=== PATIENT | female | born 1965 | race Caucasian/White ===

== ENCOUNTER 2022-12-31 10:38 | Outpatient (OUT) | payer OTHER, SELFPAY ==
--- NOTE | 2022-12-31 | XR_ITS ---
The [address] [address] Patient Name: ELIAS HELLER MRN: [id number] date: 1965 Sex: F Assigned Patient Location: [facility] Current Patient Location: [facility] Accession/Order Number: [id number] Exam Date: 12/31/2022 11:00 Report Date: 12/31/2022 12:31 At the request of: SHELDON SPICER Procedure: XR knee RT 4V PROCEDURE: XR knee RT 4V HISTORY: Right Knee Pain M25.561 , hyperextension injury COMPARISON: None. FINDINGS: BONES:No fracture, acute abnormality, or significant arthropathy. SOFT TISSUES:No visible soft tissue swelling. EFFUSION:None visible. OTHER: Negative. XR/XR knee RT 4V IMPRESSION: 1. No acute bone abnormality or visible soft tissue injury. Electronically authenticated by: CAMILLE ANGELES Date: 12/31/2022 12:31
--- NOTE | 2022-12-31 10:46 | US_ITS ---
The [address] [address] Patient Name: ELIAS HELLER MRN: [id number] date: 1965 Sex: F Assigned Patient Location: RAD Current Patient Location: [facility] Accession/Order Number: [id number] Exam Date: 12/31/2022 11:30 Report Date: 12/31/2022 13:49 At the request of: SHELDON SPICER Procedure: US venous doppler LE RT EXAMINATION: US venous doppler LE RT HISTORY: Right leg Pain M79.604 COMPARISON: No relevant comparison available. FINDINGS: REGION: Right lower extremity THROMBI: None. COMPRESSIBILITY: Normal compressibility. FLOW: Normal waveform and antegrade flow between 5 and 20 cm/s. OTHER: Fluid collection within medial aspect of popliteal fossa 4.8 x 4.6 x 1.6 cm. US/US venous doppler LE RT IMPRESSION: 1. No deep vein thrombus within the right lower extremity. 2. 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 Electronically authenticated by: CAMILLE ANGELES Date: 12/31/2022 13:49
== END 2022-12-31 10:39 | disposition home or self-care (01) ==
LOC: RAD 10:41
PROVIDERS: PCP Family Medicine; Visit Provider Family Medicine
DX: M25.561 Pain in right knee (principal); M79.604 Pain in right leg
CPT/HCPCS: 73564; 93971

== ENCOUNTER 2023-09-09 19:41 | Emergency (ER) | payer MEDICAID, SELFPAY ==
[2023-09-09 19:52] VITALS: BP 127/91; PULSE 118; TEMP 37; O2SAT 96; BMI 32.5
[2023-09-09 20:22] LABS: Bilirubin Urine NEGATIVE (NEGATIVE); Blood Urine MODERATE (NEGATIVE); Clarity Urine CLEAR (CLEAR); Color Urine YELLOW (YELLOW); Glucose Urine UA NEGATIVE (NEGATIVE); Ketones Urine NEGATIVE (NEGATIVE); Leukocyte Esterase Urine NEGATIVE (NEGATIVE); Nitrite Urine NEGATIVE (NEGATIVE); Protein Urine NEGATIVE (NEG/TRACE); Urine Microscopic Indicated YES; Urobilinogen Urine 0.2 EU/dL (0.2-1.0)
[2023-09-09 20:29] LABS: Bacteria Urine TRACE #/HPF (NONE SEEN); Cast Seen? NONE SEEN #/LPF (NONE SEEN); Crystals Seen? None Seen #/HPF (None Seen); Mucus Urine NONE SEEN (NONE SEEN); Squamous Epithelial Cell Urine FEW #/LPF (NONE/RARE); Urine Culture Indicated NO; WBC Urine 0-2 #/HPF (NONE SEEN)
--- NOTE | 2023-09-09 21:10 | ECG_ITS ---
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
--- NOTE | 2023-09-09 21:11 | CT_ITS ---
[address] [address] Patient Name: ELIAS HELLER MRN: [id number] date: 1965 Sex: F Assigned Patient Location: ER Current Patient Location: Accession/Order Number: [id number] Exam Date: 09/09/2023 21:46 Report Date: 09/09/2023 22:17 At the request of: PAO COHEN Procedure: CT abdomen pelvis w con EXAM: CT abdomen pelvis w con HISTORY: Abdominal pain, vomiting and diarrhea COMPARISON: None. TECHNIQUE: Dose reduction techniques were achieved by using automated exposure control and/or adjustment of mA and/or kV according to patient size and/or use of iterative reconstruction technique.CT of the abdomen and pelvis with contrast. FINDINGS: Mild left basilar platelike atelectasis. Mild patchy atelectasis of the right middle lobe. Liver, gallbladder, spleen, pancreas, kidneys, distal esophagus, stomach, duodenum and adrenal glands are normal. No colonic wall thickening or dilation. No small bowel dilation. No mesenteric edema. Appendix is normal. No bladder wall thickening. No acute osseous abnormality. CT/CT abdomen pelvis w con IMPRESSION: 1. No acute abnormality of the abdomen or pelvis. 2. No hydronephrosis. No hydroureter. No nephroureterolithiasis. No bladder stones. No focal bladder wall thickening. 3. No radiopaque gallstones. The pancreas is normal. Appendix is normal. Electronically authenticated by: PHIL KNIGHT Date: 09/09/2023 22:17
--- NOTE | 2023-09-09 21:12 | ED.ABDPAIN1 ---
Documented by User: MACEY Eid 09/09/23 21:21 HPI - Abdominal Pain General Chief Complaint: Abdominal Pain Stated Complaint: ABDOMINAL PAIN, HEAD PAIN, NAUSEA Time Seen by Provider: 09/09/23 21:07 Source: patient Mode of arrival: walk-in Limitations: no limitations History of Present Illness HPI narrative: Patient is a 57-year-old female who presents to the emergency department for a 1 day history of pain across the abdomen. She reports pain in the bilateral flanks, epigastrium and bilateral upper quadrants of the abdomen. She states she feels very full, she has been belching. She has had no fevers or upper respiratory symptoms. No medications taken prior to arrival. She states that she has had vomiting and diarrhea, although she has had more vomiting than diarrhea and has not had any blood in her stool. No recent antibiotics or travel. No sick contacts in the home. She denies urinary symptoms. She has had a previous tubal ligation with no other abdominal surgeries. Related Data Allergies Allergy/AdvReac Type Severity Reaction Status Date / Time meperidine [From Demerol] Allergy Mild Verified 09/09/23 19:55 Review of Systems ROS Constitutional Denies: fever or chills Ears, nose, mouth, and throat Denies: throat pain or nasal congestion Cardiovascular Denies: chest pain Respiratory Denies: shortness of breath or cough Gastrointestinal Reports: abdominal pain, nausea and diarrhea Integumentary/Breast Denies: rash Neurological Reports: headache Hematologic/Lymphatic Denies: easy bruising or easy bleeding Exam Narrative Exam Narrative: Gen.: Awake, alert, in no distress Head: Normocephalic, atraumatic ENT: Moist mucous membranes Respiratory: No respiratory distress, lungs clear bilaterally Cardio: Regular rate and rhythm Gastrointestinal: Abdomen is soft, nondistended and Tender to palpation in the epigastrium and bilateral upper quadrants of the abdomen, no guarding or rebound Extremities: Moves extremities equally Psych: Normal mood and affect Neuro: No focal neuro deficit Skin: Warm, dry, intact Constitutional Vital Signs, click to edit/add: Last Vital Signs Temp 98.6 F 09/09/23 19:52 Pulse 118 H 09/09/23 19:52 Resp 18 09/09/23 19:52 BP 127/91 09/09/23 19:52 Pulse Ox 96 09/09/23 19:52 O2 Del Method Room Air 09/09/23 19:52 Course Vital Signs Vital signs: Vital Signs Temperature 98.6 F 09/09/23 19:52 Pulse Rate 118 H 09/09/23 19:52 Respiratory Rate 18 09/09/23 19:52 Blood Pressure 127/91 09/09/23 19:52 Pulse Oximetry 96 09/09/23 19:52 Oxygen Delivery Method Room Air 09/09/23 19:52 Temperature 98.6 F 09/09/23 19:52 Pulse Rate 118 H 09/09/23 19:52 Respiratory Rate 18 09/09/23 19:52 Blood Pressure 127/91 09/09/23 19:52 Pulse Oximetry 96 09/09/23 19:52 Oxygen Delivery Method Room Air 09/09/23 19:52 MDM - Abdominal Pain MDM Narrative Medical decision making narrative: 2119: On my evaluation, the patient is uncomfortable with pain diffusely across the upper abdomen and bilateral flanks. She has no focal tenderness or pain out of proportion on exam, vitals are stable. IV was established, labs and urine obtained. Fluids, medication for pain and nausea were ordered as well as a CT scan of the abdomen and pelvis. Case is turned over to attending physician at this time for disposition. Medical Records Attestation: I reviewed the patient's medical records. Lab Data Attestation: I reviewed the patient's lab results. Labs: Lab Results 09/09/23 09/09/23 Range/Units 20:15 21:22 WBC 10.9 (4.0-11.0) 10^3/uL RBC 5.42 H (4.20-5.40) 10^6/uL Hgb 14.1 (12.0-16.0) g/dL Hct 43.5 (36.0-48.0) % MCV 80.3 L (81.0-99.0) fL MCH 26.0 L (26.7-34.0) pg MCHC 32.4 (29.9-35.2) g/dL RDW 15.7 H (11.0-15.0) % Plt Count 358 (150-450) 10^3/uL MPV 9.8 (9.5-13.5) fL Neut % (Auto) 86.1 H (43.0-75.0) % Lymph % (Auto) 8.2 L (20.5-60.0) % [place] % (Auto) 4.6 (1.7-12.0) % Eos % (Auto) 0.5 L (0.9-7.0) % Baso % (Auto) 0.2 (0.2-2.0) % Neut # (Auto) 9.4 H (1.4-6.5) 10^3/uL Lymph # (Auto) 0.9 L (1.2-3.8) 10^3/uL [place] # (Auto) 0.5 (0.3-0.8) 10^3/uL Eos # (Auto) 0.1 (0.0-0.7) 10^3/uL Baso # (Auto) 0.0 (0.0-0.1) 10^3/uL Abs Immat Gran (auto) 0.04 H (0.00-0.03) 10^3/uL Imm/Tot Granulo (auto) 0.4 (0.0-0.5) % Sodium 140 (136-145) mmol/L Potassium 3.8 (3.5-5.1) mmol/L Chloride 104 (98-107) mmol/L Carbon Dioxide 25.0 (21.0-32.0) mmol/L Anion Gap 14.8 BUN 19.0 H (7.0-18.0) mg/dL Creatinine 0.92 (0.55-1.02) mg/dL Est GFR ( Amer) >60 (>=60) Est GFR (Non-Af Amer) >60 (>=60) BUN/Creatinine Ratio 20.7 Glucose 89 (74-106) mg/dL Lactate 1.2 (0.4-2.0) mmol/L Calcium 8.9 (8.5-10.1) mg/dL Total Bilirubin 0.3 (0.2-1.0) mg/dL AST 20 (15-37) U/L ALT 34 (14-59) U/L Alkaline Phosphatase 94 (46-116) U/L Troponin I High Sens 7.6 (4.0-51.3) pg/mL Total Protein 7.0 (6.4-8.2) g/dL Albumin 3.2 L (3.4-5.0) g/dL Globulin 3.8 g/dL Albumin/Globulin Ratio 0.8 Lipase 38.0 (16.0-77.0) U/L Urine Color Yellow (YELLOW) Urine Clarity Clear (CLEAR) Urine pH 6.0 (5.0-9.0) Ur Specific [place] 1.020 (1.005-1.025) Urine Protein Negative (NEG/TRACE) mg/dL Urine Glucose (UA) Negative (NEGATIVE) mg/dL Urine Ketones Negative (NEGATIVE) mg/dL Urine Occult Blood Moderate A (NEGATIVE) Urine Nitrite Negative (NEGATIVE) Urine Bilirubin Negative (NEGATIVE) Urine Urobilinogen 0.2 (0.2-1.0) EU/dL Ur Leukocyte Esterase Negative (NEGATIVE) Urine RBC 5-10 A (0-2) #/HPF Urine WBC 0-2 A (NONE SEEN) #/HPF Ur Squamous Epith Cells Few A (NONE/RARE) #/LPF Urine Crystals None seen (None Seen) #/HPF Urine Bacteria Trace A (NONE SEEN) #/HPF Urine Casts None seen (NONE SEEN) #/LPF Urine Mucus None seen (NONE SEEN) Ur Culture Indicated? No ECG Data Attestation: I personally reviewed and interpreted this ECG as follows: (Sinus tachycardia at a rate of 100, no acute ST elevation or ectopy. EKG reviewed by attending physician) Discharge Plan Discharge Stand Alone Forms: Portal Instructions Chief Complaint: Abdominal Pain Clinical Impression: Abdominal pain, Gastroenteritis Patient Disposition: Home, Self-Care Print Language: Bruneian Instructions: Gastroenteritis (ED), Hematuria (ED) Additional Instructions: follow up with your doctor next week for recheck including recheck urine Referrals: Laurie Franks MD [Primary Care Provider] - 1 week Documented by User: Jason Smith MD 09/09/23 22:55 HPI - Abdominal Pain General Chief Complaint: Abdominal Pain Stated Complaint: ABDOMINAL PAIN, HEAD PAIN, NAUSEA Time Seen by Provider: 09/09/23 21:07 Related Data Allergies Allergy/AdvReac Type Severity Reaction Status Date / Time meperidine [From Demerol] Allergy Mild Verified 09/09/23 19:55 Exam Constitutional Vital Signs, click to edit/add: Last Vital Signs Temp 98.6 F 09/09/23 19:52 Pulse 118 H 09/09/23 19:52 Resp 18 09/09/23 19:52 BP 127/91 09/09/23 19:52 Pulse Ox 96 09/09/23 19:52 O2 Del Method Room Air 09/09/23 19:52 Course Vital Signs Vital signs: Vital Signs Temperature 98.6 F 09/09/23 19:52 Pulse Rate 118 H 09/09/23 19:52 Respiratory Rate 18 09/09/23 19:52 Blood Pressure 127/91 09/09/23 19:52 Pulse Oximetry 96 09/09/23 19:52 Oxygen Delivery Method Room Air 09/09/23 19:52 Temperature 98.6 F 09/09/23 19:52 Pulse Rate 118 H 09/09/23 19:52 Respiratory Rate 18 09/09/23 19:52 Blood Pressure 127/91 09/09/23 19:52 Pulse Oximetry 96 09/09/23 19:52 Oxygen Delivery Method Room Air 09/09/23 19:52 MDM - Abdominal Pain MDM Narrative Medical decision making narrative: 2119: On my evaluation, the patient is uncomfortable with pain diffusely across the upper abdomen and bilateral flanks. She has no focal tenderness or pain out of proportion on exam, vitals are stable. IV was established, labs and urine obtained. Fluids, medication for pain and nausea were ordered as well as a CT scan of the abdomen and pelvis. Case is turned over to attending physician at this time for disposition. care transferred at end of PA shift. Patient is feeling better after treatment by PA. CT abdomen without acute findings. labs acceptable except for mild hematuria. Patient advised of the working diagnosis and the need to followup regarding her urine Lab Data Labs: Lab Results 09/09/23 09/09/23 Range/Units 20:15 21:22 WBC 10.9 (4.0-11.0) 10^3/uL RBC 5.42 H (4.20-5.40) 10^6/uL Hgb 14.1 (12.0-16.0) g/dL Hct 43.5 (36.0-48.0) % MCV 80.3 L (81.0-99.0) fL MCH 26.0 L (26.7-34.0) pg MCHC 32.4 (29.9-35.2) g/dL RDW 15.7 H (11.0-15.0) % Plt Count 358 (150-450) 10^3/uL MPV 9.8 (9.5-13.5) fL Neut % (Auto) 86.1 H (43.0-75.0) % Lymph % (Auto) 8.2 L (20.5-60.0) % [place] % (Auto) 4.6 (1.7-12.0) % Eos % (Auto) 0.5 L (0.9-7.0) % Baso % (Auto) 0.2 (0.2-2.0) % Neut # (Auto) 9.4 H (1.4-6.5) 10^3/uL Lymph # (Auto) 0.9 L (1.2-3.8) 10^3/uL [place] # (Auto) 0.5 (0.3-0.8) 10^3/uL Eos # (Auto) 0.1 (0.0-0.7) 10^3/uL Baso # (Auto) 0.0 (0.0-0.1) 10^3/uL Abs Immat Gran (auto) 0.04 H (0.00-0.03) 10^3/uL Imm/Tot Granulo (auto) 0.4 (0.0-0.5) % Sodium 140 (136-145) mmol/L Potassium 3.8 (3.5-5.1) mmol/L Chloride 104 (98-107) mmol/L Carbon Dioxide 25.0 (21.0-32.0) mmol/L Anion Gap 14.8 BUN 19.0 H (7.0-18.0) mg/dL Creatinine 0.92 (0.55-1.02) mg/dL Est GFR ( Amer) >60 (>=60) Est GFR (Non-Af Amer) >60 (>=60) BUN/Creatinine Ratio 20.7 Glucose 89 (74-106) mg/dL Lactate 1.2 (0.4-2.0) mmol/L Calcium 8.9 (8.5-10.1) mg/dL Total Bilirubin 0.3 (0.2-1.0) mg/dL AST 20 (15-37) U/L ALT 34 (14-59) U/L Alkaline Phosphatase 94 (46-116) U/L Troponin I High Sens 7.6 (4.0-51.3) pg/mL Total Protein 7.0 (6.4-8.2) g/dL Albumin 3.2 L (3.4-5.0) g/dL Globulin 3.8 g/dL Albumin/Globulin Ratio 0.8 Lipase 38.0 (16.0-77.0) U/L Urine Color Yellow (YELLOW) Urine Clarity Clear (CLEAR) Urine pH 6.0 (5.0-9.0) Ur Specific [place] 1.020 (1.005-1.025) Urine Protein Negative (NEG/TRACE) mg/dL Urine Glucose (UA) Negative (NEGATIVE) mg/dL Urine Ketones Negative (NEGATIVE) mg/dL Urine Occult Blood Moderate A (NEGATIVE) Urine Nitrite Negative (NEGATIVE) Urine Bilirubin Negative (NEGATIVE) Urine Urobilinogen 0.2 (0.2-1.0) EU/dL Ur Leukocyte Esterase Negative (NEGATIVE) Urine RBC 5-10 A (0-2) #/HPF Urine WBC 0-2 A (NONE SEEN) #/HPF Ur Squamous Epith Cells Few A (NONE/RARE) #/LPF Urine Crystals None seen (None Seen) #/HPF Urine Bacteria Trace A (NONE SEEN) #/HPF Urine Casts None seen (NONE SEEN) #/LPF Urine Mucus None seen (NONE SEEN) Ur Culture Indicated? No Discharge Plan Discharge Stand Alone Forms: Portal Instructions Chief Complaint: Abdominal Pain Clinical Impression: Abdominal pain, Gastroenteritis Patient Disposition: Home, Self-Care Print Language: [place]ian Instructions: Gastroenteritis (ED), Hematuria (ED) Additional Instructions: follow up with your doctor next week for recheck including recheck urine Referrals: Laurie Franks MD [Primary Care Provider] - 1 week
[2023-09-09 21:30] LABS: Basophils Percent Auto 0.2 % (0.2-2.0); Eosinophils Absolute Auto 0.1 10^3/uL (0.0-0.7); Eosinophils Percent Auto 0.5 % (0.9-7.0); Hematocrit 43.5 % (36.0-48.0); Hemoglobin 14.1 g/dL (12.0-16.0); Immature Granulocytes Abs Auto 0.04 10^3/uL (0.00-0.03); Immature Granulocytes Pct Auto 0.4 % (0.0-0.5); Lymphocytes Absolute Auto 0.9 10^3/uL (1.2-3.8); Lymphocytes Percent Auto 8.2 % (20.5-60.0); Mean Corpuscular HGB Conc 32.4 g/dL (29.9-35.2); Mean Corpuscular Volume 80.3 fL (81.0-99.0); Mean Platelet Volume 9.8 fL (9.5-13.5); Monocytes Absolute Auto 0.5 10^3/uL (0.3-0.8); Monocytes Percent Auto 4.6 % (1.7-12.0); Neutrophils Absolute Auto 9.4 10^3/uL (1.4-6.5); Neutrophils Percent Auto 86.1 % (43.0-75.0); Platelet Count 358 10^3/uL (150-450); Red Blood Count 5.42 10^6/uL (4.20-5.40); Red Cell Distribution Width 15.7 % (11.0-15.0); White Blood Count 10.9 10^3/uL (4.0-11.0)
[2023-09-09] MEDS: ONDANSETRON PF 4 MG/2 ML VIAL IV (21:32)
[2023-09-09] MEDS: 0.9 % SODIUM CHLORIDE 1,000 ML 999 ML IV (21:32)
[2023-09-09] MEDS: HYOSCYAMINE SULFATE 0.125 MG TAB.SUBL SL (21:33)
[2023-09-09] MEDS: FAMOTIDINE/PF 20 MG/2 ML VIAL IV (21:33)
[2023-09-09] MEDS: HYDROMORPHONE HCL 1 MG/ML CARTRIDGE 0.5 MG IVP (21:33)
[2023-09-09 21:46] LABS: Alanine Aminotransferase 34 U/L (14-59); Albumin Globulin Ratio 0.8; Albumin Level 3.2 g/dL (3.4-5.0); Alkaline Phosphatase 94 U/L (46-116); Anion Gap 14.8; Aspartate Amino Transferase 20 U/L (15-37); BUN Creatinine Ratio 20.7; Bilirubin Total 0.3 mg/dL (0.2-1.0); Calcium 8.9 mg/dL (8.5-10.1); Chloride 104 mmol/L (98-107); Estimated GFR (African America >60 (>=60); Estimated GFR (Non-African Ame >60 (>=60); Globulin 3.8 g/dL; Glucose 89 mg/dL (74-106); Potassium 3.8 mmol/L (3.5-5.1); Sodium 140 mmol/L (136-145)
[2023-09-09 21:49] LABS: Lactate/Lactic Acid 1.2 mmol/L (0.4-2.0)
[2023-09-09 21:51] LABS: Troponin I High Sensitivity 7.6 pg/mL (4.0-51.3)
[2023-09-09] MEDS: ONDANSETRON 4 MG RAPDIS TABLET SL (23:05)
== END 2023-09-09 23:14 | disposition home or self-care (01) ==
PROVIDERS: Physician Assistant; Emergency Provider Internal Medicine; PCP Family Medicine
DX: K52.9 Noninfective gastroenteritis and colitis, unspecified (principal); R10.11 Right upper quadrant pain; Z98.51 Tubal ligation status; R51.9 Headache, unspecified; R10.12 Left upper quadrant pain; R11.0 Nausea; R31.9 Hematuria, unspecified
CPT/HCPCS: 36415; 74177; 80053; 81001; 83605; 83690; 84484; 85025; 93005; 96361; 96374; 96375; 99285; J1170; Q9967

== ENCOUNTER 2023-11-29 13:11 | Emergency (ER) | payer OTHER, SELFPAY ==
[2023-11-29 13:14] VITALS: BP 122/97; PULSE 88; TEMP 36.8; O2SAT 98; BMI 34.4
--- NOTE | 2023-11-29 13:29 | CT_ITS ---
[address] [address] Patient Name: ELIAS HELLER MRN: [id number] date: 1965 Sex: F Assigned Patient Location: ER Current Patient Location: ER Accession/Order Number: [id number] Exam Date: 11/29/2023 13:53 Report Date: 11/29/2023 14:35 At the request of: PAO COHEN Procedure: CT abdomen pelvis wo con EXAM: CT abdomen pelvis wo con HISTORY: Left flank pain COMPARISON: 09/09/2023, 01/05/2021 TECHNIQUE: CT abdomen pelvis without contrast. Axial scans with reformatted coronal and sagittal images. Individualized dose reduction used for this exam. FINDINGS: Lower chest: Stable, no acute process. ABDOMEN: Normal kidneys without renal or ureteral calculus or hydronephrosis. Unremarkable liver, adrenal glands, pancreas spleen. Normal-appearing fluid-filled gallbladder. No ascites or abdominal fluid. No adenopathy. Normal size aorta. No bowel dilatation wall thickening or edema. Normal appendix. No acute abnormality left flank. Pelvis: No mass or adenopathy or free fluid. No uterine or adnexal pathology. Small amount of fluid in the bladder. MUSCULOSKELETAL: No suspicious bone lesion. CT/CT abdomen pelvis wo con IMPRESSION: No acute abnormality lower chest, abdomen or pelvis. No acute left flank abnormality. Electronically authenticated by: CARMEN REEDER Date: 11/29/2023 14:35
--- OUTSIDE RECORDS SUMMARY | 2023-11-29 13:38 | XMS_ITS | CCD ---
Author Organization [facility] Care Team Providers Care Singing Telegram Performer Name Role Phone Laurie Spicer MD Primary Care Provider KYLE WATSON Attending Unavailable LAURIE SPICER Referring Unavailable LAURIE SPICER Primary Care Unavailable Laurie Spicer Unavailable Unavailable Unavailable MD Marissa Iglesias Attending Provider [phone] MD Jaquelin Christie Referring Provider MD Laurie Spicer Primary Care Provider Laurie Spicer Primary Care Unavailable Marissa Iglesias Attending Unavailable Marissa Iglesias Admitting Unavailable Jaquelin Christie Referring Unavailable Laurie Spicer Unavailable Marissa Iglesias Attending Unavailable Marissa Iglesias Referring Unavailable Dr. Luarie Spicer Primary Care Dr. Laurie Moe Primary Care Unav ailMarissa Harding Attending Unavailable Marissa Iglesias Referring Unavailable Jaquelin Christie Attending Unavailable Dr. Laurie Spicer Primary Care Unav ailMarissa Harding Attending Unavailable Marissa Iglesias Referring Unavailable Dr. Laurie Spicer Primary Care Unav yared Fu, DR MORTON Attending Unavailable JAMES ., DR MORTON Consulting Unavailable JAMES ., DR MORTON Admitting Unavailable LAURIE SPICER Primary Care Unavailable MARJAN CHAPA Consulting Unavailab le MISC, DR CODY Admitting Unavailable LAURIE SPICER Primary Care Unavailable MISC, DR CODY Attending Unavailable MISC, DR CODY Consulting Unavailable Roderick THOMPSON Attending Unavailable Laurie Spicer MD Primary Care Provider Karlene Wang Unavailable ALEXEI GALVAN Attending LAURIE Nicole Referring Unavailable LAURIE SPICER Primary Care Unavailable ALEXEI GALVAN Attending LAURIE Nicole Referring Unavailable LAURIE SPICER Primary Care Unavailable MARISSA IGLESIAS Attending Unavailable LAURIE SPICER Primary Care Unavailable JAJA HARDING Attending Unavailable MARISSA IGLESIAS Referring Unavailable LAURIE SPICER Primary Care Unavailable Allergies Allergy Classification Reported Allergen(s) Allergy Type Date of Onset Reaction(s) Facility (6 sources) Meperidine; Translations: [MEPERIDINE (PF)] Drug Allergy 6 GI Upset, Itching [facility] Work Phone: (20 sources) Meperidine; Translations: [Demerol TABS] Drug Allergy 2 [facility] (4 sources) Meperidine; Translations: [meperidine] Drug Allergy 2 [facility] (2 sources) Meperidine; Translations: [Demerol] Drug Allergy 5 [facility] Repository Medications Current Medications Medication Drug Class(es) Dates Sig (Normalized) Sig (Original) Aspir-81 (16 sources) Aspir-81 Active aspirin 81 mg delayed release oral tablet (12 sources) Platelet Aggregation Inhibitor, Nonsteroidal Anti-inflammatory Drug take 1 tablet by mouth in the morning aspirin 81 mg Take 1 tablet (81 mg total) by mouth in the morning. 0 Active Comment on above: Take 81 mg by mouth once daily. atorvastatin 40 mg oral tablet (17 sources) HMG-CoA Reductase Inhibitor Start: 11-05-2022 take 1 tablet by mouth once daily atorvastatin (LIPITOR) 40 mg tablet Take 1 tablet (40 mg total) by mouth nightly. 0 11/05/2022 Active Start: 06-01-2022 take 1 tablet by margoth th at bedtime Atorvastatin Calcium 40 MG Oral Tablet TAKE 1 TABLET AT BEDTIME. Quantity: 90 Refills: 1 Ordered: 31-Aug-2022 Marissa Iglesias MD Start : 01-Jun-2022 Active New start take 1 tablet by margoth th every twenty-four hours Atorvastatin Calcium 10 MG 1 tablet Orally Once a day Active busPIRone hydrochloride 10 mg oral tablet (20 sources) take 1 tablet by mouth twice daily busPIRone HCl 10 MG TAKE 1 TABLET BY MOUTH TWICE A DAY for 90 Active Calcium (19 sources) Phosphate Binder, Calcium Calcium Active Calcium + D TABS TAKE 1 TABLET DAILY. Quantity: 0 Refills: 0 Ordered: 01-Jun-2022 DO Active Calcium Carbonate / vitamin D3 (3 sources) calcium carbonat e/vitamin D3 (CALCIUM WITH VITAMIN D ORAL) Take by mouth. 0 Active Cetirizine (16 sources) Histamine-1 Receptor Antagonist Cetirizine HCl Activ e clobetasol propionate 0.5 mg/ml topical cream (7 sources) Corticosteroid Clobetasol Propi britt 0.05 % 1 application Externally Twice a day for 10 days Active Clobetasol Propi britt 0.05 % 1 application Externally Twice a day for 10 days Active cyclobenzaprine hydrochloride 10 mg oral tablet (20 sources) Muscle Relaxant Start: 06-08-2022 take 1 tablet by mouth at bedtime Cyclobenzaprine HCl 10 MG 1 tablet Orally at bedtime for 30 day(s) Jun, Active docusate sodium 100 mg oral capsule (14 sources) take 1 capsule by mouth every twenty-four hours Stool Softener 100 MG 1 capsule as needed Orally Once a day Active docusate sodium (STOOL SOFTENER ORAL) Take by mouth 2 (two) times a day. 0 Active 1 ml erenumab-aooe 70 mg/ml auto-injector (4 sources) Start: 01-18-2023 End: 05-31-2023 erenumab-aooe (AIMOVIG AUTOINJECTOR) 70 mg/mL auto-injector Indications: Chronic migraine without aura, intractable, with status migrainosus INJECT 70MG SUBCUTANEOUSLY EVERY 28 DAYS 1 mL 3 05/31/2023 Active hydroCHLOROthiazide 25 mg / triamterene 37.5 mg oral tablet (19 sources) Potassium-spar ing Diuretic, Thiazide Diuretic take 1 tablet by mouth once in the morning triamterene-hydroCH LOROthiazid (MAXZIDE-25) 37.5-25 mg per tablet Take 1 tablet by mouth in the morning. 0 Active take 1 tablet by margoth th every twenty-four hours Triamterene-HCTZ 37.5-25 MG 1 tablet in the morning Orally Once a day Active Triamterene-HCTZ 25-37.5 MG CAPS TAKE 1 CAPSULE Daily Quantity: 0 Refills: 0 Ordered: 20-Apr-2022 DO Active ibuprofen 800 mg oral tablet (20 sources) Nonsteroidal Anti-inflammatory Drug Start: 08-13-2020 ibuprofen (MOTRIN ) 800 mg tablet Take 1 tablet (800 mg total) by mouth as needed. 0 11/10/2022 Active take 1 tablet by margoth th every six hours as needed ibuprofen (MOTRIN) 200 mg tablet Take 20 0 mg by mouth every 6 hours as needed. 0 Active Comment on above: Take 200 mg by mouth every 6 hours as needed. loratadine 10 mg oral tablet (18 sources) take 1 tablet by mouth in the morning loratadine (CLARITIN) 10 mg tablet Take 1 tablet (10 mg total) by mouth in the morning. 0 Active Comment on above: Take 10 mg by mouth once daily. magnesium aspartate 250 mg / potassium aspartate 250 mg oral capsule (3 sources) take 1 capsule by mouth every twenty-four hours Potassium & Magnesium Aspartat 250-250 MG 1 capsule with a meal Orally Once a day Active magnesium oxide 400 mg oral tablet (3 sources) take 1 tablet by mouth in the morning, then take 1 tablet by mouth at bedtime magnesium oxide (MAGOX) 400 mg tablet Take 1 tablet (400 mg total) by mouth in the morning and 1 tablet (400 mg total) before bedtime. t. 0 Active meclizine hydrochloride 25 mg oral tablet (3 sources) Antiemetic take 1 tablet by mouth three times daily as needed for dizziness meclizine (ANTIVERT) 25 mg tablet Take 1 tablet (25 mg total) by mouth 3 (three) times a day as needed for dizziness. 0 Active midodrine hydrochloride 5 mg oral tablet (20 sources) alpha-Adrenergic Agonist Start: take 1 tablet by mouth every eight hours Midodrine HCl 5 MG 1 tablet Orally tid for 90 day(s) Jun, Active take 2 tablets by mo [facility] three times daily in the evening midodrine (PROAMATINE) 5 mg tablet Take 2 tablets (10 mg total) by mouth 3 (three) times a day. Takes 10MG in am and 10 mg at noon and 5mg in the PM 0 Active multivitamin capsule (3 sources) take 1 capsule by mouth in the morning multivitamin capsule Take 1 capsule by mouth in the morning. 0 Active Multivitamin preparation (16 sources) Multivitamin Act larry pantoprazole 40 mg delayed release oral tablet (20 sources) Proton Pump Inhibitor Start: 3 take 1 tablet by mouth every twenty-four hours Pantoprazole Sodium 40 MG 1 tablet Orally Once a day for 90 days Aug, Active take 1 tablet by mouth once ping y Pantoprazole Sodium 20 MG Oral Tablet Delayed Release TAKE 1 TABLET DAILY. Quantity: 0 Refills: 0 Ordered: 20-Apr-2022 DO Active Potassium (3 sources) take 40 mEq by mouth once daily POTASSIUM ORAL Take 40 mEq by mouth. daily 0 Active Potassium & Magnesium Aspartat 250-250 MG (8 sources) take 1 capsule by mouth once daily Potassium & Magnesium Aspartat 250-250 MG 1 capsule with a meal Orally Once a day Active predniSONE 20 mg oral tablet (2 sources) Start: 3 take 2 tablets by mouth every twenty-four hours predniSONE 20 MG 2 tablets Orally Once a day for 5 days Dec, Active valACYclovir 1000 mg oral tablet (2 sources) Herpesvirus Nucleoside Analog DNA Polymerase Inhibitor, Herpes Simplex Virus Nucleoside Analog DNA Polymerase Inhibitor, Herpes Zoster Virus Nucleoside Analog DNA Polymerase Inhibitor Start: 4 take 1 tablet by mouth every twelve hours valACYclovir HCl 1 GM 1 tablet Orally Twice a day for 7 days Jun, Active varenicline 0.5 mg oral tablet (20 sources) Partial Cholinergic Nicotinic Agonist Start: 3 take 1 tablet by mouth once daily APO-Varenicline 0.5 MG 1 tablet after eating with a full glass of water Orally Once a day for 30 days Aug, Active take 1 tablet by mouth once ping y Varenicline Tartrate 1 MG TAKE 1 TABLET BY MOUTH ONCE A DAY WITH A FULL GLASS OF WATER AFTER EATING for 30 Active take 5 mg by mouth once daily va renicline tartrate (VARENICLINE ORAL) Take 5 mg by mouth once daily. Take with full glass of water. 0 Active Chantix 1 MG TAB S TAKE 1 TABLET TWICE DAILY. Quantity: 0 Refills: 0 Ordered: 20-Apr-2022 DO Active 24 hr venlafaxine 150 mg extended release oral capsule (20 sources) Serotonin and Norepinephrine Reuptake Inhibitor Venlafaxine HCl ER 1 50 MG TAKE 1 CAPSULE BY MOUTH EVERY DAY WITH FOOD FOR 90 DAYS for 90 Active take 1 capsule by [facility] every twenty-four hours in the morning venlafaxine XR (EFFEXOR-XR) 75 mg 24 hr capsule Take 1 capsule (75 mg total) by mouth in the morning. 0 Active take 1 tablet by mouth once ping y Venlafaxine HCl - 75 MG Oral Tablet TAKE 1 TABLET DAILY. Quantity: 0 Refills: 0 Ordered: 20-Apr-2022 DO Active Vitamin B6 (7 sources) Vitamin B6 Activ e Completed/Discontinued Medications Medication Drug Class(es) Dates Sig (Normalized) Sig (Original) 30 ml bupivacaine hydrochloride 5 mg/ml injection (2 sources) Amide Local Anesthetic Start: 06-10-2023 End: 06-10-2023 bupivacaine PF (MARCAINE) 0.5 % (5 mg/mL) injection 20 mg Start: 06-10-2023 End: 06-10-2023 bupivacaine PF (MARCAINE) 0. 5 % (5 mg/mL) injection 20 mg fexofenadine (3 sources) Histamine-1 Receptor Antagonist Viola CAPS TAKE 1 CAPSULE Daily Quantity: 0 Refills: 0 Ordered: 01-Jun-2022 DO Active Magnesium (8 sources) Start: 04-20-2022 take 1 tablet by mouth twice daily Magnesium 400 MG Oral Tablet Take 1 tablet twice daily Quantity: 180 Refills: 1 Ordered: 31-Aug-2022 Marissa Iglesias MD Start : 20-Apr-2022 Active new start Start: 04-20-2022 take 1 tablet by [facility] twice daily Magnesium 400 MG Oral Tablet Take 1 tablet twice daily Quantity: 180 Refills: 3 Ordered: 20-Apr-2022 Marissa Iglesias MD Start : 20-Apr-2022 Active new start methylPREDNISolone 4 mg oral tablet (14 sources) Corticosteroid Start: 08-13-2020 Medrol 4 MG as directed Orally for 6 days Aug, Not-Taking/PRN Multi Vitamin Oral Tablet (3 sources) take 1 tablet by mouth once daily Multi Vitamin Oral Tablet TAKE 1 TABLET DAILY. Quantity: 0 Refills: 0 Ordered: 01-Jun-2022 DO Active potassium chloride 20 meq extended release oral tablet (8 sources) Start: 04-20-2022 take 2 tablets by mouth once daily Potassium Chloride ER 20 MEQ Oral Tablet Extended Release TAKE 2 TABLET Daily Quantity: 180 Refills: 1 Ordered: 31-Aug-2022 Marissa Iglesias MD Start : 20-Apr-2022 Active new start primidone 50 mg oral tablet (14 sources) Anti-epileptic Agent take 1 tablet by mouth every twenty-four hours Primidone 50 MG 1 tablet Orally Once a day Not-Taking/PRN pseudoephedrine hydrochloride 30 mg oral tablet (14 sources) alpha-Adrenergic Agonist take 2 tablets by mouth every six hours Sudafed 30 MG 2 tablets as needed Orally every 6 hrs Not-Taking/PRN raNITIdine 150 mg oral capsule (1 source) Histamine-2 Receptor Antagonist Ranitidine HCl 150 mg capsule Take 150 mg by mouth as needed. 0 Active Comment on above: Take 150 mg by mouth as needed. Stool Softener TABS (3 sources) Stool Softener TABS TAKE 2 TABLET Daily Quantity: 0 Refills: 0 Ordered: 01-Jun-2022 DO Active 1 ml triamcinolone acetonide 40 mg/ml injection (2 sources) Corticosteroid Start: 06-10-2023 End: 06-10-2023 triamcinolone acetonide (KENALOG-40) injection 20 mg Start: 06-10-2023 End: 06-10-2023 triamcinolone acetonide (JAIRON ALOG-40) injection 20 mg Problems Active Problems Problem Classification Problem Date Documented Da te Episodic/Chronic Abdominal pain (7 sources) Epigastric pain; Translations: [Epigastric pain] Episodic Administrative/social admission (3 sources) Follow-up status; Translations: [Other specified counseling] Episodic Anxiety disorders (18 sources) Anxiety; Translations: [Anxiety disorder, unspecified] Chronic Asthma (17 sources) Asthma; Translations: [Unspecified asthma, uncomplicated] 01-09-2016 Chronic Cardiac dysrhythmias (8 sources) Palpitations; Translations: [Palpitations] Episodic Chronic kidney disease (8 sources) Chronic kidney disease stage 3A ; Translations: [Chronic kidney disease, Stage III (moderate)] Chronic Chronic kidney disease (1 source) Chronic kidney disease; Translations: [CHRONIC KIDNEY DISEASE STAGE 3A] Onset: 3 Conditions associated with dizziness or vertigo (16 sources) Meniere's disease, unspecified ear; Translations: [Meniere's disease] Onset: 2 Chronic Conditions associated with dizziness or vertigo (6 sources) Dizziness; Translations: [Dizziness and giddiness] Onset: 2 01-09-2016 Episodic Disorders of lipid metabolism (5 sources) Hyperlipidemia; Translations: [Other and unspecified hyperlipidemia] Onset: 3 Chronic Diverticulosis and diverticulitis (1 source) Diverticular disease; Translations: [Diverticulosis of intestine, part unspecified, without perforation or abscess without bleeding] 01-09-2016 Chronic Esophageal disorders (7 sources) Gastroesophageal reflux disease; Translations: [GERD [Gastroesophageal reflux disease]] Chronic Fluid and electrolyte disorders (10 sources) Hypokalemia; Translations: [Hypopotassemia] Onset: 3 Episodic Gastritis and duodenitis (7 sources) Helicobacter-associate d gastritis; Translations: [Gastritis, Helicobacter pylori] Episodic Gastrointestinal hemorrhage (7 sources) Hematochezia; Translations: [Blood in stool] Episodic Headache; including migraine (13 sources) Migraine; Translations: [Migraine, unspecified, not intractable, without status migrainosus] Onset: 6 01-09-2016 Chronic Nausea and vomiting (7 sources) Nausea; Translations: [Nausea] Episodic Other aftercare (1 source) longterm (current) use of aspirin; Translations: [PRISON CURRENT USE OF ASPIRIN] Onset: 3 Episodic Other circulatory disease (1 source) Orthostatic hypotension; Translations: [Orthostatic hypotension] 01-09-2016 Episodic Other circulatory disease (8 sources) Low blood pressure; Translations: [Hypotension, unspecified] Episodic Other connective tissue disease (1 source) Pain in right leg Episodic Other connective tissue disease (1 source) Neuropathy; Translations: [Neuralgia and neuritis, unspecified] 06-10-2023 Episodic Other connective tissue disease (1 source) Neuralgia and neuritis, unspecified; Translations: [Neuralgia and neuritis, unspecified] Onset: 4 Episodic Other ear and sense organ disorders (1 source) Tinnitus, bilateral; Translations: [Tinnitus, bilateral] Onset: 2 Episodic Other hereditary and degenerative nervous system conditions (5 sources) Essential tremor; Translations: [ESSENTIAL TREMOR] Onset: 3 Chronic Other hereditary and degenerative nervous system conditions (11 sources) Essential tremor; Translations: [Essential tremor] Chronic Other injuries and conditions due to external causes (3 sources) Other injury of unspecified body region, initial encounter; Translations: [Blister] Episodic Other lower respiratory disease (8 sources) Dyspnea; Translations: [Shortness of breath] Episodic Other nervous system disorders (2 sources) 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; Translations: [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] Onset: 3 Chronic Other non-traumatic joint disorders (1 source) Pain in right knee Episodic Other nutritional; endocrine; and metabolic disorders (8 sources) Obesity; Translations: [Obesity, unspecified] Chronic Other nutritional; endocrine; and metabolic disorders (2 sources) Body mass index (BMI) 33.0-33.9, adult; Translations: [Body mass index (BMI) 33.0-33.9, adult] Onset: 4 Chronic Other screening for suspected conditions (not mental disorders or infectious disease) (14 sources) Patient encounter status; Translations: [Screening for lipoid disorders] Onset: 3 Episodic Other skin disorders (1 source) Dyshidrosis [pompholyx] Episodic Residual codes; unclassified (10 sources) Obstructive sleep apnea syndrome; Translations: [Obstructive sleep apnea (adult) (pediatric)] Chronic Spondylosis; intervertebral disc disorders; other back problems (1 source) Neck pain; Translations: [Cervicalgia] 01-09-2016 Episodic Substance-related disorders (20 sources) Smoker; Translations: [Nicotine dependence, unspecified, uncomplicated] Onset: 3 01-09-2016 Chronic Syncope (9 sources) Near syncope; Translations: [Syncope and collapse] Onset: 3 Episodic Unclassified (1 source) Procedure Onset: 4 Viral infection (1 source) Herpesviral vesicular dermatitis Episodic Past or Other Problems Problem Classification Problem Date Documented Da te Episodic/Chronic Mood disorders (3 sources) Mood disorders Onset: 03-04-2023 Resolved: 06-10-2023 03-04-2023 Other aftercare (3 sources) Other long term care administrator (current) drug therapy; Translations: [OTH DELIVERY OF [employer] CURRENT DRUG THERAPY] Onset: 09-09-2022 Episodic Other circulatory disease (2 sources) Hypotension, unspecified; Translations: [Hypotension, unspecified] Onset: 01-22-2023 Episodic Unclassified (8 sources) Patient status finding; Translations: [Patient new to provider] Resolved: 06-01-2022 Unclassified (3 sources) Onset: 07-01-2021 07-01-2021 Results Test Name Value Interpretation Reference Range Facility CBC AUTO DIFFon 09-07-2022 BASO # 0.1 103/ul Normal 0.0-0.1 [facility] Comment on above: Performed By: #### C BC #### [facility] [address] [address] [address] Ismael Kenney Basophils/100 WBC (Bld) 0.4 % Normal 0.2-2.0 [facility] Comment on above: Performed By: #### C BC #### [facility] [address] [address] [address] Ismael Kenney EO # 0.2 103/ul Normal 0.0-0.7 [facility] Comment on above: Performed By: #### C BC #### [facility] [address] [address] [address] Ismael Kenney Eosinophils/100 WBC (Bld) 1.5 % Normal 0.9-7.0 [facility] Comment on above: Performed By: #### C BC #### [facility] [address] [address] [address] Ismael Kenney Erythrocyte distribution width (RBC) [Ratio] 15.7 % Critically high 11.0-15.0 [facility] Comment on above: Performed By: #### C BC #### [facility] [address] [address] [address] Ismael Kenney Hematocrit (Bld) [Volume fraction] 43.7 % Normal 36.0-48.0 [facility] Comment on above: Performed By: #### C BC #### [facility] [address] [address] [address] Ismael Kenney Hemoglobin (Bld) [Mass/Vol] 13.9 g/dL Normal 12.0-16.0 [facility] Comment on above: Performed By: #### C BC #### [facility] [address] [address] [address] Ismael Kenney IG # 0.04 10e3/ul Critically high 0.00-0.03 [facility] Comment on above: Performed By: #### C BC #### [facility] [address] [place] [address] Dr. Ismael Kenney IG % 0.3 % Normal 0.0-0.5 [facility] Comment on above: Performed By: #### C BC #### [facility] [address] [place] [address] Dr. Ismael Kenney LYMPH # 3.4 103/ul Normal 1.2-3.8 [facility] Comment on above: Performed By: #### C BC #### [facility] [address] [place] [address] Dr. Ismael Kenney Lymphocytes/100 WBC (Bld) 27.6 % Normal 20.5-60.0 [facility] Comment on above: Performed By: #### C BC #### [facility] [address] [place] [address] Dr. Ismael Kenney MANUAL DIFF REQ NO Normal [facility] Comment on above: Performed By: #### C BC #### [facility] [address] [place] [address] Dr. Ismael Kenney MCH (RBC) [Entitic mass] 25.9 pg Critically low 26.7-34.0 [facility] Comment on above: Performed By: #### C BC #### [facility] [address] [place] [address] Dr. Ismael Kenney MCHC (RBC) [Mass/Vol] 31.8 g/dL Normal 29.9-35.2 [facility] Comment on above: Performed By: #### C BC #### [facility] [address] [place] [address] Dr. Ismael Kenney MCV (RBC) [Entitic vol] 81.4 fL Normal 81.0-99.0 [facility] Comment on above: Performed By: #### C BC #### [facility] [address] [place] [address] Dr. Ismael Kenney MONO # 0.8 103/ul Normal 0.3-0.8 [facility] Comment on above: Performed By: #### C BC #### [facility] [address] [address] [address] Ismael Kenney Monocytes/100 WBC (Bld) 6.4 % Normal 1.7-12.0 [facility] Comment on above: Performed By: #### C BC #### [facility] [address] [place] [address] Dr. Ismael Kenney NEUT # 7.9 103/ul Critically high 1.4-6.5 [facility] Comment on above: Performed By: #### C BC #### [facility] [address] [place] [address] Dr. Ismael Kenney Neutrophils/100 WBC (Bld) 63.8 % Normal 43.0-75.0 [facility] Comment on above: Performed By: #### C BC #### [facility] [address] [place] [address] Dr. Ismael Kenney Platelet mean volume (Bld) [Entitic vol] 10.0 fL Normal 9.5-13.5 [facility] Comment on above: Performed By: #### C BC #### [facility] [address] [place] [address] Dr. Ismael Kenney PLT 402 103/ul Normal 150-450 [facility] Comment on above: Performed By: #### C BC #### [facility] [address] [place] [address] Dr. Ismael Kenney RBC 5.37 106/ul Normal 4.20-5.40 [facility] Comment on above: Performed By: #### C BC #### [facility] [address] [place] [address] Dr. Ismael Kenney WBC 12.4 103/ul Critically high 4.0-11.0 [facility] Comment on above: Performed By: #### C BC #### [facility] [address] [place] [address] Dr. Ismael Kenney MAGNESIUMon 09-07-2022 Magnesium [Mass/Vol] 2.2 mg/dL Normal 1.8-2.4 [facility] Comment on above: Performed By: #### M G #### [facility] [address] [place] [address] Dr. Ismael Kenney POINT OF CARE GLUCOSEon Glucose [Mass/Vol] 85 mg/dL Normal 74-106 [facility] Comment on above: Performed By: #### P OCGLUC #### [facility] [address] [place] [address] Dr. Ismael Kenney PROF 14(COMP METB)on 023 Albumin [Mass/Vol] 3.6 g/dL Normal 3.4-5.0 [facility] [facility] Comment on above: Performed By: #### T SH, CMP, HSTROPN #### [facility] [address] [place] [address] Dr. Ismael Kenney Albumin/Globulin [Mass ratio] 0.9 {ratio} Normal [facility] Comment on above: Performed By: #### T SH, CMP, HSTROPN #### [facility] [address] [place] [address] Dr. Ismael Kenney ALP [Catalytic activity/Vol] 100 U/L Normal 46-116 [facility] Comment on above: Performed By: #### T SH, CMP, HSTROPN #### [facility] [address] [place] [address] Dr. Ismael Kenney ALT [Catalytic activity/Vol] 31 U/L Normal 14-59 [facility] Comment on above: Performed By: #### T SH, CMP, HSTROPN #### [facility] [address] [place] [address] Dr. Ismael Kenney Anion gap [Moles/Vol] 12.1 mmol/L Normal [facility] Comment on above: Performed By: #### T SH, CMP, HSTROPN #### [facility] [address] [place] [address] Dr. Ismael Kenney AST [Catalytic activity/Vol] 23 U/L Normal 15-37 [facility] Comment on above: Performed By: #### T SH, CMP, HSTROPN #### [facility] [address] [place] [address] Dr. Ismael Kenney Bilirubin [Mass/Vol] 0.2 mg/dL Normal 0.2-1.0 [facility] Comment on above: Performed By: #### T SH, CMP, HSTROPN #### [facility] [address] [address] [address] Ismael Kenney Calcium [Mass/Vol] 9.4 mg/dL Normal 8.5-10.1 [facility] Comment on above: Performed By: #### T SH, CMP, HSTROPN #### [facility] [address] [place] [address] Dr. Ismael Kenney Chloride [Moles/Vol] 104 mmol/L Normal 98-107 [facility] Comment on above: Performed By: #### T SH, CMP, HSTROPN #### [facility] [address] [place] [address] Dr. Ismael Kenney CO2 [Moles/Vol] 28.4 mmol/L Normal 21.0-32.0 [facility] Comment on above: Performed By: #### T SH, CMP, HSTROPN #### [facility] [address] [place] [address] Dr. Ismael Kenney Creatinine [Mass/Vol] 1.03 mg/dL Critically high 0.55-1.02 [facility] Comment on above: Performed By: #### T SH, CMP, HSTROPN #### [facility] [address] [place] [address] Dr. Ismael Kenney EGFR-AF ALBANIAN >60 Normal >=60 [facility] Comment on above: Performed By: #### T SH, CMP, HSTROPN #### [facility] [address] [place] [address] Dr. Ismael Kenney EGFR-NON AF ALBANIAN 56 mL/min/1.73m2 Critically low >=60 [facility] Comment on above: Performed By: #### T SH, CMP, HSTROPN #### [facility] [address] [address] [address] Ismael Kenney Globulin (S) [Mass/Vol] 4.2 g/dL Normal [facility] Comment on above: Performed By: #### T SH, CMP, HSTROPN #### [facility] [address] [address] [address] Ismael Kenney Glucose [Mass/Vol] 76 mg/dL Normal 74-106 [facility] Comment on above: Performed By: #### T SH, CMP, HSTROPN #### [facility] [address] [address] [address] Ismael Kenney Potassium [Moles/Vol] 4.5 mmol/L Normal 3.5-5.1 [facility] Comment on above: Performed By: #### T SH, CMP, HSTROPN #### [facility] [address] [place] [address] Dr. Ismael Kenney Protein [Mass/Vol] 7.8 g/dL Normal 6.4-8.2 [facility] Comment on above: Performed By: #### T SH, CMP, HSTROPN #### [facility] [address] [place] [address] Dr. Ismael Kenney Sodium [Moles/Vol] 140 mmol/L Normal 136-145 [facility] Comment on above: Performed By: #### T SH, CMP, HSTROPN #### [facility] [address] [address] [address] Ismael Kenney Urea nitrogen [Mass/Vol] 21.0 mg/dL Critically high 7.0-18.0 [facility] Comment on above: Performed By: #### T SH, CMP, HSTROPN #### [facility] [address] [place] [address] Dr. Ismael Kenney Urea nitrogen/Creatinin e [Mass ratio] 20.4 mg/mg Normal [facility] Comment on above: Performed By: #### T SH, CMP, HSTROPN #### [facility] [address] [place] [address] Dr. Ismael Kenney PROTIMEon 09-07-2022 INR Coag (PPP) [Relative time] {INR} Normal [facility] Comment on above: Performed By: #### P TT, PT #### [facility] [address] [place] [address] Dr. Ismael Kenney INR GUIDELINES SEE BELOW Normal [facility] Comment on above: Result Comment: BEVERLEY RED INR: 2.0 - 3.0 CONDITIONS NOT LISTED BELOW 2.5 - 3.5 FOR PROSTHETIC HEART VALVE REPLACEMENT 2.5 - 3.5 RECURRENT THROMBOSIS Performed By: #### P TT, PT #### [facility] [address] [place] [address] Dr. Ismael Kenney PT Coag (PPP) [Time] 9.6 s Normal 9.0-11.6 [facility] Comment on above: Performed By: #### P TT, PT #### [facility] [address] [place] [address] Dr. Ismael Kenney PTTon 09-07-2022 aPTT Coag (Bld) [Time] 29.5 s Normal 22.3-36.2 [facility] Comment on above: Performed By: #### P TT, PT #### [facility] [address] [place] [address] Dr. Ismael Kenney TROPONIN, HIGH SENSITIVITYon 09-07-2022 HSTROP 5.6 pg/mL Normal 4.0-51.3 [facility] Comment on above: Result Comment: CUT- OFF POINTS HAVE BEEN ESTABLISHED BASED ON THE FOURTH UNIVERSAL DEFINITIONS OF MYOCARDIAL INFARCTION. THE UPPER REFERENCE LIMIT (URL) OF TROPONIN, DEFINED THE 99TH PERCENTILE OF cTnI DISTRIBUTION IN A REFERENCE POPULATION, HAS BEEN CONFIRMED THE DECISION THRESHOLD FOR PA DIAGNOSIS. Performed By: #### T SH, CMP, HSTROPN #### [facility] [address] [place] [address] Dr. Ismael Kenney TSHon 09-07-2022 TSH 1.639 uIU/mL Normal 0.358-3.740 [facility] Comment on above: Performed By: #### T SH, CMP, HSTROPN #### [facility] [address] [address] [address] Ismael Kenney Office Visit (Cardiology)on 08-31-2022 Follow-up visit Diagnoses/Problems Assessed Orthostatic dizziness (780.4) (R42) Migraine headache (346.90) (G43.909) Hypotension arterial (458.9) (I95.9) Hyperlipidemia (272.4) (E78.5) Stage 3a chronic kidney disease (585.3) (N18.31) Pre-syncope (780.2) (R55) Current smoker (305.1) (F17.200) Class 1 obesity with body mass index (BMI) of 34.0 to 34.9 in adult (278.00,V85.34) (E66.9,Z68.34) Abnormal tilt table test (794.09) (R94.09) Orders Hyperlipidemia Renew: Atorvastatin Calcium 40 MG Oral Tablet; TAKE 1 TABLET AT BEDTIME Hyperlipidemia, Hypotension arterial, Orthostatic dizziness ALT - Alanine Aminotransferase, Serum; Status:Active - Retrospective Authorization; Requested for:31Aug2022; AST; Status:Active - Retrospective Authorization; Requested for:31Aug2022; Basic Metabolic Panel; Status:Active - Retrospective Authorization; Requested for:31Aug2022; Lipid Panel; Status:Active - Retrospective Authorization; Requested for:31Aug2022; Hypokalemia Renew: Potassium Chloride ER 20 MEQ Oral Tablet Extended Release; TAKE 2 TABLET Daily Hypotension arterial, Orthostatic dizziness Renew: Midodrine HCl - 5 MG Oral Tablet; TAKE 1 TABLET 3 TIMES DAILY. TAKE FIRST DOSE WHEN GETTING OUT OF BED, 2ND DOSE AT 11 am AND 3RD DOSE AT 4 PM ALT - Alanine Aminotransferase, Serum; Status:Active - Retrospective Authorization; Requested for:31Jan2023; AST; Status:Active - Retrospective Authorization; Requested for:31Jan2023; Basic Metabolic Panel; Status:Active - Retrospective Authorization; Requested for:31Jan2023; Lipid Panel; Status:Active - Retrospective Authorization; Requested for:31Jan2023; Palpitations Renew: Magnesium 400 MG Oral Tablet; Take 1 tablet twice daily SocHx: Current smoker Tobacco Use Screening; Status:Complete; Done: 31Aug2022 You need to quit smoking.; Status:Complete - Retrospective Authorization; Done: 31Aug2022 You need to stop smoking. Though it is not easy, more than half of all adult smokers have quit. We encourage you to write down all the reasons you should quit smoking and set a quit date for yourself. Ask us how we can help. You may also call 1-313-TQKO-NOW for free resources and assistance.; Status:Complete - Retrospective Authorization; Done: 31Aug2022 Patient Instructions Please bring all medicines, vitamins, and herbal supplements with you when you come to the office. Prescriptions will not be filled unless you are compliant with your follow up appointments or have a follow up appointment scheduled as per instruction of your physician. Refills should be requested at the time of your visit. patient may adjust her Midodrine as needed and also may take up to 4 daily labs now and in 5 months Follow up in 5 months Chief Complaint ELIAS HELELR is being seen for a 3 month follow-up of. History of Present Illness Elias presents for follow-up as suggested. She got a new puppy, the puppy wakes up at 5:30 in the morning, and for days earlier. She has had to rearrange the timing of her ProAmatine because of bouts of dizziness that happens when the effects of ProAmatine are over. Tolerating current dose without difficulty Tolerating current dose of atorvastatin. The Maxide was prescribed for Mnire's disease, and she ran out of it, and is currently not on it at the same time she is taking potassium supplementation which was prescribed by me. I told her that when she is not taking her diuretic, if she continues with potassium there is a possibility that the potassium levels may rise too much. On physical examination she does have evidence of xanthelasma, and says that multiple family members have similar findings, and there is family history of premature coronary artery disease. 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 Orthostatics were checked and she is not orthostatic and her blood pressure is at target. Briefly discussed the rationale for the ProAmatine, the dosing of ProAmatine, the fact that the frequency can be increased to 4 times a day, that the reason we avoid ProAmatine close to bedtime is to avoid supine hypertension. History so far : 1. Nicotine addiction and COPD 2. Arcus senilis 3. Family history of premature coronary artery disease 4. Mnire's disease for which she is on triamterene hydrochlorothiazide 5. Postural dizziness and presyncope 6. Palpitations 7. GERD on prophylaxis 8. Perfusion imaging study August 2021 without reversible ischemia, preserved LV ejection fraction 9. Iatrogenic hypokalemia 10. Normal NT proBNP level 49 11. Kidney disease stage III 8 12. Poor R wave progression on EKG significance unclear, most likely body habitus 13. Tilt table test 05/20/2022-patient received 250 cc of fluid prior to the test, after sublingual nitroglycerin, within 6 minutes patient developed symptoms of feeling hot diaphoretic, associated with significant (more content not included)... Normal [employer] Tobacco Screening.on 023 Tobacco use status [facility]PH[facility] a) Yes [facility] [address] [address] DO Work Phone: Tobacco Screening. Yes [facility] [facility] DO Work Phone: Office Visit (Cardiology)on 06-01-2022 Follow-up visit Diagnoses/Problems Assessed Orthostatic dizziness (780.4) (R42) Pre-syncope (780.2) (R55) Palpitations (785.1) (R00.2) Hyperlipidemia (272.4) (E78.5) Abnormal tilt table test (794.09) (R94.09) Encounter to discuss test results (V65.49) (Z71.2) Hypotension arterial (458.9) (I95.9) Class 1 obesity with body mass index (BMI) of 33.0 to 33.9 in adult (278.00,V85.33) (E66.9,Z68.33) Current smoker (305.1) (F17.200) Orders Class 1 obesity with body mass index (BMI) of 33.0 to 33.9 in adult Healthy Weight Tips; Status:Complete - Retrospective Authorization; Done: 01Jun2022 Some eating tips that can help you lose weight.; Status:Complete - Retrospective Authorization; Done: 01Jun2022 Hyperlipidemia Start: Atorvastatin Calcium 40 MG Oral Tablet; TAKE 1 TABLET AT BEDTIME ALT - Alanine Aminotransferase, Serum; Status:Active - Retrospective Authorization; Requested for:30Jul2022; AST; Status:Active - Retrospective Authorization; Requested for:30Jul2022; Lipid Panel; Status:Active - Retrospective Authorization; Requested for:30Jul2022; Hypotension arterial, Orthostatic dizziness Start: Midodrine HCl - 5 MG Oral Tablet; TAKE 1 TABLET 3 TIMES DAILY. TAKE FIRST DOSE WHEN GETTING OUT OF BED, 2ND DOSE AT 11 am AND 3RD DOSE AT 4 PM SocHx: Current smoker You need to quit smoking.; Status:Complete - Retrospective Authorization; Done: 01Jun2022 Tobacco Use Screening; Status:Complete; Done: 01Jun2022 You need to stop smoking. Though it is not easy, more than half of all adult smokers have quit. We encourage you to write down all the reasons you should quit smoking and set a quit date for yourself. Ask us how we can help. You may also call 6-969-KAAQMerkleNOW for free resources and assistance.; Status:Complete - Retrospective Authorization; Done: 01Jun2022 Patient Instructions Please bring all medicines, vitamins, and herbal supplements with you when you come to the office. Prescriptions will not be filled unless you are compliant with your follow up appointments or have a follow up appointment scheduled as per instruction of your physician. Refills should be requested at the time of your visit. Follow up in 3 months Chief Complaint ELIAS HELLER is being seen for tilt resutls. History of Present Illness Patient was most recently seen 04/20/2022, and reports for follow-up after tilt table test. She continues to have bouts of lightheadedness with sudden changes in posture. She has not passed out or fallen. She denies palpitations. Laboratory data particularly the lipid profile that we ordered was reviewed. She has hyperlipidemia, and it is prudent to initiate therapy. History so far : 1. Nicotine addiction and COPD 2. Arcus senilis 3. Family history of premature coronary artery disease 4. Mnire's disease for which she is on triamterene hydrochlorothiazide 5. Postural dizziness and presyncope 6. Palpitations 7. GERD on prophylaxis 8. Perfusion imaging study August 2021 without reversible ischemia, preserved LV ejection fraction 9. Iatrogenic hypokalemia 10. Normal NT proBNP level 49 11. Kidney disease stage III 8 12. Poor R wave progression on EKG significance unclear, most likely body habitus 13. Tilt table test 05/20/2022-patient received 250 cc of fluid prior to the test, after sublingual nitroglycerin, within 6 minutes patient developed symptoms of feeling hot diaphoretic, associated with significant drop in blood pressure and heart rate consistent with classic neurocardiogenic syncope. She was placed in the supine position with improvement of symptoms. 14. Hyperlipidemia based on recent blood work which is as detailed below Laboratory data from 05/05/2022 on current medical therapy shows normal potassium level of 4.3, she was previously hypokalemic. GFR is greater than 60 sodium 143 total cholesterol 226 HDL 62 triglycerides 103 and LDL 143. Recommendations: Tilt table results were reviewed, recent laboratory data was also reviewed. Her potassium has normalized. Unable to take her off the Maxide because of Mnire's disease which gets exacerbated when she is not on this medication. Continues to have minor flares of Mnire's. This patient has multiple cardiac risk factors and family history of premature coronary artery disease. Ongoing risk factor modification is always encouraged, we will initiate atorvastatin 40 mg daily and check fasting liver and lipid profile in 3 to 4 months. We are also recommending ProAmatine, 5 mg prior to rising up, 5 mg around 11 AM to 12 noon, and 5 mg around 3 or 4 in the afternoon. Potential side effects of ProAmatine was reviewed, I did not elicit any contraindications for ProAmatine. Patient should continue to exercise caution with sudden changes in posture. Follow-up as scheduled. Adequate hydration and focus on regular aerobic activity as tolerated was also talked about Surgical History Problems History of Knee surgery History of Tonsillectomy History of Tubal liga (more content not included)... Normal [employer] Tobacco Screening.on 023 Adult depression screening assessment No [facility] DO Work Phone: Fall risk assessment a) No falls within the last year [facility] DO Work Phone: Tobacco use status CP a) Yes [facility] [address] DO Work Phone: Tobacco Screening. Yes [facility] [address] DO Work Phone: CA tilt table teston 023 CA tilt table test [place] [address] Cardiology Report Signed Patient: Elias Heller MR#: [id number] 72 : 1965 Acct:[id number] Age/Sex: 56 / F ADM Date: 05/20/22 Loc: Room: Type: [facility] Attending Dr: Marissa Iglesias MD Copies to: MD Jaquelin Leblanc MD Ordering Provider: Marissa Iglesias MD Date of Service: 05/20/22 CA/CA tilt table test: syncope REFERRING PHYSICIAN: Marissa Iglesias MD REASON FOR THE PROCEDURE: Recurrent episode of lightheadedness, dizziness and presyncope. PROCEDURE: The patient underwent standard head-up tilt table test. She did receive a total of 250 mL of normal saline prior to the procedure. The patient was tilted to the upright position for 25 minutes. Blood pressure, heart rate, and O2 saturation were monitored throughout the procedure. Initially, the patient demonstrated physiologic hemodynamic response to tilt maneuver. Then, the patient was given sublingual nitroglycerin and within 6 minutes, the patient developed prodromal symptoms of feeling hot, diaphoretic associated with significant drop in the blood pressure and heart rate consistent with a classic neurocardiogenic syncope or vasodepressor syncope. The patient was placed in the supine position with improvement of her symptoms. CONCLUSION: Positive tilt table test for hemodynamic parameter, consistent with neurocardiogenic syncope/vasodepressor syncope. RECOMMENDATION: The patient was educated about neurocardiogenic syncope. She was advised to increase her fluid and salt intake. She was advised to discuss her primary physician treatment for her Meniere disease and consideration to discontinue her long-term diuretic therapy. The patient was advised to avoid hot and humid environment and standing in the upright position for a long period of time. 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 Iglesias. Transcribed By: TAISHA 05/20/22 1548 Dictated By: Jaquelin Christie MD 05/20/22 1139 Signed By: 05/21/22 0946 [facility] No Panel Informationon 05-20 [facility] E[facility] DO Work Phone: LIPID PROFILEon 05-05-2022 CHOL-HDL RATIO NORM SEE BELOW Normal [facility] Comment on above: Result Comment: 3.3 - 4.4 LOW RISK 4.4 - 7.1 AVERAGE RISK 7.1 - 11.0 MODERATE RISK >11.0 HIGH RISK Performed By: #### L IPID, BMP #### [facility] [address] [address] [address] Ismael Kenney Cholesterol [Mass/Vol] 226 mg/dL Critically high <=200 [facility] Comment on above: Performed By: #### L IPID, BMP #### [facility] [address] [address] [address] Ismael Kenney Cholesterol in HDL [Mass/Vol] 62 mg/dL Critically high 40-60 [facility] Comment on above: Performed By: #### L IPID, BMP #### [facility] [address] [address] [address] Ismael Kenney Cholesterol in LDL [Mass/Vol] 143.4 mg/dL Normal [facility] Comment on above: Performed By: #### L IPID, BMP #### [facility] [address] [address] [address] Ismael Kenney Cholesterol.total/ Cholesterol in HDL [Mass ratio] 3.6 {ratio} Normal [facility] Comment on above: Performed By: #### L IPID, BMP #### [facility] [address] [address] [address] Ismael Kenney HDL NORMAL > or = 60 mg/dl - LO W CARDIOVASCULAR RISK <40 mg/dl - HIGH CARDIOVASCULAR RISK Normal [facility] Comment on above: Performed By: #### L IPID, BMP #### [facility] [address] [address] [address] Ismael Kenney LDL CALC NORMAL SEE BELOW Normal [facility] Comment on above: Result Comment: <100 mg/dl OPTIMAL 100 - 129 mg/dl NEAR OR ABOVE OPTIMAL 130 - 159 mg/dl BORDERLINE HIGH 160 - 189 mg/dl HIGH >190 mg/dl VERY HIGH Performed By: #### L IPID, BMP #### [facility] [address] [address] [address] Ismael Kenney Triglyceride [Mass/Vol] 103 mg/dL Normal <=150 [facility] Comment on above: Performed By: #### L IPID, BMP #### [facility] [address] [address] [address] Ismael Kenney VLDL CALC 20.6 mg/dL Normal [facility] Comment on above: Performed By: #### L IPID, BMP #### [facility] [address] [address] [address] Ismael Kenney PROF CHEM 8 (BAS METB)on Anion gap [Moles/Vol] 11.2 mmol/L Normal [facility] Comment on above: Performed By: #### L IPID, BMP #### [facility] [address] [place] [address] Dr. Ismael Kenney Calcium [Mass/Vol] 9.0 mg/dL Normal 8.5-10.1 [facility] Comment on above: Performed By: #### L IPID, BMP #### [facility] [address] [address] [address] Ismael Kenney Chloride [Moles/Vol] 105 mmol/L Normal 98-107 [facility] Comment on above: Performed By: #### L IPID, BMP #### [facility] [address] [address] [address] Ismael Kenney CO2 [Moles/Vol] 31.1 mmol/L Normal 21.0-32.0 [facility] Comment on above: Performed By: #### L IPID, BMP #### [facility] [address] [address] [address] Ismael Kenney Creatinine [Mass/Vol] 0.92 mg/dL Normal 0.55-1.02 [facility] Comment on above: Performed By: #### L IPID, BMP #### [facility] [address] [address] [address] Ismael Kenney EGFR-AF ALBANIAN >60 Normal >=60 [facility] Comment on above: Performed By: #### L IPID, BMP #### [facility] [address] [address] [address] Ismael Kenney EGFR-NON AF ALBANIAN >60 Normal >=60 [facility] Comment on above: Performed By: #### L IPID, BMP #### [facility] [address] [address] [address] Ismael Kenney Glucose [Mass/Vol] 98 mg/dL Normal 74-106 [facility] Comment on above: Performed By: #### L IPID, BMP #### [facility] [address] [address] [address] Ismael Kenney Potassium [Moles/Vol] 4.3 mmol/L Normal 3.5-5.1 [facility] Comment on above: Performed By: #### L IPID, BMP #### [facility] Laboratory [address] [address] [address] Ismael Kenney Sodium [Moles/Vol] 143 mmol/L Normal 136-145 [facility] Comment on above: Performed By: #### L IPID, BMP #### [facility] Laboratory [address] [address] [address] Ismael Kenney Urea nitrogen [Mass/Vol] 19.0 mg/dL Critically high 7.0-18.0 [facility] Comment on above: Performed By: #### L IPID, BMP #### [facility] Laboratory [address] [address] [address] Ismael Kenney Urea nitrogen/Creatinin e [Mass ratio] 20.7 mg/mg Normal [facility] Comment on above: Performed By: #### L IPID, BMP #### [facility] Laboratory [address] [address] [address] Ismael Kenney Office Visit (Cardiology)on 04-20-2022 Follow-up visit Diagnoses/Problems Assessed Stage 3a chronic kidney disease (585.3) (N18.31) Hypokalemia (276.8) (E87.6) Migraine headache (346.90) (G43.909) Palpitations (785.1) (R00.2) Pre-syncope (780.2) (R55) Screening for hyperlipidemia (V77.91) (Z13.220) Shortness of breath (786.05) (R06.02) Patient new to provider Class 1 obesity with body mass index (BMI) of 33.0 to 33.9 in adult (278.00,V85.33) (E66.9,Z68.33) Current smoker (305.1) (F17.200) Hypotension arterial (458.9) (I95.9) Orders Class 1 obesity with body mass index (BMI) of 33.0 to 33.9 in adult Healthy Weight Tips; Status:Complete; Done: [id number] Some eating tips that can help you lose weight.; Status:Complete; Done: 80Ais9122 Hypokalemia Start: Potassium Chloride ER 20 MEQ Oral Tablet Extended Release; TAKE 2 TABLET Daily Hypokalemia, Stage 3a chronic kidney disease Basic Metabolic Panel; Status:Active; Requested for:[id number]; Palpitations Start: Magnesium 400 MG Oral Tablet; Take 1 tablet twice daily IO EKG Electrocardiogram- 12 Lead; Status:Complete; Done: [id number] Pre-syncope Tilt Table; Status:Hold For - Scheduling; Requested for:[id number]; Screening for hyperlipidemia Lipid Panel; Status:Active; Requested for:[id number]; SocHx: Current smoker Tobacco Use Screening; Status:Complete; Done: [address] You need to quit smoking.; Status:Complete; Done: 14Xsd0274 Tobacco Use Screening; Status:Complete; Done: 32Scv6784 You need to stop smoking. Though it is not easy, more than half of all adult smokers have quit. We encourage you to write down all the reasons you should quit smoking and set a quit date for yourself. Ask us how we can help. You may also call 4-947-JOWMNOW for free resources and assistance.; Status:Complete; Done: 19Ceh3518 Tobacco Use Screening; Status:Complete; Done: 88Ndn2641 Patient Instructions Please bring all medicines, vitamins, and herbal supplements with you when you come to the office. Prescriptions will not be filled unless you are compliant with your follow up appointments or have a follow up appointment scheduled as per instruction of your physician. Refills should be requested at the time of your visit. Follow-up after testing completed Chief Complaint ELIAS HELLER is being seen for a consultation for. History of Present Illness 56-year-old female is being referred by neurology to consider tilt table testing. Symptoms are postural dizziness and presyncope. Patient is a poor historian. She has tobacco dependence anxiety and depression migraine headaches she reports that she has been off work are not on medical leave since May 2021 because of migraine headaches asthma exacerbation and COPD, hiatal hernia with GERD, persistent heartburn, excessive ingestion of caffeine prediabetes intermittent palpitations, a Holter in May 2020 reportedly showed PVCs 0.29% 1 5 beat run of supraventricular tachycardia no bradycardia dysrhythmia palpitations are sporadic, 3-4 times a month, no associated chest discomfort does feel lightheaded. She takes triamterene hydrochlorothiazide to treat Mnire's disease according to her. She is also on antianxiety agents. Family history of heart disease in both parents History of 2 pack/day cigarettes, difficult for her to quit On physical examination, she has arcus centimeters. He has clear lung zaidi regular heart sounds without murmur rub or gallop she is not orthostatic and extremities show no edema Perfusion imaging study from August 2021 was reported to show LVEF of 74% no reversible ischemia or fixed defect described as small and of mild severity was reported in the basal anterior and mid anterior segments breast attenuation artifact was also noted. Laboratory data August 2021 sodium 139 potassium 3.7 GFR 48 liver enzymes normal NT proBNP level was normal at 49 CTA of chest August 2021-no evidence of aortic dissection or pulmonary embolism no mediastinal lymph nodes EKG today normal sinus rhythm at 85 NM interval 148 ms QRS duration 80 ms QTC 421 ms poor R wave progression Assessment: 1. Nicotine addiction and COPD 2. Arcus cellulitis 3. Family history of premature coronary artery disease 4. Mnire's disease for which she is on triamterene hydrochlorothiazide 5. Postural dizziness and presyncope 6. Palpitations 7. GERD on prophylaxis 8. Perfusion imaging study August 2021 without reversible ischemia, preserved LV ejection fraction 9. Iatrogenic hypokalemia 10. Normal NT proBNP level 49 11. Kidney disease stage III 8 12. Poor R wave progression on EKG significance unclear, most likely body habitus Patient is primarily here for consideration of tilt table test Recommendations: Marissa Iglesias MD FACC 1. Start potassium chloride 20 mEq p.o. daily 2. Magnesium oxide 400 mg p.o. twice daily 3. Lifestyle modification to include aggressive hydration, slow changes in posture, avoiding situations that may prompt presyncope or syncope, and methods to pelon (more content not included)... Normal [employer] Tobacco Screening.on 022 Adult depression screening assessment No -[facility] [address] DO Work Phone: Tobacco use status [facility] a) Yes [facility] 250 DO Work Phone: Tobacco Screening. Yes [facility] [address] DO Work Phone: ROSE MARIEOVjason 01-22-2022 CNOV Office Visit (NEADFV ) -------- IPNAELIAS THOMAS ([id number]) 1965 F Date Time Provider Department 01/22/22 1:00 PM KYLE WATSONFV During your visit today, we recorded the following information about you: Pulse Blood pressure Weight Height 67/minute 100/71 83.9 kg 1.6 m Kyle Watson MD 01/22/2022 1:50 PM Signed INITIAL CONSULT - [facility]AC[facility] MEDICINE SERVICE DATE: January 22, 2022 Location: [facility] Participants: patient, adult daughter and provider Requesting Provider: Recommendations of care will be communicated by shared medical record. Member Name Role and Specialty Contact Info Address Comments Laurie Spicer MD Referring [facility] [id number] - Subjective HPI: Elias M Pina is a 56 year old female with a chief complaint of migraines. She says that she she has a neurologist and she believes that her neurologist is doing a good job, she is here because her and her PCP do not think so. She also mentions she has Meniere's disease, her tinnitus is distracting. Meniere's diet is challenging. Also she mentions positional lightheadedness and near syncope. Chart review: Dr. Alexei Galvan MD, 01/19/2022. See note for description of her migraines and medications trials. Current Outpatient Medications Medication Sig topiramate (TOPAMAX) 50 mg tablet Take 1/2 tablet daily x 1 week then increase to 1 tablet daily busPIRone (BUSPAR) 10 mg tablet Take 10 mg by mouth twice daily. cyclobenzaprine (FLEXERIL) 10 mg tablet Take 10 mg by mouth daily at bedtime. AIMOVIG AUTOINJECTOR 70 mg/mL auto-injector meclizine (ANTIVERT) 25 mg tab Take 25 mg by mouth. Multivitamin capsule Take 1 capsule by mouth every morning. pantoprazole DR (PROTONIX) 40 mg tablet Take 40 mg by mouth once daily. triamterene-hydroCHLOROt hiazide (DYAZIDE) 37.5-25 mg per capsule TAKE 1 CAPSULE BY MOUTH EVERY DAY IN THE MORNING venlafaxine ER (EFFEXOR XR) 75 mg 24 hr capsule Take 75 mg by mouth once daily. aspirin, enteric coated (ASPIRIN, ENTERIC COATED) 81 mg EC tablet Take 81 mg by mouth once daily. loratadine (CLARITIN) 10 mg tablet Take 10 mg by mouth once daily. ibuprofen (MOTRIN) 200 mg tablet Take 200 mg by mouth every 6 hours as needed. No current facility-administered medications for this visit. PAST MEDICAL HISTORY Diagnosis Date Asthma Diverticular disease Dizziness Migraine Neck pain Postural hypotension Smoker PAST SURGICAL HISTORY Procedure Laterality Date KNEE ARTHROSCOP MENISCUS REPAIR MED/LAT TONSILLECTOMY HX TUBAL LIGATION HX Social History Tobacco Use Smoking status: Every Day Packs/day: 1.00 Years: 30.00 Pack years: 30.00 Types: Cigarettes Substance Use Topics Alcohol use: No Drug use: No FAMILY HISTORY Problem Relation Age of Onset Hypertension Father Stroke Paternal Grandfather Heart Failure Paternal Grandfather Heart Failure Father Arthritis Paternal Grandmother ALLERGIES Allergen Reactions Demerol [Meperidine* GI Upset dizzy Objective REVIEW OF SYSTEMS: GENERAL: no fevers or irritability. HEENT: no nose bleeds or other nasal problems. NECK: Negative for stiffness, lumps or significant neck swelling RESPIRATORY: Negative for cough, wheezing or respiratory distress. CARDIOVASCULAR: See HPI GI: Negative for abdominal discomfort, blood in stools or black stools or change in bowel habits : No history of dysuria, frequency or incontinence MUSCULOSKELETAL: Negative for joint pain or swelling, back pain or muscle pain. SKIN: Negative for lesions, rash, and itching. NEURO: See HPI PHYSICAL EXAM: BP 100/71 Pulse 67 Ht 160 cm (5' 3 ) Wt 83.9 kg (185 lb) LMP 01/02/2016 SpO2 100% BMI 32.77 kg/m? Mental Status: alert, oriented to person, place and time and follows commands. Funduscopic exam: no papilledema, flat disc Cranial Nerves: CNII: visual zaidi full to confrontation CNIII, IV, : Pupils equal, round and reactive to light, full extraocular movements without nystagmus CN V: Facial sensation intact bilaterally to fine touch CN VII: Facial muscles symmetric and strong CN VIII: Hears finger rub well bilaterally CN IX: Gag Reflex Intact CN X: Palate elevates symmetrically CN XI: Full strength shoulder shrug bilaterally CN XII: Tongue protrusion full and midline Motor Exam: Tone is normal throughout, normal bulk, no muscle atrophy. 5/5 strength throughout, no drift in upper and lower extremities. Reflexes: symmetric bilaterally Sensation: Intact to light touch in upper and lower extremities. Coordination: finger-to- nose intact bilaterally. Gait: Patient's gait is normal. Impression/Recommendatio ns -Positional symptoms. She carries a diagnosis of postural hypotension. Says her PCP has been giving h (more content not included)... Normal [facility] Vital Signs Date Time Vital Sign Value Performing Clinician Facility 06-11-2023 10:30-0500 Body height 160.02 cm Karlene Wang Other [employer] Other 06-11-2023 10:30-0500 Body mass index (BMI) [Ratio] 34.01 kg/m2 Karlene Wang Other [employer] Other 06-11-2023 10:30-0500 Body weight 87.09 kg Karlene Wang Other [employer] Other 06-11-2023 10:30-0500 Diastolic blood pressure 80 mm[Hg] Karlene Wang Other [employer] Other 06-11-2023 10:30-0500 SaO2% (BldA) [Mass fraction] 96 % Karlene Wang Other [employer] Other 06-11-2023 10:30-0500 Systolic blood pressure 116 mm[Hg] Karlene Wang Other [employer] Other 06-10-2023 12:00-0500 Body height 160 cm Alexei Galvan MD Work Phone: [employer] 06-10-2023 12:00-0500 Body mass index (BMI) [Ratio] 34.02 kg/m2 Alexei Galvan MD Work Phone: [employer] 06-10-2023 12:00-0500 Body weight 87.09 kg Alexei Galvan MD Work Phone: [employer] 06-10-2023 12:00-0500 Diastolic blood pressure 69 mm[Hg] lAexei Galvan MD Work Phone: [employer] 06-10-2023 12:00-0500 Heart rate 78 /min Alexei Galvan MD Work Phone: [employer] 06-10-2023 12:00-0500 Systolic blood pressure 120 mm[Hg] Alexei Galvan MD Work Phone: [employer] 02-15-2023 09:15-0400 Body height 160.02 cm Laurie Spicer Other [employer] Other 02-15-2023 09:15-0400 Body mass index (BMI) [Ratio] 34.72 kg/m2 Laurie Spicer Other [employer] Other 02-15-2023 09:15-0400 Body weight 88.91 kg Laurie Spicer Other [employer] Other 02-15-2023 09:15-0400 Diastolic blood pressure 78 mm[Hg] Laurie Spicer Other [employer] Other 02-15-2023 09:15-0400 Systolic blood pressure 116 mm[Hg] Laurie Spicer Other [employer] Other 12-31-2022 10:15-0400 Body height 160.02 cm Laurie Spicer Other [employer] Other 12-31-2022 10:15-0400 Body mass index (BMI) [Ratio] 34.65 kg/m2 Laurie Spicer Other [employer] Other 12-31-2022 10:15-0400 Body weight 88.72 kg Laurie Spicer Other [employer] Other 12-31-2022 10:15-0400 Diastolic blood pressure 75 mm[Hg] Laurie Spicer Other [employer] Other 12-31-2022 10:15-0400 Systolic blood pressure 111 mm[Hg] Laurie Spicer Other [employer] Other 09-10-2022 14:15-0400 Body height 160.02 cm Laurie Spicer Other [employer] Other 09-10-2022 14:15-0400 Body mass index (BMI) [Ratio] 34.18 kg/m2 Laurie Spicer Other [employer] Other 09-10-2022 14:15-0400 Body weight 87.54 kg Laurie Spicer Other [employer] Other 09-10-2022 14:15-0400 Diastolic blood pressure 72 mm[Hg] Laurie Spicer Other [employer] Other 09-10-2022 14:15-0400 SaO2% (BldA) [Mass fraction] 99 % Laurie Spicer Other [employer] Other 09-10-2022 14:15-0400 Systolic blood pressure 112 mm[Hg] Laurie Spicer Other [employer] Other 08-31-2022 08:55-0400 Diastolic blood pressure 80 mm[Hg] Laurie Spicer Work Phone: [employer] [address] DO Work Phone: 08-31-2022 08:55-0400 Systolic blood pressure 124 mm[Hg] Laurie Spicer Work Phone: [employer] 250 DO Work Phone: 08-31-2022 08:52-0400 Body height 160.02 cm Laurie Spicer Work Phone: [employer] 250 DO Work Phone: 08-31-2022 08:52-0400 Body mass index (BMI) [Ratio] 34.72 kg/m2 Laurie Spicer Work Phone: [employer] 250 DO Work Phone: 08-31-2022 08:52-0400 Body surface area Derived from formula 1.92 m2 Laurie Spicer Work Phone: [employer] 250 DO Work Phone: 08-31-2022 08:52-0400 Body weight 88.91 kg Laurie Spicer Work Phone: [facility] [employer] 250 DO Work Phone: 08-31-2022 08:52-0400 Diastolic blood pressure 84 mm[Hg] Laurie Spicer Work Phone: [facility] [employer] 250 DO Work Phone: 08-31-2022 08:52-0400 Heart rate 84 /min Laurie Spicer Work Phone: [facility] [employer] 250 DO Work Phone: 08-31-2022 08:52-0400 Systolic blood pressure 128 mm[Hg] Laurie Spicer Work Phone: [facility] [employer] 250 DO Work Phone: 06-09-2022 10:15-0500 Body height 160.02 cm Laurie Spicer Other [employer] Other 06-09-2022 10:15-0500 Body mass index (BMI) [Ratio] 34.01 kg/m2 Laurie Spicer Other [employer] Other 06-09-2022 10:15-0500 Body weight 87.09 kg Laurie Spicer Other [employer] Other 06-09-2022 10:15-0500 Diastolic blood pressure 80 mm[Hg] Laurie Spicer Other [employer] Other 06-09-2022 10:15-0500 SaO2% (BldA) [Mass fraction] 99 % Laurie Spicer Other [employer] Other 06-09-2022 10:15-0500 Systolic blood pressure 114 mm[Hg] Laurie Aguilera [facility] [employer] Other 06-01-2022 11:01-0500 Diastolic blood pressure 60 mm[Hg] Laurie Spicer Work Phone: [facility] 250 DO Work Phone: 06-01-2022 11:01-0500 Systolic blood pressure 114 mm[Hg] Laurie Spicer Work Phone: [facility] 250 DO Work Phone: 06-01-2022 10:31-0500 Body height 160.02 cm Laurie Spicer Work Phone: [facility] 250 DO Work Phone: 06-01-2022 10:31-0500 Body mass index (BMI) [Ratio] 33.83 kg/m2 Laurie Spicer Work Phone: [facility] 250 DO Work Phone: 06-01-2022 10:31-0500 Body surface area Derived from formula 1.9 m2 Laurie Spicer Work Phone: [facility] 250 DO Work Phone: 06-01-2022 10:31-0500 Body weight 86.64 kg Laurie Spicer Work Phone: [facility] 250 DO Work Phone: 06-01-2022 10:31-0500 Diastolic blood pressure 80 mm[Hg] Laurie Spicer Work Phone: [facility] 250 DO Work Phone: 06-01-2022 10:31-0500 Heart rate 80 /min Laurie Spicer Work Phone: [facility] 250 DO Work Phone: 06-01-2022 10:31-0500 Systolic blood pressure 120 mm[Hg] Laurie Spicer Work Phone: [facility] DO Work Phone: 05-20-2022 11:15-0500 Diastolic blood pressure 74 mm[Hg] MD Jaquelin Christie Work Phone: [facility] 05-20-2022 11:15-0500 Heart rate 78 /min MD Jaquelin Christie Work Phone: [facility] 05-20-2022 11:15-0500 Systolic blood pressure 110 mm[Hg] MD Jaquelin Christie Work Phone: [facility] 05-20-2022 10:49-0500 SaO2% (BldA) [Mass fraction] 99 % MD Jaquelin Christie Work Phone: [facility] 05-05-2022 10:09-0500 143.4 1 Laurie Spicer Work Phone: [facility] 250 DO Work Phone: Comment on above: [facility] 05-05-2022 10:09-0500 67 1 Laurie Spicer Work Phone: [facility] 250 DO Work Phone: Comment on above: [id number] 04-20-2022 12:39-0500 Diastolic blood pressure 80 mm[Hg] Laurie Spicer Work Phone: [facility] 250 DO Work Phone: 04-20-2022 12:39-0500 Systolic blood pressure 114 mm[Hg] Laurie Spicer Work Phone: [facility] 250 DO Work Phone: 04-20-2022 12:38-0500 Body height 160.02 cm Laurie Spicer Work Phone: [facility] 250 DO Work Phone: 04-20-2022 12:38-0500 Body mass index (BMI) [Ratio] 33.19 kg/m2 Laurie Spicer Work Phone: [facility] 250 DO Work Phone: 04-20-2022 12:38-0500 Body surface area Derived from formula 1.88 m2 Laurie Spicer Work Phone: [facility] 250 DO Work Phone: 04-20-2022 12:38-0500 Body weight 85 kg Laurie Spicer Work Phone: [facility] 250 DO Work Phone: 04-20-2022 12:38-0500 Diastolic blood pressure 82 mm[Hg] Laurie Spicer Work Phone: [facility] 250 DO Work Phone: 04-20-2022 12:38-0500 Heart rate 85 /min Laurie Spicer Work Phone: [facility] 250 DO Work Phone: 04-20-2022 12:38-0500 Systolic blood pressure 118 mm[Hg] Laurie Spicer Work Phone: [facility] 250 DO Work Phone: Encounters Encounter Date Encounter Type Care Provider Facility Start: 10-04-2023 End: 10-04-2023 ambulatory [facility] Start: 09-15-2023 End: 09-15-2023 ambulatory Laurie Spicer Other [place] [employer] Other Start: 09-15-2023 Telephone encounter Laurie Spicer [facility] Start: 09-13-2023 End: 09-13-2023 ambulatory [facility] Start: 06-22-2023 Telephone encounter [facility] Start: 06-11-2023 End: 06-11-2023 ambulatory Karlene Felipe Other [employer] Other Start: 06-11-2023 Office outpatient vi sit 15 minutes Karlene Wang [facility] Start: 06-10-2023 End: 06-10-2023 ambulatory ALEXEI GALVAN [facility] Start: 06-10-2023 End: 06-10-2023 Patient encounter procedure Alexei Galvan MD Work Phone: [facility] Comment on above: Neuralgia and neurit is (Primary Dx); Chronic migraine without aura, intractable, with status migrainosus Start: 05-27-2023 Refill Alexei Galvan MD Work Phone: [facility] Comment on above: Chronic migraine wit hout aura, intractable, with status migrainosus Start: 05-24-2023 End: 05-24-2023 ambulatory Laurie Spicer Other [employer] Other Start: 05-24-2023 Telephone encounter Laurie Spicer [facility] Start: 04-06-2023 End: 04-06-2023 ambulatory Laurie Spicer Other [employer] Other Start: 04-06-2023 Telephone encounter Laurie Spicer [facility] Start: 03-02-2023 End: 03-02-2023 ambulatory Laurie Spicer Other [employer] Other Start: 03-02-2023 Telephone encounter Laurie Golden [facility] Start: 02-26-2023 End: 02-26-2023 ambulatory Laurie Spicer Other [employer] Other Start: 02-26-2023 Telephone encounter Laurie Spicer [facility] Start: 02-22-2023 End: 02-22-2023 ambulatory [facility] Start: 02-15-2023 End: 02-15-2023 ambulatory Laurie Spicer Other [employer] Other Start: 02-15-2023 Office outpatient vi sit 15 minutes Laurie Spicer [facility] Start: 01-01-2023 End: 01-01-2023 ambulatory Laurie Spicer Other [employer] Other Start: 01-01-2023 Telephone encounter Laurie Spicer [facility] Start: 12-31-2022 End: 12-31-2022 ambulatory Laurie Spicer Other [employer] Other Start: 12-31-2022 Office outpatient vi sit 15 minutes Laurie Spicer [facility] Start: 11-16-2022 End: 11-16-2022 ambulatory Laurie Spicer Other [employer] Other Start: 11-16-2022 Telephone encounter Laurie Spicer [facility] Start: 09-10-2022 End: 09-10-2022 ambulatory Laurie Spicer Other [employer] Other Start: 09-10-2022 Office outpatient vi sit 15 minutes Laurie Spicer [facility] Start: 09-07-2022 End: 09-07-[address] SELENE RAMIREZ . Facility: Start: 09-03-2022 End: 09-03-2022 ambulatory Laurie Spicer Other [employer] Other Start: 09-03-2022 Telephone encounter Laurie Spicer [facility] Start: 08-31-2022 Office outpatient vi sit 15 minutes Laurie Spicer Work Phone: [facility] 250 DO Work Phone: Start: 08-31-[address] [facility] Facility:1 9836 Start: 08-05-2022 End: 08-05-2022 ambulatory Laurie Spicer Other [employer] [facility] Other Start: 08-05-2022 Telephone encounter Laurie Golden [facility] Start: 06-25-2022 Chart Update Laurie Spicer Work Phone: [facility] 250 DO Work Phone: Start: 06-09-2022 End: 06-09-2022 ambulatory Laurie Golden Other [employer] Other Start: 06-09-2022 Office outpatient vi sit 15 minutes Laurie Spicer [facility] Start: 06-08-2022 End: 06-08-2022 ambulatory Laurie Golden Other [employer] [facility] Other Start: 06-08-2022 Telephone encounter Laurie Golden [facility] Start: 06-01-2022 Patient encounter procedure [facility] Work Phone: Start: 06-01-2022 ambulatory Marissa Iglesias Facility:1 [id number] Start: 05-21-2022 Chart Update [facility] Spicer [facility] Work Phone: Start: 05-20-2022 ambulatory Jaquelin Christie Faci lity:[id number] Start: 05-20-2022 End: 05-20-2022 ambulatory Laurie Spicer Facility:[facility] Start: 05-20-2022 End: 05-20-2022 ambulatory MD Jaquelin Christie Work Phone: [facility] Work Phone: Start: 05-20-2022 End: 05-20-2022 Patient encounter procedure MD Jaquelin Christie Work Phone: [facility] Work Phone: Start: 05-05-2022 End: 05-06-[address] DOCTOR WEBER Facility: Start: 04-20-2022 Office consultation new/estab patient 60 min Laurie Spicer Work Phone: [facility] 250 DO Work Phone: Start: 04-20-2022 Patient encounter [facility] Work Phone: Start: 04-20-[address] Laurie Spicer Facility: Start: 03-13-2022 ambulatory Marissa Iglesias Facility:[facility] Start: 01-22-2022 End: 01-22-2022 ambulatory KYLE WATSON Facility:[facility] Start: 11-06-2021 ambulatory Alyson Galaviz RN [facility] Start: 11-06-2021 Patient encounter procedure Alyson Galaviz RN NURSE HOTEL YARDPERSON Comment on above: Referral Request Start: 10-16-2020 End: 10-17-2020 ambulatory Roderick THOMPSON Facility:[facility] Procedures Date Procedure Procedure Detail Performing Clinician Start: 06-10-2023 Adult depression scr eening assessment Alexei Galvan MD Work Phone: Start: 03-04-2023 Adult depression scr eening assessment Alexei Galvan MD Work Phone: Ligation of fallopian tube M purvi Spicer Work Phone: Operative procedure on knee Laurie Spicer Work Phone: Tonsillectomy Laurie Spicer Work Phone: Plan of Treatment Date Care Activity Detail Author Start: 06-10-2024 Adult BMI Screening Adult BMI Screening [facility] Start: 06-10-2024 Depression Screening Depression Screening [facility] Start: 06-10-2024 Tobacco Screening Tobacco Screening [facility] Start: 03-04-2024 Adult BMI Screening Adult BMI Screening [facility] Start: 03-04-2024 Depression Screening Depression Screening [facility] Start: 03-04-2024 Tobacco Screening Tobacco Screening [facility] Start: 09-13-2023 End: 09-13-2023 Patient encounter procedure 09/13/2023 12:45 PM EDT Procedure visit [facility] [address] [place] [phone] Alexei Galvan MD [address] [place] [address], [address] [place] [address] [facility] Start: 06-10-2023 End: 06-10-2023 Patient encounter procedure 06/10/2023 12:00 PM EST Procedure visit [facility] [address] [place] [phone] Alexei Galvan MD [address] [place] [address], [address] [place] [address] [facility] Start: 04-14-2023 DTaP,Tdap and Td Vaccines (2 - Tdap) DTaP,Tdap and Td Vaccines (2 - Tdap) [facility] Start: 02-22-2023 FUV, Provider: Marissa Iglesias, Status: Pen, Time: 9:15 AM FUV, Provider: Marissa Iglesias, Status: Pen, Time: 9:15 AM [facility] 250 DO Work Phone: Start: 01-01-2023 COVID-19 Vaccine ( season) COVID-19 Vaccine ( season) [facility] Start: 01-01-2023 Influenza vaccination Influenza Vaccine [facility] Start: 08-31-2022 FUV, Provider: Marissa Iglesias, Status: Pen, Time: 9:15 AM FUV, Provider: Marissa Iglesias, Status: Pen, Time: 9:15 AM [facility] 250 DO Work Phone: Start: 06-30-2022 Adult BMI Follow Up Plan Adult BMI Follow Up Plan [facility] Start: 06-01-2022 FUV, Provider: Marissa Iglesias, Status: Pen, Time: 10:30 AM FUV, Provider: Marissa Iglesias, Status: Pen, Time: 10:30 AM [facility] 250 DO Work Phone: Start: 05-28-2022 SURGNONUH, Provider: Marissa Iglesias, Status: Pen, Time: 9:00 AM [facility], Provider: Marissa Iglesias, Status: Pen, Time: 9:00 AM [facility] 250 DO Work Phone: Start: 01-01-2022 Influenza vaccination INFLUENZA (#1) [facility] Start: 2016 Administration of varicella zoster vaccine Zoster (Shingles) Vaccine (1 of 2) [facility] Start: 2016 SHINGRIX VACCINE (1 of 2) SHINGRIX VACCINE (1 of 2) [facility] Start: 11-05-2011 COLOGUARD (FIT-DNA) COLOGUARD (FIT-DNA) [facility] Start: 11-05-2011 Colonoscopy COLONOSCOPY [facility] Start: 11-05-2011 COLORECTAL CANCER SCREENING COLORECTAL CANCER SCREENING [facility] Start: 11-05-[address] COLONOGRAPHY [facility] Start: 11-05-2011 DIABETES SCREEN DIABETES SCREEN [facility] Start: 11-05-2011 FECAL OCCULT BLOOD FECAL OCCULT BLOOD [facility] Start: 11-05-2011 LIPID SCREEN LIPID SCREEN [facility] Start: 11-05-2011 SIGMOIDOSCOPY SIGMOIDOSCOPY [facility] Start: 2006 Mammography MAMMOGRAM [facility] Start: 1996 HPV TESTING HPV TESTING [facility] Start: 11-05-1987 PAP TESTING PAP TESTING [facility] Start: 11-05-1987 Screening for malignant neoplasm of cervix Pap Smear [facility] Start: 1985 Urine microalbumin profile DTAP,TDAP,TD (1 - Tdap) [facility] Start: 1984 HEPATITIS C SCREENING HEPATITIS C SCREENING [facility] Start: 1984 HIV SCREENING HIV SCREENING [facility] Start: 1978 Adult depression screening assessment DEPRESSION SCREENING [facility] Start: 05-07-1967 COVID-19 VACCINE (#1) COVID-19 VACCINE (#1) [facility] Start: 1966 Tobacco Counseling [facility] Immunizations Immunization Date Immunization Notes Care Provider Deuce vee 02-28-2021 Pfizer-BioNTech COVI D-19 Vacc 30 MCG/0.3ML Intramuscular Suspension Laurie E Spicer Work Phone: [facility] 250 DO Work Phone: 08-05-2020 Pfizer-BioNTech COVI D-19 Vacc 30 MCG/0.3ML Intramuscular Suspension Laurie E Spicer Work Phone: [facility] 250 DO Work Phone: 07-14-2020 Pfizer-BioNTech COVI D-19 Vacc 30 MCG/0.3ML Intramuscular Suspension Laurie E Spicer Work Phone: [facility] 250 DO Work Phone: 04-14-2013 diphtheria, tetanus toxoids and acellular pertussis vaccine Laurie E Spicer Work Phone: [facility] 250 DO Work Phone: Payers Date Payer Category Payer Medicaid [employer] O [id number] 2022-Present [phone] [address] [place] [address] [id number] 2022 Unknown [id number] 2022 Self-pay 2015 Private Health Insurance [employer] A ETNA ASA GENERIC [id number] 2015-Present [phone] [place] [address] PPO [id number] 1966 Unknown [id number] [id number]. 356 1966 Unknown [id number] [id number]. 356 1966 Unknown [id number] [id number]. 356 1966 Unknown [id number] [id number]. 356 1966 Unknown [id number] [id number]. 593 1966 Unknown [id number] [id number]. 593 1966 Unknown [id number] [id number]. 727 1966 Unknown [id number] [id number]. 1286 1966 Unknown [id number] 2.16.840.1.583734.3.579.2. 1286 1966 Unknown [id number] [id number]. 1244 1966 Unknown [id number]. 1244 1959 Private Health Insurance [id number] 1959 Unknown [id number] Unknown [id number] Unknown Unknown [id number]. 531 Social History Date Type Detail Facility Start: 11-13-2015 End: 08-24-2022 Tobacco smoking status WAIS Smokes tobacco daily [facility] Work Phone: History of tobacco use Cigarette Smoker C [facility] Work Phone: Start: 11-13-2015 End: 06-10-2023 Cigarettes smoked current (pack per day) - Reported 1 [facility] Start: 01-09-2016 Alcohol intake Current non-dr metal cut off saw tender of alcohol (finding) [facility] Start: 1965 Sex Assigned At Not on file [facility] Start: 1965 Sex Assigned At Female F [facility] Start: 03-04-2023 End: 06-10-2023 Sex Assigned At [facility] Other Start: 08-24-2022 Tobacco use and exposure Smokeless tobacco non-user [facility] Start: 03-04-2023 End: 06-10-2023 Alcohol intake Ex-drinker (finding) [employer] stem Adolescent depressio n screening assessment 0 [facility] Procedure Code Equipment Code Equipment Origin al Text Equipment Identifier Dates [id number], [id number] Star t: 12-14-2022 Clinical Notes 11-06-2021 to 06-22-2023 Telephone Encounter - Diane Webb CNA - 06/22/2023 4:06 PM ESTTelephone Encounter - Diane Webb CNA - 06/22/2023 4:06 PM EST Note Date & Type Note Facility 06-22-2023 Miscellaneous Notes Formattin g of this note might be different from the original. 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 Place ice or a cool, wet towel on the sores 3 times a day for 20 minute incriments. It may help to reduce redness and swelling. If you are just getting a cold sore, try [id number] Abreva cream to reduce symptoms. Do not kiss or engage in sexual activity with another person during a current outbreak. Do not share silverware, towels or toothbrushs. Discussed we may need to prescribe a suppressive treatment that she would take daily she these continue to occur despite treamtment. Pt verbalizes understanding and agrees to plan of care. Jun, Blister (ICD-10 - T14.8XXA) see above. [employer] Other 02-08-2024 History of Present illness Narrative* Alexei Galvan MD - 06/10/2023 12:00 PM EST Chief Complaint Patient presents with Procedure Current Outpatient Medications on File Prior to Visit Medication Sig Dispense Refill aspirin 81 mg Take 1 tablet (81 mg total) by mouth in the morning. atorvastatin (LIPITOR) 40 mg tablet Take 1 tablet (40 mg total) by mouth nightly. busPIRone (BUSPAR) 10 mg tablet Take 1 tablet (10 mg total) by mouth in the morning and 1 tablet (10 mg total) before bedtime. calcium carbonate/vitamin D3 (CALCIUM WITH VITAMIN D ORAL) Take by mouth. cyclobenzaprine (FLEXERIL) 10 mg tablet Take 1 tablet (10 mg total) by mouth nightly. docusate sodium (STOOL SOFTENER ORAL) Take by mouth 2 (two) times a day. erenumab-aooe (AIMOVIG AUTOINJECTOR) 70 mg/mL auto-injector INJECT 70MG SUBCUTANEOUSLY EVERY 28 DAYS 1 mL 3 ibuprofen (MOTRIN) 800 mg tablet Take 1 tablet (800 mg total) by mouth as needed. lancets 33 gauge [facility] USE TO TEST BLOOD SUGAR DAILY loratadine (CLARITIN) 10 mg tablet Take 1 tablet (10 mg total) by mouth in the morning. magnesium oxide (MAGOX) 400 mg tablet Take 1 tablet (400 mg total) by mouth in the morning and 1 tablet (400 mg total) before bedtime. t. meclizine (ANTIVERT) 25 mg tablet Take 1 tablet (25 mg total) by mouth 3 (three) times a day as needed for dizziness. midodrine (PROAMATINE) 5 mg tablet Take 2 tablets (10 mg total) by mouth 3 (three) times a day. Takes 10MG in am and 10 mg at noon and 5mg in the PM multivitamin capsule Take 1 capsule by mouth in the morning. pantoprazole (PROTONIX) 40 mg EC tablet Take 1 tablet (40 mg total) by mouth in the morning. POTASSIUM ORAL Take 40 mEq by mouth. daily TRUE METRIX GLUCOSE TEST STRIP strip USE 1 DAILY TO TEST BLOOD SUGAR varenicline tartrate (VARENICLINE ORAL) Take 5 mg by mouth once daily. Take with full glass of water. venlafaxine XR (EFFEXOR-XR) 75 mg 24 hr capsule Take 1 capsule (75 mg total) by mouth in the morning. triamterene-hydroCHLOROthiazid (MAXZIDE-25) 37.5-25 mg per tablet Take 1 tablet by mouth in the morning. (Patient not taking: Reported on 11/30/2022) No current facility-administered medications on file prior to visit. Allergies Allergen Reactions Demerol [Meperidine] Meperidine (Pf) Itching dizzy Vitals: 06/10/23 1200 BP: 120/69 Pulse: 78 PROCEDURE: Elias Heller is a 57 y.o. female presenting for nerve blocks in the bilateral greater occipital and bilateral auriculotemporal regions. All risks and benefits of the procedure were discussed with the patient and all questions were answered. A time-out was performed and the patient identifies werechecked. Consent was obtained. The patient was initially injected with 0.5% bupivacaine using a 27 gauge needle into the sites above. This was followed with a mixed solution of kenalog and bupivacaine with approximately 5mg of kenalog being used in each site. A 27 gauge needle was used. The patienttolerated the procedure well and may return in 3 months for further injections. Kenalog [facility] [id number] Lot [id number] Exp 12/2023 Bupivacaine [facility] [id number] Lot [id number] Exp 09/01/2023 1. Neuralgia and neuritis - bupivacaine PF (MARCAINE) 0.5 % (5 mg/mL) injection 20 mg - triamcinolone acetonide (KENALOG-40) injection 20 mg 2. Chronic migraine without aura, intractable, with status migrainosus - bupivacaine PF (MARCAINE) 0.5 % (5 mg/mL) injection 20 mg - triamcinolone acetonide (KENALOG-40) injection 20 mg PLAN: [facility]* Encounter Date Diagnosis Assessment Notes Treatment Notes Treatment Clinical Notes Jan, Eczema, dyshidrotic (ICD-10 - L30.1) Discussed diagnosis with pt. Rx cream as directed for spot treatment and flare ups. Discussed need for chronic treatment with moisturizer. Recommended aquaphor, vasaline, or cerave lotion. F/u with derm for any persistent, changing, or worsening sx. Pt understood and agreed to tx plan. [employer] Other 08-31-2023 Evaluation note* Encounter Date Diagnosis Assessment Notes Treatment Notes Treatment Clinical Notes Dec, Acute pain of right knee (ICD-10 - M25.561) Will use prednisone for acute anti-inflammatory results. Advised to elevate leg and check xray today to r/o fracture. Dec, Right leg pain (ICD-10 - M79.604) Will check US to r/o DVT. Pt expresses understanding. [employer] Other 05-11-2023 Evaluation note* Encounter Date Diagnosis Assessment Notes Treatment Notes Treatment Clinical Notes August, Essential tremor (ICD-10 - G25.0) Resolved - will review symptoms w her Neurologist next week. August, Anxiety (ICD-10 - F41.9) chronic and controlled on present meds August, Meniere's disease, unspecified laterality (ICD-10 - H81.09) chronic and unchanged. [employer] Other 05-01-2023 History of Present illness Narrative* Elias presents for follow-up as suggested. * She got a new puppy, the puppy wakes up at 5:30 in the morning, and for days earlier. She has had to rearrange the timing of her ProAmatine because of bouts of dizziness that happens when the effectsof ProAmatine are over. * Tolerating current dose without difficulty * Tolerating current dose of atorvastatin. The Maxide was prescribed for M ni re's disease, and she ran out of it, and is currently not on it at the same time she is taking potassium supplementation which was prescribed by me. I told her that when she is not taking her diuretic, if she continues with potassium there is a possibility that the potassium levels may rise too much. * On physical examination she does have evidence of xanthelasma, and says that multiple family members have similar findings, and there is family history of premature coronary artery disease. 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 * Orthostatics were checked and she is not orthostatic and her blood pressure is at target. * Briefly discussed the rationale for the ProAmatine, the dosing of ProAmatine, the fact that the frequency can be increased to 4 times a day, that the reason we avoid ProAmatine close to bedtime is toavoid supine hypertension. * History so far : * 1. Nicotine addiction and COPD * 2. Arcus senilis * 3. Family history of premature coronary artery disease * 4. M ni re's disease for which she is on triamterene hydrochlorothiazide * 5. Postural dizziness and presyncope * 6. Palpitations * 7. GERD on prophylaxis * 8. Perfusion imaging study August 2021 without reversible ischemia, preserved LV ejection fraction * 9. Iatrogenic hypokalemia * 10. Normal NT proBNP level 49 * 11. Kidney disease stage III 8 * 12. Poor R wave progression on EKG significance unclear, most likely body habitus * 13. Tilt table test 05/20/2022-patient received 250 cc of fluid prior to the test, after sublingual nitroglycerin, within 6 minutes patient developed symptoms of feeling hot diaphoretic, associated with significant drop in blood pressure and heart rate consistent with classic neurocardiogenic syncope. She was placed in the supine position with improvement of symptoms. * 14. Hyperlipidemia based on recent blood work which is as detailed below * Laboratory data from 05/05/2022 on current medical therapy shows normal potassium level of 4.3, she was previously hypokalemic. GFR is greater than 60 sodium 143 total cholesterol 226 HDL 62 triglycerides 103 and LDL 143. * Recommendations: * 1. Comprehensive profile and lipid profile in the near future, may discontinue potassium based on levels in the absence of Maxide. * 2. Follow-up in January 2023, repeat comprehensive profile and lipid profile prior to the next visit as well. LDL goal is 70 or below. -[facility] [employer] 250 DO Work Phone: [phone] 324-442702-07-2023 Evaluation note* Encounter Date Diagnosis Assessment Notes Treatment Notes Treatment Clinical Notes Jun, Orthostatic dizziness (ICD-10 - R42) Prescribed by her solar energy installation manager; needs it sent to a different pharmacy. Followup with Dr. Iglesias. She is instructed to increase hydration, salt, and exercise as able. Jun, Anxiety (ICD-10 - F41.9) Pt requests to increase her dose as her situational and medical problems have increased her anxiety Jun, Smoker (ICD-10 - F17.200) Discussed modalities to help quit smoking [employer] Other 12-19-2022 History of Present illness Narrative* Patient was most recently seen 04/20/2022, and reports for follow-up after tilt table test. * History so far : * 1. Nicotine addiction and COPD * 2. Arcus senilis * 3. Family history of premature coronary artery disease * 4. M ni re's disease for which she is on triamterene hydrochlorothiazide * 5. Postural dizziness and presyncope * 6. Palpitations * 7. GERD on prophylaxis * 8. Perfusion imaging study August 2021 without reversible ischemia, preserved LV ejection fraction * 9. Iatrogenic hypokalemia * 10. Normal NT proBNP level 49 * 11. Kidney disease stage III 8 * 12. Poor R wave progression on EKG significance unclear, most likely body habitus * 13. Tilt table test 05/20/2022-patient received 250 cc of fluid prior to the test, after sublingual nitroglycerin, within 6 minutes patient developed symptoms of feeling hot diaphoretic, associated with significant drop in blood pressure and heart rate consistent with classic neurocardiogenic syncope. She was placed in the supine position with improvement of symptoms. * Laboratory data from 05/05/2022 on current medical therapy shows normal potassium level of 4.3, she was previously hypokalemic. GFR is greater than 60 sodium 143 total cholesterol 226 HDL 62 triglycerides 103 and LDL 143. -[facility] [employer] 250 DO Work Phone: [phone] 629-261409-22-2022 NoteHNO ID: [id number] Author: Kyle Watson MD Service: ? Author Type: Physician Type: Progress Notes Filed: 01/22/2022 1:50 PM Note Text: INITIAL CONSULT - [facility]IC[facility] SERVICE DATE: January 22, 2022 Location: [facility] Participants: patient, adult daughter and provider Requesting Provider: Recommendations of care will be communicated by shared medical record. Member Name Role and Specialty Contact Info Address Comments Laurie Spicer MD Referring [address] [id number] - Subjective HPI: Elias Heller is a 56 year old female with a chief complaint of migraines. She says that she she has a neurologist and she believes that her neurologist is doing a good job, she is here because her and her PCP do not think so. She also mentions she has Meniere's disease, her tinnitus is distracting. Meniere's diet is challenging. Also she mentions positional lightheadedness and near syncope. Chart review: Dr. Alexei Galvan MD, 01/19/2022. See note for description of her migraines and medications trials. Current Outpatient Medications Medication Sig topiramate (TOPAMAX) 50 mg tablet Take 1/2 tablet daily x 1 week then increase to 1 tablet daily busPIRone (BUSPAR) 10 mg tablet Take 10 mg by mouth twice daily. cyclobenzaprine (FLEXERIL) 10 mg tablet Take 10 mg by mouth daily at bedtime. AIMOVIG AUTOINJECTOR 70 mg/mL auto-injector meclizine (ANTIVERT) 25 mg tab Take 25 mg by mouth. Multivitamin capsule Take 1 capsule by mouth every morning. pantoprazole DR (PROTONIX) 40 mg tablet Take 40 mg by mouth once daily. triamterene-hydroCHLOROthiazide (DYAZIDE) 37.5-25 mg per capsule TAKE 1 CAPSULE BY MOUTH EVERY DAY IN THE MORNING venlafaxine ER (EFFEXOR XR) 75 mg 24 hr capsule Take 75 mg by mouth once daily. aspirin, enteric coated (ASPIRIN, ENTERIC COATED) 81 mg EC tablet Take 81 mg by mouth once daily. loratadine (CLARITIN) 10 mg tablet Take 10 mg by mouth once daily. ibuprofen (MOTRIN) 200 mg tablet Take 200 mg by mouth every 6 hours as needed. No current facility-administered medications for this visit. PAST MEDICAL HISTORY Diagnosis Date Asthma Diverticular disease Dizziness Migraine Neck pain Postural hypotension Smoker PAST SURGICAL HISTORY Procedure Laterality Date KNEE ARTHROSCOP MENISCUS REPAIR MED/LAT TONSILLECTOMY HX TUBAL LIGATION HX Social History Tobacco Use Smoking status: Every Day Packs/day: 1.00 Years: 30.00 Pack years: 30.00 Types: Cigarettes Substance Use Topics Alcohol use: No Drug use: No FAMILY HISTORY Problem Relation Age of Onset Hypertension Father Stroke Paternal Grandfather Heart Failure Paternal Grandfather Heart Failure Father Arthritis Paternal Grandmother ALLERGIES Allergen Reactions Demerol [Meperidine* GI Upset dizzy Objective REVIEW OF SYSTEMS: GENERAL: no fevers or irritability. HEENT: no nose bleeds or other nasal problems. NECK: Negative for stiffness, lumps or significant neck swelling RESPIRATORY: Negative for cough, wheezing or respiratory distress. CARDIOVASCULAR: See HPI GI: Negative for abdominal discomfort, blood in stools or black stools or change in bowel habits : No history of dysuria, frequency or incontinence MUSCULOSKELETAL: Negative for joint pain or swelling, back pain or muscle pain. SKIN: Negative for lesions, rash, and itching. NEURO: See HPI PHYSICAL EXAM: BP 100/71 Pulse 67 Ht 160 cm (5' 3 ) Wt 83.9 kg (185 lb) LMP 01/02/2016 SpO2 100% BMI 32.77 kg/m? Mental Status: alert, oriented to person, place and time and follows commands. Funduscopic exam: no papilledema, flat disc Cranial Nerves: CNII: visual zaidi full to confrontation CNIII, IV, : Pupils equal, round and reactive to light, full extraocular movements without nystagmus CN V: Facial sensation intact bilaterally to fine touch CN VII: Facial muscles symmetric and strong CN VIII: Hears finger rub well bilaterally CN IX: Gag Reflex Intact CN X: Palate elevates symmetrically CN XI: Full strength shoulder shrug bilaterally CN XII: Tongue protrusion full and midline Motor Exam: Tone is normal throughout, normal bulk, no muscle atrophy. 5/5 strength throughout, no drift in upper and lower extremities. Reflexes: symmetric bilaterally Sensation: Intact to light touch in upper and lower extremities. Coordination: finger-to- nose intact bilaterally. Gait: Patient's gait is normal. Impression/Recommendations -Positional symptoms. She carries a diagnosis of postural hypotension. Says her PCP has been giving her a few treatments without much success. I suggested more aggressive management and if no response then a tilt table test with her local solar energy installation manager. -Episodic migraine without aura. Reviewing her neurologist notes, I believe her management is a (more content not included)...[facility] 11-06-2021 Miscellaneous Notes* Telephone Encounter - Alyson Galaviz RN - 11/06/2021 9:00 AM EDT Patient calling with request for physician referral: Patient referred to Neurological Department. .Patient denies any new or worsening symptoms of which a provider is not aware: Yes. Patient's PCP is referring her to [facility] for severe headaches. Conferenced to the Appointment Center for scheduling. GO TO THE EMERGENCY ROOM OR CALL 911 IF: * You develop any new symptoms * Your condition worsens * You are concerned or anxious about your condition for any other reason. If you have any questions, you can call Nurse instructional media services technician back. documented in this encounterUniversity [facility]als [facility] SystemEvaluation noteNo assessment information [facility] Work Phone: Evaluation noteNo InformationN[facility]ark[facility] Other Evaluation note* Diagnosis Chronic migraine without aura, intractable, with status migrainosus [facility] Diagnosis Neuralgia and neuritis- Primary Chronic migraine without aura, intractable, with status migrainosus documented in this encounter [facility] Narrative - Reported* Type Description Date Medical History menieres disease Medical History sinusitis Medical History chronic depression Medical History anxiety Medical History migraine headache Medical History Osteoarthritis-neck Medical History diverticulitis Medical History raynauds syndrome Medical History acid reflux Medical History hernia Medical History vertigo Medical History asthma Surgical History arthroscopic knee surgery- left knee Surgical History tubal ligation Surgical History tonsillectomy Hospitalization History No Hospitalization histo ry information [place] [facility] Other History general Narrative - Reported* Type Description Date Medical History menieres disease Medical History sinusitis Medical History chronic depression Medical History anxiety Medical History migraine headache Medical History Osteoarthritis-neck Medical History diverticulitis Medical History raynauds syndrome Medical History acid reflux Medical History hernia Medical History vertigo Medical History asthma Surgical History arthroscopic knee surgery- left knee Surgical History tubal ligation Surgical History tonsillectomy Hospitalization History SEE SURGICAL HX [place] [facility] Other InstructionsNot on filedocumented in this encounter [facility] [employer] SystemInstructions* Attachments The following attachments cannot be sent through Care Everywhere. * Migraines in adults (Amharic) [facility] [employer] SystemInstructionsNot on file documented in [facility] Summary Purpose Family History No Family History Records FoundUnknown Family Member Name Dates Details Family history of myocardial infarction: Father, Brother(V17.3, Z82.49) Status:Active Unknown Family Member Name Dates Details Family history of myocardial infarction: Father, Brother(V17.3, Z82.49) Status:Active Unknown Family Member Name Dates Details Family history of myocardial infarction: Father, Brother(V17.3, Z82.49) Status:Active Unknown Family Member Name Dates Details Family history of myocardial infarction: Father, Brother(V17.3, Z82.49) Status:Active Unknown Family Member Name Dates Details Family history of myocardial infarction: Father, Brother(V17.3, Z82.49) Status:Active Unknown Family Member Name Dates Details Family history of myocardial infarction: Father, Brother(V17.3, Z82.49) Status:Active Unknown Family Member Name Dates Details Family history of myocardial infarction: Father, Brother(V17.3, Z82.49) Status:Active Advance Directives No Advanced Directives Records Found Advance Directive Response Recorded Date/ Time Advance Directives No May 20, 2022 10:03am Chief Complaint and Reason for Visit Chief Complaint Syncope Chief Complaint ELIAS HELLER is being seen for tilt resutls.ELIAS HELLER is being seen for a 3 month follow-up of. Additional Source Comments Source Comments (unrecognize d section and content) In the event this informatio n is protected by the Federal Confidentiality of Alcohol and Drug Abuse Patient Records regulations: The Federal rules restrict any use of the information to criminally investigate or prosecute any alcohol or drug abuse patient.[facility] Reason for Visit (unrecogniz ed section and content) Reason Comments Referral Request Reason Comments Med Refill Reason Comments Procedure Care Teams (unrecognized sec tion and content) Singing Telegram Performer Relationship Specialty Start Date End Date Laurie Spicer MD [address] [place] [phone] PCP - General Family Practice 10/17/15 Team Status: Inactive Member Role Status Dates Marissa Iglesias MD Attending Provider Active Jaquelin Christie MD Referring Provider Active Laurie Spicer MD Primary Care Provider Active Team Status: Active Member Role Status Dates Laurie Spicer MD Primary Care Provider Active Singing Telegram Performer Relationship Specialty Start Date End Date Laurie Spicer MD [address] [place] [phone] PCP - General Family Medicine 06/30/21 Singing Telegram Performer Relationship Specialty Start Date End Date Laurie Spicer MD [address] [place] [phone] PCP - General Family Medicine 06/30/21 Singing Telegram Performer Relationship Specialty Start Date End Date Laurie Spicer MD [address] [place] [phone] PCP - General Family Medicine 06/30/21 INFORMATION SOURCE (unrecogn ized section and content) DATE CREATED AUTHOR 02/01/2022 [facility] DATE CREATED AUTHOR AUTHOR'S ORGANIZ ATION 06/06/2022 [facility] DATE CREATED AUTHOR AUTHOR'S ORGANIZ ATION 08/31/2022 [facility] DATE CREATED AUTHOR AUTHOR'S ORGANIZ ATION 08/31/2022 [facility] DATE CREATED AUTHOR AUTHOR'S ORGANIZ ATION 09/10/2022 [facility] DATE CREATED AUTHOR AUTHOR'S ORGANIZ ATION 10/09/2022 [facility] DATE CREATED AUTHOR AUTHOR'S ORGANIZ ATION 09/14/2023 [facility] DATE CREATED AUTHOR AUTHOR'S ORGANIZ ATION 10/22/2023 [facility] Goals (unrecognized section and content) Goals may be documented in a n alternate sectionNo InformationNo InformationNo InformationNo InformationNo InformationNo InformationNo InformationNo InformationNo InformationNo InformationNo InformationNo InformationNo InformationNo InformationNot on filedocumented as of this encounterNot on filedocumented as of this encounterNo InformationNot on filedocumented as of this encounterNo Information FOR RECORDS PERTAINING TO PATIENTS WHO ARE OR HAVE BEEN ENROLLED IN A CHEMICAL DEPENDENCY/SUBSTANCEABUSE PROGRAM, SOME INFORMATION MAY BE OMITTED. This clinical summary was aggregated from multiple sources. Caution should be exercised in using it in the provision of clinical care. This summary normalizes information from multiple sources, and as a consequence, information in this document may materially change the coding, format and clinical context of patient data. In addition, data may be omitted in some cases. CLINICAL DECISIONS SHOULD BE BASED ON THE PRIMARY CLINICAL RECORDS. [employer] [facility]. provides no warranty or guarantee of the accuracy or completeness of information in this document.
[2023-11-29] MEDS: 0.9 % SODIUM CHLORIDE 1,000 ML 999 ML IV (13:39)
[2023-11-29] MEDS: KETOROLAC TROMETHAMINE 30 MG/ML VIAL IVP (13:43)
--- NOTE | 2023-11-29 13:44 | ED.GENADUL1 ---
HPI HPI - General Adult General Chief complaint: Abdominal Pain Stated complaint: LEFT SIDE PAIN Time Seen by Provider: 11/29/23 13:19 Source: patient Mode of arrival: walk-in History of Present Illness HPI narrative: Patient is a 58-year-old female who presents to the emergency department for the evaluation of left flank pain. She states she has had intermittent left flank pain for several months. She states she saw her primary care provider in the office several weeks ago for this, no testing was ordered but the patient was told that she would be contacted to set up an ultrasound. She states she never got that phone call and came to the emergency department today when the pain returned 2 days ago. She has had no fevers, vomiting. No abdominal pain or urinary symptoms. She denies any history of kidney issues, kidney stones or infections. No medications taken prior to arrival. Related Data Previous Rx's ?Medication ?Instructions ?Recorded ketorolac 10 mg tablet 10 mg PO TID PRN pain #10 tabs 11/29/23 Allergies Allergy/AdvReac Type Severity Reaction Status Date / Time meperidine [From Demerol] Allergy Mild Verified 09/09/23 19:55 Opioid HPI Opioid Management Most Recent Opioid Data: Last Pain Scale 9 11/29/23 13:43 Last MAR Pain Assessment 11/29/23 13:43 Review of Systems ROS Constitutional Denies: fever or chills Ears, nose, mouth, and throat Denies: throat pain or nasal congestion Cardiovascular Denies: chest pain Respiratory Denies: shortness of breath Gastrointestinal Denies: abdominal pain, nausea or vomiting Genitourinary Denies: painful urination Musculoskeletal Reports: back pain; Denies: neck pain Integumentary/Breast Denies: rash Neurological Denies: headache Hematologic/Lymphatic Denies: easy bruising or easy bleeding Exam Narrative Exam Narrative: Gen.: Awake, alert, in no distress Head: Normocephalic, atraumatic ENT: Moist mucous membranes Respiratory: No respiratory distress Gastrointestinal: Abdomen is soft, nondistended and nontender to palpation Back: Mild tenderness of the left flank with no CVA tenderness Extremities: Moves extremities equally Psych: Normal mood and affect Neuro: No focal neuro deficit Skin: Warm, dry, intact Constitutional Vital Signs, click to edit/add: Last Vital Signs Temp 98.2 F 11/29/23 13:14 Pulse 71 11/29/23 14:15 Resp 16 11/29/23 14:15 BP 135/81 11/29/23 14:15 Pulse Ox 99 11/29/23 14:15 O2 Del Method Room Air 11/29/23 14:15 Course Vital Signs Vital signs: Vital Signs Temperature 98.2 F 11/29/23 13:14 Pulse Rate 88 11/29/23 13:14 Respiratory Rate 16 11/29/23 13:14 Blood Pressure 122/97 H 11/29/23 13:14 Pulse Oximetry 98 11/29/23 13:14 Oxygen Delivery Method Room Air 11/29/23 13:14 Temperature 98.2 F 11/29/23 13:14 Pulse Rate 71 11/29/23 14:15 Respiratory Rate 16 11/29/23 14:15 Blood Pressure 135/81 11/29/23 14:15 Pulse Oximetry 99 11/29/23 14:15 Oxygen Delivery Method Room Air 11/29/23 14:15 Medical Decision Making MDM Narrative Medical decision making narrative: Patient treated with IV Toradol with improvement. Laboratory studies reviewed and noted within normal limits. Kidney function is normal. CT of the abdomen and pelvis with no evidence of acute process. Patient discharged home with symptomatic treatment to follow-up with her PCP. Return to the ER if symptoms change or worsen. SUPERVISED APC VISIT, PHYSICIAN ATTESTATION: Based on the medical record the care appears appropriate. ? Medical Records Medical records reviewed: Yes I reviewed the patient's medical records Lab Data Lab results reviewed: Yes I reviewed the patient's lab results Labs: Lab Results 11/29/23 11/29/23 Range/Units 13:21 13:38 WBC 9.3 (4.0-11.0) 10^3/uL RBC 4.98 (4.20-5.40) 10^6/uL Hgb 12.9 (12.0-16.0) g/dL Hct 39.7 (36.0-48.0) % MCV 79.7 L (81.0-99.0) fL MCH 25.9 L (26.7-34.0) pg MCHC 32.5 (29.9-35.2) g/dL RDW 15.8 H (11.0-15.0) % Plt Count 417 (150-450) 10^3/uL MPV 9.8 (9.5-13.5) fL Neut % (Auto) 59.5 (43.0-75.0) % Lymph % (Auto) 29.8 (20.5-60.0) % [place] % (Auto) 7.6 (1.7-12.0) % Eos % (Auto) 2.5 (0.9-7.0) % Baso % (Auto) 0.3 (0.2-2.0) % Neut # (Auto) 5.5 (1.4-6.5) 10^3/uL Lymph # (Auto) 2.8 (1.2-3.8) 10^3/uL [place]ne # (Auto) 0.7 (0.3-0.8) 10^3/uL Eos # (Auto) 0.2 (0.0-0.7) 10^3/uL Baso # (Auto) 0.0 (0.0-0.1) 10^3/uL Abs Immat Gran (auto) 0.03 (0.00-0.03) 10^3/uL Imm/Tot Granulo (auto) 0.3 (0.0-0.5) % Sodium 138 (136-145) mmol/L Potassium 4.5 (3.5-5.1) mmol/L Chloride 102 (98-107) mmol/L Carbon Dioxide 28.3 (21.0-32.0) mmol/L Anion Gap 12.2 BUN 16.0 (7.0-18.0) mg/dL Creatinine 0.84 (0.55-1.02) mg/dL Est GFR ( Amer) >60 (>=60) Est GFR (Non-Af Amer) >60 (>=60) BUN/Creatinine Ratio 19.0 Glucose 91 (74-106) mg/dL Lactate 0.9 (0.4-2.0) mmol/L Calcium 9.1 (8.5-10.1) mg/dL Total Bilirubin 0.4 (0.2-1.0) mg/dL AST 17 (15-37) U/L ALT 34 (14-59) U/L Alkaline Phosphatase 100 (46-116) U/L Total Protein 7.2 (6.4-8.2) g/dL Albumin 3.3 L (3.4-5.0) g/dL Globulin 3.9 g/dL Albumin/Globulin Ratio 0.8 Lipase 17.0 (16.0-77.0) U/L Urine Color Lt. yellow (YELLOW) Urine Clarity Clear (CLEAR) Urine pH 7.5 (5.0-9.0) Ur Specific [place] 1.015 (1.005-1.025) Urine Protein Negative (NEG/TRACE) mg/dL Urine Glucose (UA) Negative (NEGATIVE) mg/dL Urine Ketones Negative (NEGATIVE) mg/dL Urine Occult Blood Negative (NEGATIVE) Urine Nitrite Negative (NEGATIVE) Urine Bilirubin Negative (NEGATIVE) Urine Urobilinogen 0.2 (0.2-1.0) EU/dL Ur Leukocyte Esterase Negative (NEGATIVE) Imaging Data CT scan - abdomen: Attestation: I have reviewed the pertinent imaging results. Radiologist's impression: ITS Impressions Abdomen/Pelvis CT 11/29/23 13:29 IMPRESSION: No acute abnormality lower chest, abdomen or pelvis. No acute left flank abnormality. Electronically authenticated by: CARMEN REEDER Date: 11/29/2023 14:35 Discharge Plan Discharge Stand Alone Forms: Portal Instructions Chief Complaint: Abdominal Pain Clinical Impression: Acute left flank pain Patient Disposition: Home, Self-Care Time of Disposition Decision: 14:39 Condition: Good Prescriptions / Home Meds: New ketorolac 10 mg tablet 10 mg PO TID PRN (Reason: pain) Qty: 10 0RF Print Language: Tristanian Instructions: Flank Pain (ED) Referrals: Laurie Franks MD [Primary Care Provider] - 1 week
[2023-11-29 13:49] LABS: Bilirubin Urine NEGATIVE (NEGATIVE); Blood Urine NEGATIVE (NEGATIVE); Clarity Urine CLEAR (CLEAR); Color Urine LT. YELLOW (YELLOW); Glucose Urine UA NEGATIVE (NEGATIVE); Ketones Urine NEGATIVE (NEGATIVE); Leukocyte Esterase Urine NEGATIVE (NEGATIVE); Nitrite Urine NEGATIVE (NEGATIVE); Protein Urine NEGATIVE (NEG/TRACE); Specific Gravity Urine 1.015 (1.005-1.025); Urobilinogen Urine 0.2 EU/dL (0.2-1.0); pH Urine 7.5 (5.0-9.0)
[2023-11-29 13:51] LABS: Basophils Percent Auto 0.3 % (0.2-2.0); Eosinophils Absolute Auto 0.2 10^3/uL (0.0-0.7); Eosinophils Percent Auto 2.5 % (0.9-7.0); Hematocrit 39.7 % (36.0-48.0); Hemoglobin 12.9 g/dL (12.0-16.0); Immature Granulocytes Abs Auto 0.03 10^3/uL (0.00-0.03); Immature Granulocytes Pct Auto 0.3 % (0.0-0.5); Lymphocytes Absolute Auto 2.8 10^3/uL (1.2-3.8); Lymphocytes Percent Auto 29.8 % (20.5-60.0); Mean Corpuscular HGB Conc 32.5 g/dL (29.9-35.2); Mean Corpuscular Hemoglobin 25.9 pg (26.7-34.0); Mean Corpuscular Volume 79.7 fL (81.0-99.0); Mean Platelet Volume 9.8 fL (9.5-13.5); Monocytes Absolute Auto 0.7 10^3/uL (0.3-0.8); Monocytes Percent Auto 7.6 % (1.7-12.0); Neutrophils Absolute Auto 5.5 10^3/uL (1.4-6.5); Neutrophils Percent Auto 59.5 % (43.0-75.0); Platelet Count 417 10^3/uL (150-450); Red Blood Count 4.98 10^6/uL (4.20-5.40); Red Cell Distribution Width 15.8 % (11.0-15.0); White Blood Count 9.3 10^3/uL (4.0-11.0)
[2023-11-29 13:54] LABS: Urine Microscopic Indicated NO
[2023-11-29 14:13] LABS: Lactate/Lactic Acid 0.9 mmol/L (0.4-2.0)
[2023-11-29 14:15] VITALS: BP 135/81; PULSE 71; O2SAT 99
[2023-11-29 14:19] LABS: Alanine Aminotransferase 34 U/L (14-59); Albumin Globulin Ratio 0.8; Albumin Level 3.3 g/dL (3.4-5.0); Alkaline Phosphatase 100 U/L (46-116); Anion Gap 12.2; Aspartate Amino Transferase 17 U/L (15-37); Bilirubin Total 0.4 mg/dL (0.2-1.0); Calcium 9.1 mg/dL (8.5-10.1); Carbon Dioxide 28.3 mmol/L (21.0-32.0); Chloride 102 mmol/L (98-107); Estimated GFR (African America >60 (>=60); Estimated GFR (Non-African Ame >60 (>=60); Globulin 3.9 g/dL; Glucose 91 mg/dL (74-106); Potassium 4.5 mmol/L (3.5-5.1); Sodium 138 mmol/L (136-145); Total Protein 7.2 g/dL (6.4-8.2)
[2023-11-29 14:54] VITALS: BP 132/79; PULSE 76; O2SAT 97
== END 2023-11-29 14:56 | disposition home or self-care (01) ==
PROVIDERS: Physician Assistant; Emergency Provider Emergency Medicine Emergency Medical Services; PCP Family Medicine
DX: R10.9 Unspecified abdominal pain (principal)
CPT/HCPCS: 36415; 74176; 80053; 81003; 83605; 83690; 85025; 96374; 99285; J1885

== ENCOUNTER 2023-12-02 15:40 | Outpatient (OUT) | payer OTHER, SELFPAY ==
--- NOTE | 2023-12-02 15:44 | XR_ITS ---
The [address] [address] Patient Name: ELIAS HELLER MRN: [id number] date: 1965 Sex: F Assigned Patient Location: [facility] Current Patient Location: Accession/Order Number: [id number] Exam Date: 12/02/2023 15:48 Report Date: 12/03/2023 06:23 At the request of: SHELDON SPICER Procedure: XR lumbar spine 2-3V EXAMINATION: XR lumbar spine 2-3V HISTORY: Chronic Lumbar Radiculopathy M54.16 ; left flank pain which has progressed to left hip numbness COMPARISON: No relevant comparison available. FINDINGS: BONES: No significant spondylosis, scoliosis, fracture, or visible bony lesion. DISC SPACES: No significant disc height narrowing, subluxation, or endplate abnormality. PARASPINOUS: Negative. No paraspinous abnormality is seen. OTHER: Negative. XR/XR lumbar spine 2-3V IMPRESSION: 1. No acute bone abnormality or significant degenerative changes. Electronically authenticated by: CAMILLE ANGELES Date: 12/03/2023 06:23
--- OUTSIDE RECORDS SUMMARY | 2023-12-02 15:55 | XMS_ITS | CCD ---
Author Organization [facility] Care Team Providers Care Steam Power[employer] Supervisor Name Role Phone Laurie Spicer MD Primary Care Provider KYLE WATSON Attending Unavailable LAURIE SPICER Referring Unavailable LAURIE SPICER Primary Care Unavailable Laurie Spicer Unavailable Unavailable Unavailable MD Marissa Iglesias Attending Provider MD Jaquelin Christie Referring Provider MD Laurie Spicer Primary Care Provider Laurie Spicer Primary Care Unavailable Marissa Iglesias Attending Unavailable Marissa Iglesias Admitting Unavailable Jaquelin Christie Referring Unavailable Laurie Spicer Unavailable Marissa Iglesias Attending Unavailable Marissa Iglesias Referring Unavailable Dr. Laurie Spicer Primary Care Dr. Laurie Moe Primary Care Unav ailMarissa Harding Attending Unavailable Marissa Iglesias Referring Unavailable Jaquelin Christie Attending Unavailable Dr. Laurie Spicer Primary Care Unav ailMarissa Harding Attending Unavailable Marissa Iglesias Referring Unavailable Dr. Laurie Spicer Primary Care Unav ayred Fu, DR MORTON Attending Unavailable JAMES ., DR MORTON Consulting Unavailable JAMES ., DR MORTON Admitting Unavailable LAURIE SPICER Primary Care Unavailable MARJAN CHAPA Consulting Unavailab le MISC, DR OCDY Admitting Unavailable LAURIE SPICER Primary Care Unavailable MISC, DR CODY Attending Unavailable MISC, DR CODY Consulting Unavailable Roderick THOMPSON Attending Unavailable Laurie Spicer MD Primary Care Provider [phone] Karlene Wang Unavailable [phone] ALEXEI GALVAN Attending LAURIE Nicole Referring Unavailable [...] (PF)] Drug Allergy 6 GI Upset, Itching [facility] Work Phone: (20 sources) Meperidine; Translations: [Demerol TABS] Drug Allergy 2 [facility] [employer] [facility] (4 sources) Meperidine; Translations: [meperidine] Drug Allergy [address] [facility] (2 sources) Meperidine; Translations: [Demerol] Drug Allergy 5 [facility] Repository Medications Current Medications Medication Drug Class(es) [...] Jun, Active take 2 tablets by mo [facility] three times daily in the evening midodrine [...] for 90 Active take 1 capsule by [facility] every twenty-four hours in the morning [...] start Start: 04-20-2022 take 1 tablet by [facility] twice daily Magnesium 400 MG Oral [...] Translations: [Nausea] Episodic Other aftercare (1 source) half-way (current) use of aspirin; Translations: [HALFWAY CURRENT USE OF ASPIRIN] Onset: 3 Episodic [...] 06-10-2023 03-04-2023 Other aftercare (3 sources) Other care home (current) drug therapy; Translations: [OTH CHECKERER HAND CURRENT DRUG THERAPY] Onset: 09-09-2022 Episodic Other circulatory disease (2 sources) Hypotension, unspecified; Translations: [Hypotension, unspecified] Onset: 01-22-2023 Episodic Unclassified (8 sources) Patient status finding; Translations: [Patient new to provider] Resolved: 06-01-2022 Unclassified (3 sources) Onset: 07-01-2021 07-01-2021 Results Test Name Value Interpretation Reference Range Facility CBC AUTO DIFFon 09-07-2022 BASO # 0.1 103/ul Normal 0.0-0.1 [facility] Comment on above: Performed By: #### C BC #### [facility] [address] [address] [address] Ismael Kenney Basophils/100 WBC (Bld) 0.4 % Normal 0.2-2.0 [facility] Comment on above: Performed By: #### C BC #### [facility] [address] [address] [address] Ismael Kenney EO # 0.2 103/ul Normal 0.0-0.7 [facility] Comment on above: Performed By: #### C BC #### [facility] [address] [address] [address] Ismael Kenney Eosinophils/100 WBC (Bld) 1.5 % Normal 0.9-7.0 [facility] Comment on above: Performed By: #### C BC #### [facility] [address] [address] [address] Ismael Kenney Erythrocyte distribution width (RBC) [Ratio] 15.7 % Critically high 11.0-15.0 [facility] Comment on above: Performed By: #### C BC #### [facility] [address] [address] [address] Ismael Kenney Hematocrit (Bld) [Volume fraction] 43.7 % Normal 36.0-48.0 [facility] Comment on above: Performed By: #### C BC #### [facility] [address] [address] [address] Ismael Kenney Hemoglobin (Bld) [Mass/Vol] 13.9 g/dL Normal 12.0-16.0 [facility] Comment on above: Performed By: #### C BC #### [facility] [address] [address] [address] Ismael Kenney IG # 0.04 10e3/ul Critically high 0.00-0.03 [facility] Comment on above: Performed By: #### C BC #### [facility] [address] [place] [address] Dr. Ismael Kenney IG % 0.3 % Normal 0.0-0.5 [facility] Comment on above: Performed By: #### C BC #### [facility] [address] [place] [address] Dr. Ismael Kenney LYMPH # 3.4 103/ul Normal 1.2-3.8 [facility] Comment on above: Performed By: #### C BC #### [facility] [address] [place] [address] Dr. Ismael Kenney Lymphocytes/100 WBC (Bld) 27.6 % Normal 20.5-60.0 [facility] Comment on above: Performed By: #### C BC #### [facility] [address] [place] [address] Dr. Ismael Kenney MANUAL DIFF REQ NO Normal [facility] Comment on above: Performed By: #### C BC #### [facility] [address] [place] [address] Dr. Ismael Kenney MCH (RBC) [Entitic mass] 25.9 pg Critically low 26.7-34.0 [facility] Comment on above: Performed By: #### C BC #### [facility] [address] [place] [address] Dr. Ismael Kenney MCHC (RBC) [Mass/Vol] 31.8 g/dL Normal 29.9-35.2 [facility] Comment on above: Performed By: #### C BC #### [facility] [address] [place] [address] Dr. Ismael Kenney MCV (RBC) [Entitic vol] 81.4 fL Normal 81.0-99.0 [facility] Comment on above: Performed By: #### C BC #### [facility] [address] [place] [address] Dr. Ismael Kenney MONO # 0.8 103/ul Normal 0.3-0.8 [facility] Comment on above: Performed By: #### C BC #### [facility] [address] [address] [address] Ismael Kenney Monocytes/100 WBC (Bld) 6.4 % Normal 1.7-12.0 [facility] Comment on above: Performed By: #### C BC #### [facility] [address] [place] [address] Dr. Ismael Kenney NEUT # 7.9 103/ul Critically high 1.4-6.5 [facility] Comment on above: Performed By: #### C BC #### [facility] [address] [place] [address] Dr. Ismael Kenney Neutrophils/100 WBC (Bld) 63.8 % Normal 43.0-75.0 [facility] Comment on above: Performed By: #### C BC #### [facility] [address] [place] [address] Dr. Ismael Kenney Platelet mean volume (Bld) [Entitic vol] 10.0 fL Normal 9.5-13.5 [facility] Comment on above: Performed By: #### C BC #### [facility] [address] [place] [address] Dr. Ismael Kenney PLT 402 103/ul Normal 150-450 [facility] Comment on above: Performed By: #### C BC #### [facility] [address] [place] [address] Dr. Ismael Kenney RBC 5.37 106/ul Normal 4.20-5.40 [facility] Comment on above: Performed By: #### C BC #### [facility] [address] [place] [address] Dr. Ismael Kenney WBC 12.4 103/ul Critically high 4.0-11.0 [facility] Comment on above: Performed By: #### C BC #### [facility] [address] [place] [address] Dr. Ismael Kenney MAGNESIUMon 09-07-2022 Magnesium [Mass/Vol] 2.2 mg/dL Normal 1.8-2.4 [facility] Comment on above: Performed By: #### M G #### [facility] [address] [place] [address] Dr. Ismael Kenney POINT OF CARE GLUCOSEon Glucose [Mass/Vol] 85 mg/dL Normal 74-[address] [facility] Comment on above: Performed By: #### P OCGLUC #### [facility] [address] [place] [address] Dr. Ismael Kenney PROF 14(COMP METB)on 023 Albumin [Mass/Vol] 3.6 g/dL Normal 3.4-5.0 [facility] Comment on above: Performed By: #### T SH, CMP, HSTROPN #### [facility] [address] [place] [address] Dr. Ismael Kenney Albumin/Globulin [Mass ratio] 0.9 {ratio} Normal [facility] Comment on above: Performed By: #### T SH, CMP, HSTROPN #### [facility] [address] [place] [address] Dr. Ismael Kenney ALP [Catalytic activity/Vol] 100 U/L Normal 46-116 [facility] Comment on above: Performed By: #### T SH, CMP, HSTROPN #### [facility] [address] [place] [address] Dr. Ismael Kenney ALT [Catalytic activity/Vol] 31 U/L Normal 14-59 [facility] Comment on above: Performed By: #### T SH, CMP, HSTROPN #### [facility] [address] [place] [address] Dr. Ismael Kenney Anion gap [Moles/Vol] 12.1 mmol/L Normal [facility] Comment on above: Performed By: #### T SH, CMP, HSTROPN #### [facility] [address] [place] [address] Dr. Ismael Kenney AST [Catalytic activity/Vol] 23 U/L Normal 15-37 [facility] Comment on above: Performed By: #### T SH, CMP, HSTROPN #### [facility] [address] [place] [address] Dr. Ismael Kenney Bilirubin [Mass/Vol] 0.2 mg/dL Normal 0.2-1.0 [facility] Comment on above: Performed By: #### T SH, CMP, HSTROPN #### [facility] [address] [address] [address] Ismael Kenney Calcium [Mass/Vol] 9.4 mg/dL Normal 8.5-10.1 [facility] Comment on above: Performed By: #### T SH, CMP, HSTROPN #### [facility] [address] [place] [address] Dr. Ismael Kenney Chloride [Moles/Vol] 104 mmol/L Normal 98-107 [facility] Comment on above: Performed By: #### T SH, CMP, HSTROPN #### [facility] [address] [place] [address] Dr. Ismael Kenney CO2 [Moles/Vol] 28.4 mmol/L Normal 21.0-32.0 [facility] Comment on above: Performed By: #### T SH, CMP, HSTROPN #### [facility] [address] [place] [address] Dr. Ismael Kenney Creatinine [Mass/Vol] 1.03 mg/dL Critically high 0.55-1.02 [facility] Comment on above: Performed By: #### T SH, CMP, HSTROPN #### [facility] [address] [place] [address] Dr. Ismael Kenney EGFR-AF ETHIOPIAN >60 Normal >=60 [facility] Comment on above: Performed By: #### T SH, CMP, HSTROPN #### [facility] [address] [place] [address] Dr. Ismael Kenney EGFR-NON AF ETHIOPIAN 56 mL/min/1.73m2 Critically low >=60 [facility] Comment on above: Performed By: #### T SH, CMP, HSTROPN #### [facility] [address] [address] [address] Ismael Kenney Globulin (S) [Mass/Vol] 4.2 g/dL Normal [facility] Comment on above: Performed By: #### T SH, CMP, HSTROPN #### [facility] [address] [address] [address] Ismael Kenney Glucose [Mass/Vol] 76 mg/dL Normal 74-[address] [facility] Comment on above: Performed By: #### T SH, CMP, HSTROPN #### [facility] [address] [address] [address] Ismael Kenney Potassium [Moles/Vol] 4.5 mmol/L Normal 3.5-5.1 [facility] Comment on above: Performed By: #### T SH, CMP, HSTROPN #### [facility] [address] [place] [address] Dr. Ismael Kenney Protein [Mass/Vol] 7.8 g/dL Normal 6.4-8.[address] [facility] Comment on above: Performed By: #### T SH, CMP, HSTROPN #### [facility] [address] [place] [address] Dr. Ismael Kenney Sodium [Moles/Vol] 140 mmol/L Normal 136-[address] [facility] Comment on above: Performed By: #### T SH, CMP, HSTROPN #### [facility] [address] [address] [address] Ismael Kenney Urea nitrogen [Mass/Vol] 21.0 mg/dL Critically high 7.0-18.0 [facility] Comment on above: Performed By: #### T SH, CMP, HSTROPN #### [facility] [address] [place] [address] Dr. Ismael Kenney Urea nitrogen/Creatinin e [Mass ratio] 20.4 mg/mg Normal [facility] Comment on above: Performed By: #### T SH, CMP, HSTROPN #### [facility] [address] [place] [address] Dr. Ismael Kenney PROTIMEon 09-07-2022 INR Coag (PPP) [Relative time] {INR} Normal [facility] Comment on above: Performed By: #### P TT, PT #### [facility] [address] [place] [address] Dr. Ismael Kenney INR GUIDELINES SEE BELOW Normal [facility] Comment on above: Result Comment: BEVERLEY RED INR: 2.0 - 3.0 CONDITIONS NOT LISTED BELOW 2.5 - 3.5 FOR PROSTHETIC HEART VALVE REPLACEMENT 2.5 - 3.5 RECURRENT THROMBOSIS Performed By: #### P TT, PT #### [facility] [address] [place] [address] Dr. Ismael Kenney PT Coag (PPP) [Time] 9.6 s Normal 9.0-11.6 [facility] Comment on above: Performed By: #### P TT, PT #### [facility] [address] [place] [address] Dr. Ismael Kenney PTTon 09-07-2022 aPTT Coag (Bld) [Time] 29.5 s Normal 22.3-36.2 [facility] Comment on above: Performed By: #### P TT, PT #### [facility] [address] [place] [address] Dr. Ismael Kenney TROPONIN, HIGH SENSITIVITYon 09-07-2022 HSTROP 5.6 pg/mL Normal 4.0-51.3 [facility] Comment on above: Result Comment: CUT- OFF POINTS HAVE BEEN ESTABLISHED BASED ON THE FOURTH UNIVERSAL DEFINITIONS OF MYOCARDIAL INFARCTION. THE UPPER REFERENCE LIMIT (URL) OF TROPONIN, DEFINED THE 99TH PERCENTILE OF cTnI DISTRIBUTION IN A REFERENCE POPULATION, HAS BEEN CONFIRMED THE DECISION THRESHOLD FOR [place] DIAGNOSIS. Performed By: #### T SH, CMP, HSTROPN #### [facility] [address] [place] [address] Dr. Ismael Kenney TSHon 09-07-2022 TSH 1.639 uIU/mL Normal 0.358-3.740 [facility] Comment on above: Performed By: #### T SH, CMP, HSTROPN #### [facility] [address] [address] [address] Ismael Kenney Office Visit (Cardiology)on 08-31-2022 [...] we can help. You may also call 7-422-UYCV-NOW for free resources and assistance.; Status:Complete - [...] up in 5 months Chief Complaint ELIAS HELLER is being seen for a 3 [...] with significant (more content not included)... Normal [facility] Tobacco Screening.on 023 Tobacco use status CPHS a) Yes [facility] [employer] 250 DO Work Phone: Tobacco Screening. Yes [facility] 250 DO Work Phone: Office Visit (Cardiology)on [...] we can help. You may also call 3-523-VGVMTheoremNOW for free resources and assistance.; Status:Complete - [...] Tubal liga (more content not included)... Normal [facility] Tobacco Screening.on 023 Adult depression screening assessment No [facility] 250 DO Work Phone: Fall risk assessment a) No falls within the last year [facility] 250 DO Work Phone: Tobacco use status CP a) Yes [facility] 250 DO Work Phone: Tobacco Screening. 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 Iglesias. Transcribed By: TAISHA 05/20/22 1548 Dictated By: Jaquelin Christie MD 05/20/22 1139 Signed By: 05/21/22 0946 [facility] No Panel Informationon 05-20 [facility] Espinosa DO Work Phone: LIPID PROFILEon 05-05-2022 CHOL-HDL RATIO NORM SEE BELOW Normal [facility] Comment on above: Result Comment: 3.3 - 4.4 LOW RISK 4.4 - 7.1 AVERAGE RISK 7.1 - 11.0 MODERATE RISK >11.0 HIGH RISK Performed By: #### L IPID, BMP #### [facility] [address] [address] [address] Ismael Kenney Cholesterol [Mass/Vol] 226 mg/dL Critically high <=200 [facility] Comment on above: Performed By: #### L IPID, BMP #### [facility] [address] [address] [address] Ismael Kenney Cholesterol in HDL [Mass/Vol] 62 mg/dL Critically high 40-60 [facility] Comment on above: Performed By: #### L IPID, BMP #### [facility] [address] [address] [address] Ismael Kenney Cholesterol in LDL [Mass/Vol] 143.4 mg/dL Normal [facility] Comment on above: Performed By: #### L IPID, BMP #### [facility] [address] [address] [address] Ismael Kenney Cholesterol.total/ Cholesterol in HDL [Mass ratio] 3.6 {ratio} Normal [facility] Comment on above: Performed By: #### L IPID, BMP #### [facility] [address] [address] [address] Ismael Kenney HDL NORMAL > or = 60 mg/dl - LO W CARDIOVASCULAR RISK <40 mg/dl - HIGH CARDIOVASCULAR RISK Normal [facility] Comment on above: Performed By: #### L IPID, BMP #### [facility] [address] [address] [address] Ismael Kenney LDL CALC NORMAL SEE BELOW Normal [facility] Comment on above: Result Comment: <100 mg/dl OPTIMAL 100 - 129 mg/dl NEAR OR ABOVE OPTIMAL 130 - 159 mg/dl BORDERLINE HIGH 160 - 189 mg/dl HIGH >190 mg/dl VERY HIGH Performed By: #### L IPID, BMP #### [facility] [address] [address] [address] Ismael Kenney Triglyceride [Mass/Vol] 103 mg/dL Normal <=150 [facility] Comment on above: Performed By: #### L IPID, BMP #### [facility] [address] [address] [address] Ismael Kenney VLDL CALC 20.6 mg/dL Normal [facility] Comment on above: Performed By: #### L IPID, BMP #### [facility] [address] [address] [address] Ismael Kenney PROF CHEM 8 (BAS METB)on Anion gap [Moles/Vol] 11.2 mmol/L Normal [facility] Comment on above: Performed By: #### L IPID, BMP #### [facility] [address] [place] [address] Dr. Ismael Kenney Calcium [Mass/Vol] 9.0 mg/dL Normal 8.5-10.1 [facility] Comment on above: Performed By: #### L IPID, BMP #### [facility] [address] [address] [address] Ismael Kenney Chloride [Moles/Vol] 105 mmol/L Normal 98-107 [facility] Comment on above: Performed By: #### L IPID, BMP #### [facility] [address] [address] [address] Ismael Kenney CO2 [Moles/Vol] 31.1 mmol/L Normal 21.0-32.0 [facility] Comment on above: Performed By: #### L IPID, BMP #### [facility] [address] [address] [address] Ismael Kenney Creatinine [Mass/Vol] 0.92 mg/dL Normal 0.55-1.02 [facility] Comment on above: Performed By: #### L IPID, BMP #### [facility] [address] [address] [address] Ismael Kenney EGFR-AF ETHIOPIAN >60 Normal >=60 [facility] Comment on above: Performed By: #### L IPID, BMP #### [facility] [address] [address] [address] Ismael Kenney EGFR-NON AF ETHIOPIAN >60 Normal >=60 [facility] Comment on above: Performed By: #### L IPID, BMP #### [facility] [address] [address] [address] Ismael Kenney Glucose [Mass/Vol] 98 mg/dL Normal 74-106 [facility] Comment on above: Performed By: #### L IPID, BMP #### [facility] [address] [address] [address] Ismael Kenney Potassium [Moles/Vol] 4.3 mmol/L Normal 3.5-5.1 [facility] Comment on above: Performed By: #### L IPID, BMP #### [facility] [address] [address] [address] Ismael Kenney Sodium [Moles/Vol] 143 mmol/L Normal 136-145 [facility] Comment on above: Performed By: #### L IPID, BMP #### [facility] [address] [address] [address] Ismael Kenney Urea nitrogen [Mass/Vol] 19.0 mg/dL Critically high 7.0-18.0 [facility] Comment on above: Performed By: #### L IPID, BMP #### [facility] [address] [address] [address] Ismael Kenney Urea nitrogen/Creatinin e [Mass ratio] 20.7 mg/mg Normal [facility] Comment on above: Performed By: #### L IPID, BMP #### [facility] [address] [address] [address] Ismael Kenney Office Visit (Cardiology)on 04-20-2022 [...] in adult Healthy Weight Tips; Status:Complete; Done: [id number] Some eating tips that can help you lose weight.; Status:Complete; Done: [id number] Hypokalemia Start: Potassium Chloride ER 20 MEQ Oral Tablet Extended Release; TAKE 2 TABLET Daily Hypokalemia, Stage 3a chronic kidney disease Basic Metabolic Panel; Status:Active; Requested for:[id number]; Palpitations Start: Magnesium 400 MG Oral Tablet; Take 1 tablet twice daily IO EKG Electrocardiogram- 12 Lead; Status:Complete; Done: [id number] Pre-syncope Tilt Table; Status:Hold For - Scheduling; Requested for:[id number]; Screening for hyperlipidemia Lipid Panel; Status:Active; Requested for:[id number]; SocHx: Current smoker Tobacco Use Screening; Status:Complete; Done: [id number] You need to quit smoking.; Status:Complete; Done: [id number] Tobacco Use Screening; Status:Complete; Done: 65Ovl5081 You need to stop smoking. Though it is not easy, more than half of all adult smokers have quit. We encourage you to write down all the reasons you should quit smoking and set a quit date for yourself. Ask us how we can help. You may also call 3-239-QIPVNOW for free resources and assistance.; Status:Complete; Done: [id number] Tobacco Use Screening; Status:Complete; Done: 11Sse4902 Patient Instructions Please bring all medicines, vitamins, [...] EKG today normal sinus rhythm at 85 MN interval 148 ms QRS duration 80 ms [...] Screening.on 022 Adult depression screening assessment No -[facility] 250 DO Work Phone: Tobacco use status CPHS a) Yes [facility] 250 DO Work Phone: Tobacco Screening. Yes [facility] 250 DO Work Phone: ROSE MARIEOVjason 01-22-2022 CNOV Office Visit (NEADFV ) -------- PINAELIAS THOMAS ([id number]) 1965 F Date Time Provider Department 01/22/22 1:00 PM KYLE WATSONFV During your visit today, we recorded the following information about you: Pulse Blood pressure Weight Height 67/minute 100/71 83.9 kg 1.6 m Kyle Watson MD 01/22/2022 1:50 PM Signed INITIAL CONSULT - HEADACHE MEDICINE SERVICE DATE: January 22, 2022 Location: [facility] Participants: patient, adult daughter and provider Requesting Provider: Recommendations of care will be communicated by shared medical record. Member Name Role and Specialty Contact Info Address Comments Laurie Spicer MD Referring [facility] [phone] - Subjective HPI: Elias M Pina is [...] giving h (more content not included)... Normal [facility] Vital Signs Date Time Vital Sign Value Performing Clinician Facility 06-11-2023 10:30-0500 Body height 160.02 cm Karlene Wang Other [facility] Other 06-11-2023 10:30-0500 Body mass index (BMI) [Ratio] 34.01 kg/m2 Karlene Wang Other [facility] Other 06-11-2023 10:30-0500 Body weight 87.09 kg Karlene Wang Other [facility] Other 06-11-2023 10:30-0500 Diastolic blood pressure 80 mm[Hg] Karlene Wang Other [facility] Other 06-11-2023 10:30-0500 SaO2% (BldA) [Mass fraction] 96 % Karlene Wang Other [facility] Other 06-11-2023 10:30-0500 Systolic blood pressure 116 mm[Hg] Karlene Wang Other [facility] Other 06-10-2023 12:00-0500 Body height 160 cm Alexei Galvan MD Work Phone: [facility] 06-10-2023 12:00-0500 Body mass index (BMI) [Ratio] 34.02 kg/m2 Alexei Galvan MD Work Phone: [facility] 06-10-2023 12:00-0500 Body weight 87.09 kg Alexei Galvan MD Work Phone: [facility] 06-10-2023 12:00-0500 Diastolic blood pressure 69 mm[Hg] Alexei Galvan MD Work Phone: [facility] 06-10-2023 12:00-0500 Heart rate 78 /min Alexei Galvan MD Work Phone: [facility] 06-10-2023 12:00-0500 Systolic blood pressure 120 mm[Hg] Alexei Galvan MD Work Phone: [employer] 02-15-2023 09:15-0400 Body height 160.02 cm Laurie Spicer Other [employer] Other 02-15-2023 09:15-0400 Body mass index (BMI) [Ratio] 34.72 kg/m2 Laurie Spicer Other [employer] Other 02-15-2023 09:15-0400 Body weight 88.91 kg Laurie Spicer Other [employer] Other 02-15-2023 09:15-0400 Diastolic blood pressure 78 mm[Hg] Laurie Spicer Other [employer] Other 02-15-2023 09:15-0400 Systolic blood pressure 116 mm[Hg] Laurie Spicer Other [employer] Other 12-31-2022 10:15-0400 Body height 160.02 cm Laurie Spicer Other [employer] Other 12-31-2022 10:15-0400 Body mass index (BMI) [Ratio] 34.65 kg/m2 Laurie Spicer Other [employer] Other 12-31-2022 10:15-0400 Body weight 88.72 kg Laurie Spicer Other [employer] Other 12-31-2022 10:15-0400 Diastolic blood pressure 75 mm[Hg] Laurie Spicer Other [employer] Other 12-31-2022 10:15-0400 Systolic blood pressure 111 mm[Hg] Laurie Spicer Other [employer] Other 09-10-2022 14:15-0400 Body height 160.02 cm Laurie Spicer Other [employer] Other 09-10-2022 14:15-0400 Body mass index (BMI) [Ratio] 34.18 kg/m2 Laurie Spicer Other [employer] Other 09-10-2022 14:15-0400 Body weight 87.54 kg Laurie Spicer Other [employer] Other 09-10-2022 14:15-0400 Diastolic blood pressure 72 mm[Hg] Laurie Spicer Other [employer] Other 09-10-2022 14:15-0400 SaO2% (BldA) [Mass fraction] 99 % Laurie Spicer Other [employer] Other 09-10-2022 14:15-0400 Systolic blood pressure 112 mm[Hg] Laurie Spicer Other [employer] Other 08-31-2022 08:55-0400 Diastolic blood pressure 80 mm[Hg] Laurie Spicer Work Phone: [employer] 250 DO Work Phone: 08-31-2022 08:55-0400 Systolic blood pressure 124 mm[Hg] Laurie Spicer Work Phone: [employer] 250 DO Work Phone: 08-31-2022 08:52-0400 Body height 160.02 cm Laurie Spicer Work Phone: [employer] 250 DO Work Phone: 08-31-2022 08:52-0400 Body mass index (BMI) [Ratio] 34.72 kg/m2 Laurie Spicer Work Phone: [employer] 250 DO Work Phone: 08-31-2022 08:52-0400 Body surface area Derived from formula 1.92 m2 Laurie Spicer Work Phone: [employer] 250 DO Work Phone: 08-31-2022 08:52-0400 Body weight 88.91 kg Laurie Spicer Work Phone: [facility] [employer] 250 DO Work Phone: 08-31-2022 08:52-0400 Diastolic blood pressure 84 mm[Hg] Laurie Spicer Work Phone: [facility] [employer] 250 DO Work Phone: 08-31-2022 08:52-0400 Heart rate 84 /min Laurie Spicer Work Phone: [facility] [employer] 250 DO Work Phone: 08-31-2022 08:52-0400 Systolic blood pressure 128 mm[Hg] Laurie Spicer Work Phone: [facility] [employer] 250 DO Work Phone: 06-09-2022 10:15-0500 Body height 160.02 cm Laurie Spicer Other [employer] Other 06-09-2022 10:15-0500 Body mass index (BMI) [Ratio] 34.01 kg/m2 Laurie Spicer Other [employer] Other 06-09-2022 10:15-0500 Body weight 87.09 kg Laurie Spicer Other [employer] Other 06-09-2022 10:15-0500 Diastolic blood pressure 80 mm[Hg] Laurie Spicer Other [employer] Other 06-09-2022 10:15-0500 SaO2% (BldA) [Mass fraction] 99 % Laurie Spicer Other [employer] Other 06-09-2022 10:15-0500 Systolic blood pressure 114 mm[Hg] Laurie Aguilera [facility] [employer] Other 06-01-2022 11:01-0500 Diastolic blood pressure 60 mm[Hg] Laurie Spicer Work Phone: [facility] 250 DO Work Phone: 06-01-2022 11:01-0500 Systolic blood pressure 114 mm[Hg] Laurie Spicer Work Phone: [facility] 250 DO Work Phone: 06-01-2022 10:31-0500 Body height 160.02 cm Laurie Spicer Work Phone: [facility] 250 DO Work Phone: 06-01-2022 10:31-0500 Body mass index (BMI) [Ratio] 33.83 kg/m2 Laurie Spicer Work Phone: [facility] 250 DO Work Phone: 06-01-2022 10:31-0500 Body surface area Derived from formula 1.9 m2 Laurie Spicer Work Phone: [facility] 250 DO Work Phone: 06-01-2022 10:31-0500 Body weight 86.64 kg Laurie Spicer Work Phone: [facility] 250 DO Work Phone: 06-01-2022 10:31-0500 Diastolic blood pressure 80 mm[Hg] Laurie Spicer Work Phone: [facility] 250 DO Work Phone: 06-01-2022 10:31-0500 Heart rate 80 /min Laruie Spicer Work Phone: [facility] 250 DO Work Phone: 06-01-2022 10:31-0500 Systolic blood pressure 120 mm[Hg] Laurie Spicer Work Phone: [facility] 250 DO Work Phone: 05-20-2022 11:15-0500 Diastolic blood pressure 74 mm[Hg] MD Jaquelin Christie Work Phone: [facility] 05-20-2022 11:15-0500 Heart rate 78 /min MD Jaquelin Christie Work Phone: [facility] 05-20-2022 11:15-0500 Systolic blood pressure 110 mm[Hg] MD Jaquelin Christie Work Phone: [facility] 05-20-2022 10:49-0500 SaO2% (BldA) [Mass fraction] 99 % MD Jaquelin Christie Work Phone: [facility] 05-05-2022 10:09-0500 143.4 1 Laurie Spicer Work Phone: [facility] 250 DO Work Phone: Comment on above: FSL 05-05-2022 10:09-0500 67 1 Laurie Spicer Work Phone: [facility] 250 DO Work Phone: Comment on above: [id number] 04-20-2022 12:39-0500 Diastolic blood pressure 80 mm[Hg] Laurie Spicer Work Phone: [facility] 250 DO Work Phone: 04-20-2022 12:39-0500 Systolic blood pressure 114 mm[Hg] Laurie Spicer Work Phone: [facility] 250 DO Work Phone: 04-20-2022 12:38-0500 Body height 160.02 cm Laurie Spicer Work Phone: [facility] 250 DO Work Phone: 04-20-2022 12:38-0500 Body mass index (BMI) [Ratio] 33.19 kg/m2 Laurie Spicer Work Phone: [facility] 250 DO Work Phone: 04-20-2022 12:38-0500 Body surface area Derived from formula 1.88 m2 Laurie Spicer Work Phone: [facility] 250 DO Work Phone: 04-20-2022 12:38-0500 Body weight 85 kg Laurie Spicer Work Phone: [facility] 250 DO Work Phone: 04-20-2022 12:38-0500 Diastolic blood pressure 82 mm[Hg] Laurie Spicer Work Phone: [facility] 250 DO Work Phone: 04-20-2022 12:38-0500 Heart rate 85 /min Laurie Spicer Work Phone: [facility] 250 DO Work Phone: 04-20-2022 12:38-0500 Systolic blood pressure 118 mm[Hg] Laurie Spicer Work Phone: [facility] 250 DO Work Phone: Encounters Encounter Date Encounter Type Care Provider Facility Start: 10-04-2023 End: 10-04-2023 ambulatory [facility] Start: 09-15-2023 End: 09-15-2023 ambulatory Laurie Spicer Other [facility] [employer] Other Start: 09-15-2023 Telephone encounter Laurie Spicer [facility] Start: 09-13-2023 End: 09-13-2023 ambulatory [facility] Start: 06-22-2023 Telephone encounter [facility] Start: 06-11-2023 End: 06-11-2023 ambulatory Karlene Felipe Other [employer] Other Start: 06-11-2023 Office outpatient vi sit [address] [facility] Start: 06-10-2023 End: 06-10-2023 ambulatory ALEXEI GALVAN [facility] Start: 06-10-2023 End: 06-10-2023 Patient encounter procedure Alexei Galvan MD Work Phone: [facility] Comment on above: Neuralgia and neurit is (Primary Dx); Chronic migraine without aura, intractable, with status migrainosus Start: 05-27-2023 Refill Alexei Galvan MD Work Phone: [facility] Comment on above: Chronic migraine wit hout aura, intractable, with status migrainosus Start: 05-24-2023 End: 05-24-2023 ambulatory Laurie Spicer Other [employer] Other Start: 05-24-2023 Telephone [address] Laurie Spicer [facility] Start: 04-06-2023 End: 04-06-2023 ambulatory Laurie Spicer Other [employer] Other Start: 04-06-2023 Telephone [address] Laurie Spicer [facility] Start: 03-02-2023 End: 03-02-2023 ambulatory Laurie Spicer Other [employer] Other Start: 03-02-2023 Telephone encounter Laurie Golden [facility] Start: 02-26-2023 End: 02-26-2023 ambulatory Laurie Spicer Other [employer] Other Start: 02-26-2023 [address] Laurie Spicer [facility] Start: 02-22-2023 End: 02-22-2023 ambulatory [facility] Start: 02-15-2023 End: 02-15-2023 ambulatory Laurie Spicer Other [employer] Other Start: 02-15-2023 Office outpatient vi sit [address] [facility] Start: 01-01-2023 End: 01-01-2023 ambulatory Laurie Spicer Other [employer] Other Start: 01-01-2023 Telephone encounter Laurie Spicer [facility] Start: 12-31-2022 End: 12-31-2022 ambulatory Laurie Spicer Other [employer] Other Start: 12-31-2022 Office outpatient vi sit [address] [facility] Start: 11-16-2022 End: 11-16-2022 ambulatory Laurie Spicer Other [employer] Other Start: 11-16-2022 Telephone encounter Laurie Spicer [facility] Start: 09-10-2022 End: 09-10-2022 ambulatory Laurie Spicer Other [employer] Other Start: 09-10-2022 Office outpatient vi sit [address] [facility] Start: 09-07-2022 End: 09-07-[address] SELENE RAMIREZ . Facility: Start: 09-03-2022 End: 09-03-2022 ambulatory Laurie Spicer Other [employer] Other Start: 09-03-2022 Telephone [address] Laurie Spicer [facility] Start: 08-31-2022 Office outpatient vi sit 15 minutes Laurie Spicer Work Phone: [facility] 250 DO Work Phone: Start: 08-31-2022 ambulatory [facility] Facility:1 [id number] Start: 08-05-2022 End: 08-05-2022 ambulatory Laurie Spicer Other [facility] [employer] Other Start: 08-05-2022 Telephone encounter Laurie Golden [facility] Start: 06-25-2022 Chart Update Laurie Spicer Work Phone: [facility] 250 DO Work Phone: Start: 06-09-2022 End: 06-09-2022 ambulatory Laurie Golden Other [employer] Other Start: 06-09-2022 Office outpatient vi sit [address] [facility] Start: 06-08-2022 End: 06-08-2022 ambulatory Laurie Golden Other [facility] [employer] Other Start: 06-08-2022 Telephone [address] Laurie Golden [facility] Start: 06-01-2022 Patient encounter procedure Laurie Spicer Work Phone: [facility] Work Phone: Start: 06-01-2022 ambulatory Marissa Iglesias Facility:1 [id number] Start: 05-21-2022 Chart Update Laurie Spicer Work Phone: [facility] DO Work Phone: Start: 05-20-2022 ambulatory Jaquelin Christie Faci lity:[id number] Start: 05-20-2022 End: 05-20-2022 ambulatory Laurie Spicer Facility:[facility] Start: 05-20-2022 End: 05-20-2022 ambulatory MD Jaquelin Christie Work Phone: [facility] Work Phone: Start: 05-20-2022 End: 05-20-2022 Patient encounter procedure MD Jaquelin Christie Work Phone: [facility] Work Phone: Start: 05-05-2022 End: 05-06-[address] DOCTOR WEBER Facility: Start: 04-20-2022 Office consultation new/estab patient 60 min Laurie Spicer Work Phone: [facility] 250 DO Work Phone: Start: 04-20-2022 Patient encounter procedure [facility] Work Phone: Start: 04-20-[address] Laurie Spicer Facility: Start: 03-13-2022 ambulatory Marissa Iglesias Facility:[facility] Start: 01-22-2022 End: 01-22-2022 ambulatory KYLE WATSON Facility:[facility] Start: 11-06-2021 ambulatory Alyson Galaviz RN [facility] Start: 11-06-2021 Patient encounter procedure Alyson Galaviz RN NURSE JEWEL STAKER Comment on above: Referral Request Start: 10-16-2020 End: 10-17-2020 ambulatory Roderick THOMPSON Facility:[facility] Procedures Date Procedure Procedure Detail Performing Clinician [...] 06-10-2024 Adult BMI Screening Adult BMI Screening [facility] Start: 06-10-2024 Depression Screening Depression Screening [facility] Start: 06-10-2024 Tobacco Screening Tobacco Screening [facility] Start: 03-04-2024 Adult BMI Screening Adult BMI Screening [facility] Start: 03-04-2024 Depression Screening Depression Screening [facility] Start: 03-04-2024 Tobacco Screening Tobacco Screening [facility] Start: 09-13-2023 End: 09-13-2023 Patient encounter procedure 09/13/2023 12:45 PM EDT Procedure visit [facility] [address] [place] [phone] Alexei Galvan MD [address] [place] [address], [address] [place] [address] [facility] Start: 06-10-2023 End: 06-10-2023 Patient encounter procedure 06/10/2023 12:00 PM EST Procedure visit [facility] [address] [place] [phone] Alexei Galvan MD [address] [place] [address], [address] [place] [address] [facility] Start: 04-14-2023 DTaP,Tdap and Td Vaccines (2 - Tdap) DTaP,Tdap and Td Vaccines (2 - Tdap) [facility] Start: 02-22-2023 FUV, Provider: Marissa Iglesias, Status: Pen, Time: 9:15 AM FUV, Provider: Marissa Iglesias, Status: Pen, Time: 9:15 AM [facility] 250 DO Work Phone: Start: 01-01-2023 COVID-19 Vaccine ( season) COVID-19 Vaccine ( season) [facility] Start: 01-01-2023 Influenza vaccination Influenza Vaccine [facility] Start: 08-31-2022 FUV, Provider: Marissa Iglesias, Status: Pen, Time: 9:15 AM FUV, Provider: Marissa Iglesias, Status: Pen, Time: 9:15 AM [facility] 250 DO Work Phone: Start: 06-30-2022 Adult BMI Follow Up Plan Adult BMI Follow Up Plan [facility] Start: 06-01-2022 FUV, Provider: Marissa Iglesias, Status: Pen, Time: 10:30 AM FUV, Provider: Marissa Iglesias, Status: Pen, Time: 10:30 AM [facility] 250 DO Work Phone: Start: 05-28-2022 SURGNONUH, Provider: Marissa Iglesias, Status: Pen, Time: 9:00 AM SUR[facility], Provider: Marissa Iglesias, Status: Pen, Time: 9:00 AM [facility] 250 DO Work Phone: Start: 01-01-2022 Influenza vaccination INFLUENZA (#1) [facility] Start: 2016 Administration of varicella zoster vaccine Zoster (Shingles) Vaccine (1 of 2) [facility] Start: 2016 SHINGRIX VACCINE (1 of 2) SHINGRIX VACCINE (1 of 2) [facility] Start: 11-05-2011 COLOGUARD (FIT-DNA) COLOGUARD (FIT-DNA) [facility] Start: 11-05-2011 Colonoscopy COLONOSCOPY [facility] Start: 11-05-2011 COLORECTAL CANCER SCREENING COLORECTAL CANCER SCREENING [facility] Start: 11-05-[address] COLONOGRAPHY [facility] Start: 11-05-2011 DIABETES SCREEN DIABETES SCREEN [facility] Start: 11-05-2011 FECAL OCCULT BLOOD FECAL OCCULT BLOOD [facility] Start: 11-05-2011 LIPID SCREEN LIPID SCREEN [facility] Start: 11-05-2011 SIGMOIDOSCOPY SIGMOIDOSCOPY [facility] Start: 2006 Mammography MAMMOGRAM [facility] Start: 1996 HPV TESTING HPV TESTING [facility] Start: 11-05-1987 PAP TESTING PAP TESTING [facility] Start: 11-05-1987 Screening for malignant neoplasm of cervix Pap Smear [facility] Start: 1985 Urine microalbumin profile DTAP,TDAP,TD (1 - Tdap) [facility] Start: 1984 HEPATITIS C SCREENING HEPATITIS C SCREENING [facility] Start: 1984 HIV SCREENING HIV SCREENING [facility] Start: 1978 Adult depression screening assessment DEPRESSION SCREENING [facility] Start: 05-07-1967 COVID-19 VACCINE (#1) COVID-19 VACCINE (#1) [facility] Start: 1966 Tobacco Counseling Tobacco Counseling [facility] Immunizations Immunization Date Immunization Notes Care Provider Deuce vee 02-28-2021 Pfizer-BioNTech COVI D-19 Vacc 30 MCG/0.3ML Intramuscular Suspension Laurie E Spicer Work Phone: [facility] 250 DO Work Phone: 08-05-2020 Pfizer-BioNTech COVI D-19 Vacc 30 MCG/0.3ML Intramuscular Suspension Laurie E Spicer Work Phone: [facility] 250 DO Work Phone: 07-14-2020 Pfizer-BioNTech COVI D-19 Vacc 30 MCG/0.3ML Intramuscular Suspension Laurie E Spicer Work Phone: [facility] 250 DO Work Phone: 04-14-2013 diphtheria, tetanus toxoids and acellular pertussis vaccine Laurie E Spicer Work Phone: [facility] 250 DO Work Phone: Payers Date Payer Category Payer Medicaid [employer] O [id number] 2022-Present [phone] [address] [place] [address] [id number] 2022 Unknown [id number] 2022 Self-pay 2015 Private Health Insurance [employer] ASA GENERIC [id number] 2015-Present [phone] [place] [address] PPO [id number] 1966 Unknown [id number] [id number]. 356 1966 Unknown [id number] [id number]. 356 1966 Unknown [id number] [id number]. 356 1966 Unknown [id number] [id number]. 356 1966 Unknown [id number] [id number]. 593 1966 Unknown [id number] [id number]. 593 1966 Unknown [id number] [id number]. 727 1966 Unknown [id number] [id number]. 1286 1966 Unknown [id number] 2.16.840.1.853912.3.579.2. 1286 1966 Unknown [id number] [id number]. 1244 1966 Unknown [id number]. 1244 1959 Private Health Insurance [id number] 1959 Unknown [id number] Unknown [id number] Unknown Unknown [id number]. 531 Social History Date Type Detail Facility Start: 11-13-2015 End: 08-24-2022 Tobacco smoking status HIIS Smokes tobacco daily [facility] Work Phone: History of tobacco use Cigarette Smoker C 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 Start: 1965 Sex Assigned At Female F [facility] Start: 03-04-2023 End: 06-10-2023 Sex Assigned At [facility] [employer] Other Start: 08-24-2022 Tobacco use and exposure Smokeless tobacco non-user [facility] Start: 03-04-2023 End: 06-10-2023 Alcohol intake Ex-drinker (finding) [employer] Adolescent depressio n screening assessment 0 [facility] Procedure Code Equipment Code Equipment Origin al Text Equipment Identifier Dates [id number], [id number] Star t: 12-14-2022 Clinical Notes 11-06-2021 to 06-22-2023 Telephone Encounter - Diane Webb CNA - 06/22/2023 4:06 PM ESTTelephone Encounter - Diane Webb CNA - 06/22/2023 4:06 PM EST Note Date & Type Note Facility 06-22-2023 Miscellaneous Notes Formattin g of this note might be different from the original. 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 Place ice or a cool, wet towel on the sores 3 times a day for 20 minute incriments. It may help to reduce redness and swelling. If you are just getting a cold sore, try [id number] Abreva cream to reduce symptoms. Do not [...] Jun, Blister (ICD-10 - T14.8XXA) see above. [employer] Other 02-08-2024 History of Present illness Narrative* [...] by mouth as needed. lancets 33 gauge [facility] USE TO TEST BLOOD SUGAR DAILY loratadine [...] months for further injections. Kenalog [facility] [place] 2] [id number] Lot [id number] Exp 12/2023 Bupivacaine [facility] [place] 2] [id number] Lot [id number] Exp 09/01/2023 1. Neuralgia and neuritis - bupivacaine PF (MARCAINE) 0.5 % (5 mg/mL) injection 20 mg - triamcinolone acetonide (KENALOG-40) injection 20 mg 2. Chronic migraine without aura, intractable, with status migrainosus - bupivacaine PF (MARCAINE) 0.5 % (5 mg/mL) injection 20 mg - triamcinolone acetonide (KENALOG-40) injection 20 mg PLAN[facility]* Encounter Date Diagnosis Assessment Notes Treatment Notes Treatment Clinical Notes Jan, Eczema, dyshidrotic (ICD-10 - L30.1) Discussed diagnosis with pt. Rx cream as directed for spot treatment and flare ups. Discussed need for chronic treatment with moisturizer. Recommended aquaphor, vasaline, or cerave lotion. F/u with derm for any persistent, changing, or worsening sx. Pt understood and agreed to tx plan. [employer] Other 08-31-2023 Evaluation note* Encounter Date Diagnosis Assessment Notes Treatment Notes Treatment Clinical Notes Dec, Acute pain of right knee (ICD-10 - M25.561) Will use prednisone for acute anti-inflammatory results. Advised to elevate leg and check xray today to r/o fracture. Dec, Right leg pain (ICD-10 - M79.604) Will check US to r/o DVT. Pt expresses understanding. [employer] Other 05-11-2023 Evaluation note* Encounter Date Diagnosis Assessment Notes Treatment Notes Treatment Clinical Notes August, Essential tremor (ICD-10 - G25.0) Resolved - will review symptoms w her Neurologist next week. August, Anxiety (ICD-10 - F41.9) chronic and controlled on present meds August, Meniere's disease, unspecified laterality (ICD-10 - H81.09) chronic and unchanged. [employer] Other 05-01-2023 History of Present illness Narrative* [...] well. LDL goal is 70 or below. -[facility] [employer] 250 DO Work Phone: [phone]) 639-386602-07-2023 Evaluation note* Encounter Date Diagnosis Assessment Notes Treatment Notes Treatment Clinical Notes Jun, Orthostatic dizziness (ICD-10 - R42) Prescribed by her encyclopedia research worker; needs it sent to a different pharmacy. Followup with Dr. Iglesias. She is instructed to increase hydration, salt, and exercise as able. Jun, Anxiety (ICD-10 - F41.9) Pt requests to increase her dose as her situational and medical problems have increased her anxiety Jun, Smoker (ICD-10 - F17.200) Discussed modalities to help quit smoking [employer] Other 12-19-2022 History of Present illness Narrative* [...] HDL 62 triglycerides 103 and LDL 143. -[facility] [employer] 250 DO Work Phone: 1(184) 986-307209-22-2022 NoteHNO ID: [id number] Author: Kyle Watson MD Service: ? Author Type: Physician Type: Progress Notes Filed: 01/22/2022 1:50 PM Note Text: INITIAL CONSULT - HEADACHE MEDICINE SERVICE DATE: January 22, 2022 Location: [facility] (formerly [facility]) Participants: patient, adult daughter and provider Requesting Provider: Recommendations of care will be communicated by shared medical record. Member Name Role and Specialty Contact Info Address Comments Laurie Spicer MD Referring [address] [facility] [id number] - Subjective HPI: Elias Heller is a [...] a tilt table test with her local encyclopedia research worker. -Episodic migraine without aura. Reviewing her neurologist notes, I believe her management is a (more content not included)...[facility] 11-06-2021 Miscellaneous Notes* Telephone Encounter - Alyson Galaviz RN - 11/06/2021 9:00 AM EDT Patient calling with request for physician referral: Patient referred to Neurological Department. .Patient denies any new or worsening symptoms of which a provider is not aware: Yes. Patient's PCP is referring her to [facility] for severe headaches. Conferenced to the Appointment Center for scheduling. GO TO THE EMERGENCY ROOM OR CALL 911 IF: * You develop any new symptoms * Your condition worsens * You are concerned or anxious about your condition for any other reason. If you have any questions, you can call Nurse donation worker back. documented in this encounterTri[facility] HospitalEvaluation noteNo assessment information [facility] Work Phone: Evaluation noteNo Information[facility] [employer] Other Evaluation note* Diagnosis Chronic migraine without aura, intractable, with status migrainosus [facility] Neuralgia and neuritis- Primary Chronic migraine without aura, intractable, with status migrainosus [facility] encounter [facility] N[facility]ative - Reported* Type Description Date [...] Hospitalization History No Hospitalization histo ry information [facility] [employer] Other History general Narrative - Reported* Type [...] History tonsillectomy Hospitalization History SEE SURGICAL HX [facility] [employer] Other InstructionsNot on filedocumented in this encounter [facility] [employer] SystemInstructions* Attachments The following attachments cannot be sent through Care Everywhere. 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 Relationship Specialty Start Date End Date Laurie Spicer MD [address] [place] [phone] PCP - General Family Practice 10/17/15 Team Status: Inactive Member Role Status Dates Marissa Iglesias MD Attending Provider Active Jaquelin Christie MD Referring Provider Active Laurie Spicer MD Primary Care Provider Active Team Status: Active Member Role Status Dates Laurie Spicer MD Primary Care Provider Active [employer] Power[employer] Supervisor Relationship Specialty Start Date End Date Laurie Spicer MD [address] [place] [phone] PCP - General Family Medicine 06/30/21 [employer] Powerplant Supervisor Relationship Specialty Start Date End Date Laurie Spicer MD [address] [place] [phone] PCP - General Family Medicine 06/30/21 [employer] Power[employer] Supervisor Relationship Specialty Start Date End Date Laurie Spicer MD [address] [place] [phone] PCP - General Family Medicine 06/30/21 INFORMATION SOURCE (unrecogn ized section and content) DATE CREATED AUTHOR 02/01/2022 [facility] DATE CREATED AUTHOR AUTHOR'S ORGANIZ ATION 06/06/2022 [facility] DATE CREATED AUTHOR AUTHOR'S ORGANIZ ATION 08/31/2022 [facility] DATE CREATED AUTHOR AUTHOR'S ORGANIZ ATION 08/31/2022 [facility] DATE CREATED AUTHOR AUTHOR'S ORGANIZ ATION 09/10/2022 [facility] DATE CREATED AUTHOR AUTHOR'S ORGANIZ ATION 10/09/2022 [facility] DATE CREATED AUTHOR AUTHOR'S ORGANIZ ATION 09/14/2023 [facility] DATE CREATED AUTHOR AUTHOR'S ORGANIZ ATION 10/22/2023 [facility]ulatory Goals (unrecognized section and content) Goals [...] BE BASED ON THE PRIMARY CLINICAL RECORDS. [facility]. provides no warranty or guarantee of the accuracy or completeness of information in this document.
== END 2023-12-02 15:41 | disposition home or self-care (01) ==
LOC: RAD 15:40
PROVIDERS: PCP Family Medicine; Visit Provider Family Medicine
DX: M54.16 Radiculopathy, lumbar region (principal)
CPT/HCPCS: 72100

== ENCOUNTER 2023-12-17 16:36 | Outpatient (RCR) | payer OTHER, SELFPAY | END 2023-12-18 15:16 | disposition home or self-care (01) | LOC: PT 16:36 | PROVIDERS: PCP Family Medicine; Visit Provider Family Medicine | DX: M54.50 Low back pain, unspecified (principal) | CPT/HCPCS: 97163 ==

== ENCOUNTER 2025-01-24 09:56 | Outpatient (OUT) | payer MEDICARE, SELFPAY ==
--- NOTE | 2025-01-24 09:58 | US_ITS ---
[address] [address] Patient Name: ELIAS HELLER MRN: [id number] date: 1965 Sex: F Assigned Patient Location: [place] Current Patient Location: Accession/Order Number: [id number] Exam Date: 01/24/2025 10:17 Report Date: 01/24/2025 11:16 At the request of: SHELDON SPICER MD Procedure: US thyroid Thyroid ultrasound Reason for exam: Thyromegaly. Fatigue. Comparison: none Technique: Grayscale and color Doppler images of the thyroid gland were obtained. Findings: The right lobe measures 4.7 x 1.4 x 1.5 cm. The left lobe measures 3.4 x 1.3 x 1.3 cm. The thyroid gland is retroverted homogeneous in echotexture without hyperemia or nodule. US/US thyroid Impression: Unremarkable thyroid ultrasound. Impression dictated by: Peter Deal Jr., D.O. 01/24/2025 11:16 AM Dictation Location: [place] [address] Electronically authenticated by: [id number] Y Date: 01/24/2025 11:16
--- NOTE | 2025-01-24 09:58 | MM_ITS ---
Patient Name: ELIAS HELLER MR#: [id number] : 1965 Exam Date: 01/24/2025 Ordering Doctor: DR SHELDON SPICER M.D. RADIOLOGY REPORT PROCEDURE: MM TOMOSYNTHESIS SCREENING BI COMPARISON: MG MAMM SCREEN JUAN W CAD, 07/26/2018. MG MAMM JUAN SCRN W CAD DIG, 07/16/2015. INDICATIONS: Screening Calculator Name NCI Breast Cancer Risk Assessment Tool 5 Year Breast Cancer Risk Not Reported. Lifetime Breast Cancer Risk Not Reported. Personal Breast Cancer No Personal Ovarian Cancer No Treatments None Family Cancers None LOCATION: [facility] BREAST COMPOSITION: There are scattered areas of fibroglandular density. FINDINGS: RIGHT BREAST: No significant suspicious finding. LEFT BREAST: No significant suspicious finding. There is a similar focal asymmetry. DIAGNOSTIC CATEGORY 2--BENIGN FINDING. NO CHANGE FROM COMPARISON. RECOMMENDATIONS: ROUTINE MAMMOGRAM AND CLINICAL EVALUATION IN 12 MONTHS. Dictated by: Ben Geiger MD on 01/24/2025 at 11:35 Approved by: Ben Geiger MD on 01/24/2025 at 11:35
--- OUTSIDE RECORDS SUMMARY | 2025-01-24 10:05 | XMS_ITS | CCD ---
Author Organization [facility] Care Team Providers Care General Service Officer Name Role Phone Laurie Spicer MD Primary Care Provider KYLE WATSON Attending Unavailable LAURIE SPICER Referring Unavailable LAURIE SPICER Primary Care Unavailable Laurie Spicer Unavailable Unavailable Unavailable MD Marissa Iglesias Attending Provider [phone] MD Jaquelin Christie Referring Provider MD Laurie Spicer Primary Care Provider [phone] Laurie Spicer Primary Care Unavailable Marissa Iglesias Attending Unavailable Marissa Iglesias Admitting Unavailable Jaquelin Christie Referring Unavailable Laurie Spicer Unavailable Marissa Iglesias Attending Unavailable Marissa Iglesias Referring Unavailable Golden, Dr. Laurie Corey Primary Care Unav ailable Golden, Dr. Laurie Corey Primary Care Unav ailable Marissa Iglesias Attending Unavailable Marissa Iglesias Referring Unavailable Jaquelin Christie Attending Unavailable Dr. Laurie Spicer Primary Care Unav ailable Marissa Iglesias Attending Unavailable Marissa Iglesias Referring Unavailable Golden, Dr. Laurie Corey Primary Care Unav ailable JAMES Fu, DR MORTON Attending Unavailable JAMES ., DR MORTON Consulting Unavailable JAMES Fu, DR MORTON Admitting Unavailable LAURIE SPICER Primary Care Unavailable MARJAN CHAPA Consulting Unavailab le MISC, DR CODY Admitting Unavailable LAURIE SPICER Primary Care Unavailable MISC, DR CODY Attending Unavailable MISC, DR CODY Consulting Unavailable Roderick THOMPSON Attending Unavailable Karlene Wang Unavailable ALEXEI GALVAN Attending LAURIE Nicole Referring Unavailable LAURIE SPICER Primary Care Unavailable ALEXEI GALVAN Attending LAURIE Nicole Referring Unavailable LAURIE SPICER Primary Care Unavailable MARISSA IGLESIAS Attending Unavailable LAURIE SPICER Primary Care Unavailable JAJA HARDING Attending Unavailable MARISSA IGLESIAS Referring Unavailable LAURIE SPICER Primary Care Unavailable Laurie Spicer MD Primary Care Provider Laurie Spicer MD Primary Care Provider Laurie Spicer MD Attending Provider Allergies Allergy Classification Reported Allergen(s) Allergy Type Date of Onset Reaction(s) Facility (8 sources) Meperidine; Translations: [MEPERIDINE (PF)] Drug Allergy 6 GI Upset, Itching [facility] Work Phone: (20 sources) Meperidine; Translations: [Demerol TABS] Drug Allergy 2 [facility] (4 sources) Meperidine; Translations: [meperidine] Drug Allergy 2 [facility] (2 sources) Meperidine; Translations: [Demerol] Drug Allergy 5 [facility] Repository Medications Current Medications Medication Drug Class(es) Dates Sig (Normalized) Sig (Original) Aspir-81 (16 sources) Aspir-81 Active aspirin 81 mg delayed release oral tablet (16 sources) Platelet Aggregation Inhibitor, Nonsteroidal Anti-inflammatory Drug Start: 10-08-2023 Aspirin (Tara Low Dose Aspirin) 81 mg tablet,delayed release (DR/EC) Active 81 MG PO Daily October 08, 2023 12:00am Complies with drug therapy Comment on above: Take 81 mg by mouth once daily. Calcium (19 sources) Phosphate Binder, Calcium Calcium Active Calcium + D TABS TAKE 1 TABLET DAILY. Quantity: 0 Refills: 0 Ordered: 01-Jun-2022 DO Active Calcium Carbonate / vitamin D3 (5 sources) calcium carbonat e/vitamin D3 (CALCIUM WITH VITAMIN D ORAL) Take by mouth. Active calcium carbonat e/vitamin D3 (CALCIUM WITH VITAMIN D ORAL) Take by mouth. 0 Active 1 ml erenumab-aooe 70 mg/ml auto-injector (6 sources) Start: 01-18-2023 End: 05-31-2023 erenumab-aooe (AIMOVIG AUTOINJECTOR) 70 mg/mL auto-injector Indications: Chronic migraine without aura, intractable, with status migrainosus INJECT 70MG SUBCUTANEOUSLY EVERY 28 DAYS 1 mL 3 05/31/2023 Active hydroCHLOROthiazide 25 mg / triamterene 37.5 mg oral tablet (20 sources) Potassium-spar ing Diuretic, Thiazide Diuretic take 1 tablet by mouth once in the morning triamterene-hydroCH LOROthiazid (MAXZIDE-25) 37.5-25 mg per tablet Take 1 tablet by mouth in the morning. Active take 1 tablet by margoth th every twenty-four hours Triamterene-HCTZ 37.5-25 MG 1 tablet in the morning Orally Once a day Active Triamterene-HCTZ 25-37.5 MG CAPS TAKE 1 CAPSULE Daily Quantity: 0 Refills: 0 Ordered: 20-Apr-2022 DO Active ibuprofen 800 mg oral tablet (20 sources) Nonsteroidal Anti-inflammatory Drug Start: 08-13-2020 take 1 tablet by mouth three times daily as needed for pain Ibuprofen 800 mg tablet Active 800 MG PO Three times daily October 08, 2023 12:00am FreeTextSig: TAKE 1 TABLET BY MOUTH THREE TIMES A DAY NEEDED FOR PAIN; Note: Source Status: Taking; Refills: 1; Qty: 90 Tablet; Provider: Golden Sullivan ( ) Complies with drug therapy take 1 tablet by margoth th every six hours as needed ibuprofen (MOTRIN) 200 mg tablet Take 20 0 mg by mouth every 6 hours as needed. 0 Active Comment on above: Take 200 mg by mouth every 6 hours as needed. loratadine 10 mg oral tablet (20 sources) Start: 10-08-19 take 1 tablet by mouth once daily Loratadine (Claritin) 10 mg tablet Active 1 TAB PO Daily October 08, 2023 12:00am FreeTextSi tablet Orally Once a day; Note: Source Status: Not-TakingundefinedP RN; Provider: Golden Sullivan ( ) Complies with drug therapy Comment on above: Take 10 mg by mouth once daily. magnesium aspartate 250 mg / potassium aspartate 250 mg oral capsule (3 sources) take 1 capsule by mouth every twenty-four hours Potassium & Magnesium Aspartat 250-250 MG 1 capsule with a meal Orally Once a day Active magnesium oxide 400 mg oral tablet (5 sources) take 1 tablet by mouth in the morning, then take 1 tablet by mouth at bedtime magnesium oxide (MAGOX) 400 mg tablet Take 1 tablet (400 mg total) by mouth in the morning and 1 tablet (400 mg total) before bedtime. t. Active meclizine hydrochloride 25 mg oral tablet (5 sources) Antiemetic take 1 tablet by mouth three times daily as needed for dizziness meclizine (ANTIVERT) 25 mg tablet Take 1 tablet (25 mg total) by mouth 3 (three) times a day as needed for dizziness. Active multivitamin capsule (5 sources) take 1 capsule by mouth in the morning multivitamin capsule Take 1 capsule by mouth in the morning. Active take 1 capsule by mouth in the m orning multivitamin capsule Take 1 capsule by mouth in the morning. 0 Active Multivitamin preparation (16 sources) Multivitamin Act larry ondansetron 4 mg disintegrating oral tablet (2 sources) Serotonin-3 Receptor Antagonist Start: 09-10-19 24 take 1 tablet by mouth every eight hours as needed ondansetron ODT (ZOFRAN ODT) 4 mg disintegrating tablet Dissolve 1 tablet (4 mg total) on tongue every 8 (eight) hours as needed. 09/10/2023 Active permethrin 50 mg/ml topical cream (2 sources) Pyrethroid Start: 01-04-20 25 Permethrin 5 % cream Active 1 APPLIC TOPICAL Q14D 60 January 03, 2025 12:00am apply second treatment 14 days after first treatment if live lice remain Complies with drug therapy Potassium (5 sources) take 40 mEq by mouth once daily POTASSIUM ORAL Take 40 mEq by mouth. daily Active take 40 mEq by mouth once daily POTASSIUM ORAL Take 40 mEq by mouth. daily 0 Active Potassium & Magnesium Aspartat 250-250 MG (8 sources) take 1 capsule by mouth once daily Potassium & Magnesium Aspartat 250-250 MG 1 capsule with a meal Orally Once a day Active predniSONE 20 mg oral tablet (2 sources) Start: 01-01-20 23 take 2 tablets by mouth every twenty-four hours predniSONE 20 MG 2 tablets Orally Once a day for 5 days Dec, Active valACYclovir 1000 mg oral tablet (2 sources) Herpesvirus Nucleoside Analog DNA Polymerase Inhibitor, Herpes Simplex Virus Nucleoside Analog DNA Polymerase Inhibitor, Herpes Zoster Virus Nucleoside Analog DNA Polymerase Inhibitor Start: 06-11-19 take 1 tablet by mouth every twelve hours valACYclovir HCl 1 GM 1 tablet Orally Twice a day for 7 days Jun, Active 24 hr venlafaxine 150 mg extended release oral capsule (20 sources) Serotonin and Norepinephrine Reuptake Inhibitor Start: 02-23-20 End: 01-19-20 take 1 capsule by mouth once daily at mealtime Venlafaxine 150 mg capsule,extended release 24hr Active 0 .ROUTE .COMPLEX January 18, 2025 9:58am TAKE 1 CAPSULE BY MOUTH EVERY DAY WITH FOOD Complies with drug therapy Start: 10-08-2023 End: 02-23-2024 take 1 capsule by mouth once daily at mealtime Venlafaxine 150 mg capsule,extended release 24hr Discontinued MG PO October 08, 2023 12:00am February 23, 2024 3:47pm FreeTextSig: TAKE 1 CAPSULE BY MOUTH EVERY DAY WITH FOOD FOR 90 DAYS; Note: Source Status: Start; Refills: 1; Qty: 90 Capsule; Provider: Golden Sullivan ( ) take 1 capsule by mo [facility] every twenty-four hours in the morning venlafaxine XR (EFFEXOR-XR) 75 mg 24 hr capsule Take 1 capsule (75 mg total) by mouth in the morning. Active Venlafaxine HCl ER 150 MG TAKE 1 CAPSULE BY MOUTH EVERY DAY WITH FOOD FOR 90 DAYS for 90 Active take 1 tablet by margoth once daily Venlafaxine HCl - 75 MG Oral Tablet TAKE 1 TABLET DAILY. Quantity: 0 Refills: 0 Ordered: 20-Apr-2022 DO Active Completed/Discontinued Medications Medication Drug Class(es) Dates Sig (Normalized) Sig (Original) atorvastatin 10 mg oral tablet (20 sources) HMG-CoA Reductase Inhibitor Start: 10-08-2023 End: 01-18-2025 take 1 tablet by mouth once daily Atorvastatin 10 mg tablet Discontinued 1 TAB PO Daily October 08, 2023 12:00am January 18, 2025 9:25am FreeTextSi tablet Orally Once a day; Note: Source Status: Taking; Provider: Golden Sullivan ( ) Start: 11-05-2022 take 1 tablet by margoth th once daily atorvastatin (LIPITOR) 40 mg tablet Take 1 tablet (40 mg total) by mouth nightly. 11/05/2022 Active Start: 06-01-2022 take 1 tablet by margoth th at bedtime Atorvastatin Calcium 40 MG Oral Tablet TAKE 1 TABLET AT BEDTIME. Quantity: 90 Refills: 1 Ordered: 31-Aug-2022 Marissa Iglesias MD Start : 01-Jun-2022 Active New start take 1 tablet by margoth th every twenty-four hours Atorvastatin Calcium 10 MG 1 tablet Orally Once a day Active 30 ml bupivacaine hydrochloride 5 mg/ml injection (4 sources) Amide Local Anesthetic Start: 09-13-2023 End: 09-13-2023 bupivacaine PF (MARCAINE) 0.5 % (5 mg/mL) injection 20 mg Start: 09-13-2023 End: 09-13-2023 inject 20 mg by intramuscular injection once 20 mg (4 mL), intramuscular, Once, On Wed09/13/23 at 1330, For 1 dose Start: 06-10-2023 End: 06-10-2023 bupivacaine PF (MARCAINE) 0. 5 % (5 mg/mL) injection 20 mg Start: 06-10-2023 End: 06-10-2023 bupivacaine PF (MARCAINE) 0. 5 % (5 mg/mL) injection 20 mg busPIRone hydrochloride 10 mg oral tablet (20 sources) Start: 11-29-2023 End: 01-18-2025 take 1 tablet by mouth twice daily Buspirone 10 mg tablet Discontinued 0 .ROUTE .COMPLEX 180 November 29, 2023 11:26am January 18, 2025 9:25am TAKE 1 TABLET BY MOUTH TWICE A DAY Start: 08-30-2023 End: 11-29-2023 take 1 tablet by mouth twice daily Buspirone 10 mg tablet Discontinued 10 MG PO Twice daily October 18, 2023 8:34am November 29, 2023 11:26am calcium acetate 668 mg oral tablet (2 sources) Start: 10-08-2023 End: 01-18-2025 take 1 tablet by mouth three times daily Calcium Acetate 668 mg (169 mg calcium) tablet Discontinued 668 MG PO Three times daily October 08, 2023 12:00am January 18, 2025 9:25am cetirizine hydrochloride 10 mg oral tablet (18 sources) Histamine-1 Receptor Antagonist Start: 10-08-2023 End: 10-18-2023 take 1 tablet by mouth once daily as needed Cetirizine 10 mg tablet Discontinued 10 MG PO Daily as needed October 08, 2023 12:00am October 18, 2023 2:27pm Cetirizine HCl A ctive clobetasol propionate 0.5 mg/ml topical cream (9 sources) Corticosteroid Start: 10-08-2023 End: 01-18-2025 Clobetasol 0.05 % cream Discontinued 1 APPLIC TOPICAL Twice daily October 08, 2023 12:00am January 18, 2025 9:27am FreeTextSi application Externally Twice a day; Note: Source Status: Start; Refills: 2; Provider: Golden Gold Clobetasol Propi britt 0.05 % 1 application Externally Twice a day for 10 days Active Clobetasol Propi britt 0.05 % 1 application Externally Twice a day for 10 days Active cyclobenzaprine hydrochloride 10 mg oral tablet (20 sources) Muscle Relaxant Start: 10-19-2023 End: 12-02-2023 take 1 tablet by mouth once daily at bedtime Cyclobenzaprine 10 mg tablet Discontinued 0 .ROUTE .COMPLEX October 19, 2023 8:35am December 02, 2023 10:47am TAKE 1 TABLET BY MOUTH EVERYDAY AT BEDTIME Start: 06-08-2022 End: 10-19-2023 take 1 tablet by mouth once daily at bedtime Cyclobenzaprine 10 mg tablet Discontinued 10 MG PO Daily at bedtime October 08, 2023 12:00am October 19, 2023 8:35am FreeTextSig: TAKE 1 TABLET BY MOUTH EVERY DAY AT BEDTIME; Note: Source Status: Start; Refills: 3; Qty: 30 Tablet; Provider: Golden Sullivan ( ) docusate sodium 100 mg oral capsule (18 sources) Start: 10-08-2023 End: 10-18-2023 take 1 capsule by mouth once daily as needed Docusate Sodium 100 mg capsule Discontinued 1 CAP PO Daily October 08, 2023 12:00am October 18, 2023 2:26pm FreeTextSi capsule as needed Orally Once a day; Note: Source Status: Taking; Provider: Golden Sullivan ( ) take 1 capsule by mo ut every twenty-four hours Stool Softener 100 MG 1 capsule as needed Orally Once a day Active docusate sodium (STOOL SOFTENER ORAL) Take by mouth 2 (two) times a day. Active docusate sodium (STOOL SOFTENER ORAL) Take by mouth 2 (two) times a day. 0 Active fexofenadine (3 sources) Histamine-1 Receptor Antagonist Viola CAPS TAKE 1 CAPSULE Daily Quantity: 0 Refills: 0 Ordered: 01-Jun-2022 DO Active Magnesium (8 sources) Start: 04-20-2022 take 1 tablet by mouth twice daily Magnesium 400 MG Oral Tablet Take 1 tablet twice daily Quantity: 180 Refills: 1 Ordered: 31-Aug-2022 Marissa Iglesias MD Start : 20-Apr-2022 Active new start Start: 04-20-2022 take 1 tablet by margoth twice daily Magnesium 400 MG Oral Tablet Take 1 tablet twice daily Quantity: 180 Refills: 3 Ordered: 20-Apr-2022 Marissa Iglesias MD Start : 20-Apr-2022 Active new start methylPREDNISolone 4 mg oral tablet (16 sources) Corticosteroid Start: 01-03-2025 End: 01-18-2025 Methylprednisolone 4 mg tablets,dose pack Discontinued 0 PO per package directions January 03, 2025 12:00am January 18, 2025 9:26am PO PER PKG DIR for 6 days Start: 08-13-2020 Medrol 4 MG as directed Orally for 6 days Aug, Not-Taking/PRN midodrine hydrochloride 5 mg oral tablet (20 sources) alpha-Adrenergic Agonist Start: 10-08-2023 End: 01-18-2025 take 1 tablet by mouth three times daily Midodrine 5 mg tablet Discontinued 5 MG PO Three times daily October 08, 2023 12:00am January 18, 2025 9:26am FreeTextSi tablet Orally tid; Note: Source Status: Taking; Refills: 1; Qty: 270 Tablet; Provider: Golden Gold Start: 06-01-2022 take 1 tablet by margoth every eight hours Midodrine HCl 5 MG 1 tablet Orally tid for 90 day(s) Jun, Active take 2 tablets by mo [facility] three times daily in the evening midodrine (PROAMATINE) 5 mg tablet Take 2 tablets (10 mg total) by mouth 3 (three) times a day. Takes 10MG in am and 10 mg at noon and 5mg in the PM Active Multi Vitamin Oral Tablet (3 sources) take 1 tablet by mouth once daily Multi Vitamin Oral Tablet TAKE 1 TABLET DAILY. Quantity: 0 Refills: 0 Ordered: 01-Jun-2022 DO Active Multivitamin tablet (2 sources) Start: 10-08-2023 End: 01-18-2025 take 1 tablet by mouth once daily Multivitamin tablet Discontinued 1 TAB PO Daily October 08, 2023 12:00am January 18, 2025 9:26am Start: 10-08-2023 take 1 tablet by mouth once da [place] pantoprazole 40 mg delayed release oral tablet (20 sources) Proton Pump Inhibitor Start: 10-08-2023 End: 10-18-2023 take 1 tablet by mouth once daily Pantoprazole 40 mg tablet,delayed release (DR/EC) Discontinued 40 MG PO Daily October 08, 2023 12:00am October 18, 2023 2:28pm FreeTextSi tablet Orally Once a day; Note: Source Status: Taking; Refills: 3; Qty: 90 Tablet; Provider: Golden Gold Start: 09-29-2023 End: 01-18-2025 take 1 tablet by mouth once daily Pantoprazole 40 mg tablet,delayed release (DR/EC) Discontinued 0 .ROUTE .COMPLEX 90 September 29, 2023 8:46am January 18, 2025 9:26am TAKE 1 TABLET BY MOUTH EVERY DAY FOR 90 DAYS Start: 08-06-2022 End: 09-29-2023 take 1 tablet by mouth once daily Pantoprazole 40 mg tablet,delayed release (DR/EC) Discontinued 40 MG PO Daily September 28, 2023 12:00am September 29, 2023 8:47am take 1 tablet by margoth once daily Pantoprazole Sodium 20 MG Oral Tablet Delayed Release TAKE 1 TABLET DAILY. Quantity: 0 Refills: 0 Ordered: 20-Apr-2022 DO Active potassium chloride 20 meq extended release oral tablet (10 sources) Start: 04-20-2022 take 2 tablets by mouth once daily Potassium Chloride ER 20 MEQ Oral Tablet Extended Release TAKE 2 TABLET Daily Quantity: 180 Refills: 1 Ordered: 31-Aug-2022 Marissa Iglesias MD Start : 20-Apr-2022 Active new start take 1 tablet by mouth in the mo rning KLOR-CON M20 20 mEq CR tablet Take 1 tablet (20 mEq total) by mouth in the morning. Active primidone 50 mg oral tablet (16 sources) Anti-epileptic Agent Start: 10-08-2023 End: 10-18-2023 take 1 tablet by mouth once daily Primidone 50 mg tablet Discontinued 50 MG PO Daily October 08, 2023 12:00am October 18, 2023 2:28pm FreeTextSi tablet Orally Once a day; Note: Source Status: Not-TakingundefinedPRN; Provider: Golden Sullivan ( ) take 1 tablet by [facility] every twenty-four hours Primidone 50 MG 1 tablet Orally Once a d ay Not-Taking/PRN pseudoephedrine hydrochloride 30 mg oral tablet (16 sources) alpha-Adrenergic Agonist Start: 10-08-2023 End: 10-18-2023 take 2 tablets by mouth every six hours as needed Pseudoephedrine Hcl 30 mg tablet Discontinued 60 MG PO Every 6 hours October 08, 2023 12:00am October 18, 2023 2:29pm FreeTextSi tablets as needed Orally every 6 hrs; Note: Source Status: Not-Takingundefined PRN; Provider: Golden Sullivan ( ) take 2 tablets by [facility] every six hours Sudafed 30 MG 2 tablets as needed Orally every 6 hrs Not-Taking/PRN raNITIdine 150 mg oral capsule (1 source) Histamine-2 Receptor Antagonist Ranitidine HCl 150 m g capsule Take 150 mg by mouth as needed. 0 Active Comment on above: Take 150 mg by mouth as needed. Stool Softener TABS (3 sources) Stool Softener T ABS TAKE 2 TABLET Daily Quantity: 0 Refills: 0 Ordered: 01-Jun-2022 DO Active 1 ml triamcinolone acetonide 40 mg/ml injection (4 sources) Corticosteroid Start: 09-13-2023 End: 09-13-2023 triamcinolone acetonide (KENALOG-40) injection 20 mg Start: 09-13-2023 End: 09-13-2023 20 mg, intra-articular, Once , On Wed09/13/23 at 1330, For 1 dose Start: 06-10-2023 End: 06-10-2023 triamcinolone acetonide (JAIRON ALOG-40) injection 20 mg Start: 06-10-2023 End: 06-10-2023 triamcinolone acetonide (JAIRON ALOG-40) injection 20 mg varenicline 1 mg oral tablet (20 sources) Partial Cholinergic Nicotinic Agonist Start: 12-27-2023 End: 01-18-2025 take 1 tablet by mouth twice daily Varenicline Tartrate 1 mg tablet Discontinued 0 .ROUTE .COMPLEX December 27, 2023 3:37pm January 18, 2025 9:27am TAKE 1 TABLET BY MOUTH TWICE A DAY Start: 10-22-2023 End: 12-27-2023 take 1 tablet by mouth twice daily Varenicline Tartrate 1 mg tablet Discontinued 1 MG PO Twice daily 56 October 22, 2023 8:36am December 27, 2023 3:37pm Start: 10-08-2023 End: 10-22-2023 take 1 tablet by mouth once daily Varenicline Tartrate 1 mg tablet Discontinued 1 MG PO Once October 08, 2023 12:00am October 22, 2023 8:36am FreeTextSig: TAKE 1 TABLET BY MOUTH ONCE A DAY WITH A FULL GLASS OF WATER AFTER EATING; Note: Source Status: Refill; Refills: 1; Qty: 30 Tablet; Provider: Golden Gold Start: 08-06-2022 take 1 tablet by margoth once daily APO-Varenicline 0.5 MG 1 tablet after eating with a full glass of water Orally Once a day for 30 days Aug, Active take 1 tablet by margoth th once daily Varenicline Tartrate 1 MG TAKE 1 TABLET BY MOUTH ONCE A DAY WITH A FULL GLASS OF WATER AFTER EATING for 30 Active take 5 mg by mouth once daily va renicline tartrate (VARENICLINE ORAL) Take 5 mg by mouth once daily. Take with full glass of water. Active take 5 mg by mouth once daily va renicline tartrate (VARENICLINE ORAL) Take 5 mg by mouth once daily. Take with full glass of water. 0 Active Chantix 1 MG TAB S TAKE 1 TABLET TWICE DAILY. Quantity: 0 Refills: 0 Ordered: 20-Apr-2022 DO Active vitamin b6 100 mg oral tablet (9 sources) Start: 10-08-2023 End: 01-18-2025 take 1 tablet by mouth two times weekly Pyridoxine (Vitamin B6) 100 mg tablet Discontinued 100 MG PO Twice a Week October 08, 2023 12:00am January 18, 2025 9:27am Vitamin B6 Activ e Problems Active Problems Problem Classification Problem Date Documented Da te Episodic/Chronic Abdominal pain (9 sources) Epigastric pain; Translations: [Epigastric pain] 10-18-2023 Episodic Administrative/social admission (3 sources) Follow-up status; [...] [Dizziness and giddiness] Onset: 2 01-09-2016 Episodic Diabetes mellitus with complications (3 sources) Hyperglycemia due to type 2 diabetes mellitus; Translations: [Type 2 diabetes mellitus with hyperglycemia] 06-16-2023 Chronic Disorders of lipid metabolism (5 sources) Hyperlipidemia; [...] sources) Hematochezia; Translations: [Blood in stool] Episodic Genitourinary symptoms and ill-defined conditions (2 sources) Blood in urine; Translations: [Hematuria, unspecified] 10-18-2023 Episodic Headache; including migraine (14 sources) Migraine; Translations: [Migraine, unspecified, not intractable, without status migrainosus] Onset: 6 01-09-2016 Chronic Malaise and fatigue (2 sources) Fatigue; Translations: [Other fatigue] 01-18-2025 Episodic Nausea and vomiting (7 sources) Nausea; Translations: [Nausea] Episodic Other aftercare (1 source) 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; Translations: [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] Onset: 3 Episodic [...] conditions (not mental disorders or infectious disease) (16 sources) Patient encounter status; Translations: [Screening for lipoid disorders] Onset: 3 Episodic Other skin disorders (1 source) Dyshidrosis [pompholyx] Episodic Residual codes; unclassified (10 sources) Obstructive sleep apnea syndrome; Translations: [Obstructive sleep apnea (adult) (pediatric)] Chronic Spondylosis; intervertebral disc disorders; other back problems (3 sources) Neck pain; Translations: [Cervicalgia] 01-09-2016 Episodic Substance-related disorders (20 sources) Smoker; Translations: [Nicotine dependence, unspecified, uncomplicated] Onset: 3 01-09-2016 Chronic Superficial injury; contusion (2 sources) Insect bite of trunk; Translations: [Insect bite (nonvenomous) of unspecified back wall of thorax, initial encounter] 01-03-2025 Episodic Syncope (9 sources) Near syncope; Translations: [Syncope and collapse] Onset: 3 Episodic Thyroid disorders (2 sources) Goiter; 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 Unclassified (1 source) Procedure Onset: 4 Viral infection (1 source) Herpesviral vesicular dermatitis Episodic Past or Other Problems Problem Classification Problem Date Documented Da te Episodic/Chronic Mood disorders (5 sources) Mood disorders Onset: 03-04-2023 Resolved: 09-13-2023 03-04-2023 Other aftercare (3 sources) Other skilled nursing (current) drug therapy; Translations: [OTH LONG-TERM CURRENT DRUG THERAPY] Onset: 09-09-2022 Episodic Other circulatory disease (2 sources) Hypotension, unspecified; Translations: [Hypotension, unspecified] Onset: 01-22-2023 Episodic Other connective tissue disease (2 sources) Neuropathy; Translations: [Neuralgia and neuritis, unspecified] 06-10-2023 Episodic Unclassified (8 sources) Patient status finding; Translations: [Patient new to provider] Resolved: 06-01-2022 Unclassified (5 sources) Onset: 07-01-2021 07-01-2021 Results Test Name Value Interpretation Reference Range Facility CBC AUTO DIFFon 09-07-2022 BASO # 0.1 103/ul Normal 0.0-0.1 [facility] Comment on above: Performed By: #### C BC #### [facility] [address] [address] [address] Ismael Kenney Basophils/100 WBC (Bld) 0.4 % Normal 0.2-2.0 [facility] Comment on above: Performed By: #### C BC #### [facility] [address] [place] [address] Dr. Ismael Kenney EO # 0.2 103/ul Normal 0.0-0.7 [facility] Comment on above: Performed By: #### C BC #### [facility] [address] [address] [address] Ismael Kenney Eosinophils/100 WBC (Bld) 1.5 % Normal 0.9-7.0 [facility] Comment on above: Performed By: #### C BC #### [facility] [address] [place] [address] Dr. Ismael Kenney Erythrocyte distribution width (RBC) [Ratio] 15.7 % Critically high 11.0-15.0 [facility] Comment on above: Performed By: #### C BC #### [facility] [address] [place] [address] Dr. Ismael Kenney Hematocrit (Bld) [Volume fraction] 43.7 % Normal 36.0-48.0 [facility] Comment on above: Performed By: #### C BC #### [facility] [address] [address] [address] Ismael Kenney Hemoglobin (Bld) [Mass/Vol] 13.9 g/dL Normal 12.0-16.0 [facility] Comment on above: Performed By: #### C BC #### [facility] [address] [place] [address] Dr. Ismael Kenney IG # 0.04 10e3/ul Critically high 0.00-0.03 [facility] Comment on above: Performed By: #### C BC #### [facility] [address] [place] [address] Dr. Ismael Kenney IG % 0.3 % Normal 0.0-0.5 [facility] Comment on above: Performed By: #### C BC #### [facility] [address] [place] [address] Dr. Ismael Kenney LYMPH # 3.4 103/ul Normal 1.2-3.8 [facility] Comment on above: Performed By: #### C BC #### [facility] [address] [place] [address] Dr. Ismael Kenney Lymphocytes/100 WBC (Bld) 27.6 % Normal 20.5-60.0 [facility] Comment on above: Performed By: #### C BC #### [facility] [address] [place] [address] Dr. Ismael Kenney MANUAL DIFF REQ NO Normal [facility] Comment on above: Performed By: #### C BC #### [facility] [address] [place] [address] Dr. Ismael Kenney MCH (RBC) [Entitic mass] 25.9 pg Critically low 26.7-34.0 [facility] Comment on above: Performed By: #### C BC #### [facility] [address] [place] [address] Dr. Ismael Kenney MCHC (RBC) [Mass/Vol] 31.8 g/dL Normal 29.9-35.2 [facility] Comment on above: Performed By: #### C BC #### [facility] [address] [place] [address] Dr. Ismael Kenney MCV (RBC) [Entitic vol] 81.4 fL Normal 81.0-99.0 [facility] Comment on above: Performed By: #### C BC #### [facility] [address] [place] [address] Dr. Ismael Kenney MONO # 0.8 103/ul Normal 0.3-0.8 [facility] Comment on above: Performed By: #### C BC #### [facility] [address] [place] [address] Dr. Ismael Kenney Monocytes/100 WBC (Bld) 6.4 % Normal 1.7-12.0 [facility] Comment on above: Performed By: #### C BC #### [facility] [address] [place] [address] Dr. Ismael Kenney NEUT # 7.9 103/ul Critically high 1.4-6.5 [facility] Comment on above: Performed By: #### C BC #### [facility] [address] [place] [address] Dr. Ismael Kenney Neutrophils/100 WBC (Bld) 63.8 % Normal 43.0-75.0 [facility] Comment on above: Performed By: #### C BC #### [facility] [address] [place] [address] Dr. Ismael Kenney Platelet mean volume (Bld) [Entitic vol] 10.0 fL Normal 9.5-13.5 [facility] Comment on above: Performed By: #### C BC #### [facility] [address] [place] [address] Dr. Ismael Kenney PLT 402 103/ul Normal 150-450 [facility] Comment on above: Performed By: #### C BC #### [facility] [address] [place] [address] Dr. Ismael Kenney RBC 5.37 106/ul Normal 4.20-5.40 [facility] Comment on above: Performed By: #### C BC #### [facility] [address] [place] [address] Dr. Ismael Kenney WBC 12.4 103/ul Critically high 4.0-11.0 [facility] Comment on above: Performed By: #### C BC #### [facility] [address] [place] [address] Dr. Ismael Kenney MAGNESIUMon 09-07-2022 Magnesium [Mass/Vol] 2.2 mg/dL Normal 1.8-2.4 [facility] Comment on above: Performed By: #### M G #### [facility] [address] [place] [address] Dr. Ismael Kenney POINT OF CARE GLUCOSEon Glucose [Mass/Vol] 85 mg/dL Normal 74-106 [facility] Comment on above: Performed By: #### P OCGLUC #### [facility] [address] [place] [address] Dr. Ismael Kenney PROF 14(COMP METB)on 023 Albumin [Mass/Vol] 3.6 g/dL Normal 3.4-5.0 [facility] Comment on above: Performed By: #### T SH, CMP, HSTROPN #### [facility] [address] [place] [address] Dr. Ismael Kenney Albumin/Globulin [Mass ratio] 0.9 {ratio} Normal [facility] Comment on above: Performed By: #### T SH, CMP, HSTROPN #### [facility] [address] [place] [address] Dr. Imsael Kenney ALP [Catalytic activity/Vol] 100 U/L Normal 46-116 [facility] Comment on above: Performed By: #### T SH, CMP, HSTROPN #### [facility] [address] [place] [address] Dr. Ismael Kenney ALT [Catalytic activity/Vol] 31 U/L Normal 14-59 [facility] Comment on above: Performed By: #### T SH, CMP, HSTROPN #### [facility] [address] [place] [address] Dr. Ismael Kenney Anion gap [Moles/Vol] 12.1 mmol/L Normal [facility] Comment on above: Performed By: #### T SH, CMP, HSTROPN #### [facility] [address] [place] [address] Dr. Ismael Kenney AST [Catalytic activity/Vol] 23 U/L Normal 15-37 [facility] Comment on above: Performed By: #### T SH, CMP, HSTROPN #### [facility] [address] [address] [address] Ismael Kenney Bilirubin [Mass/Vol] 0.2 mg/dL Normal 0.2-1.0 [facility] Comment on above: Performed By: #### T SH, CMP, HSTROPN #### [facility] [address] [address] [address] Ismael Kenney Calcium [Mass/Vol] 9.4 mg/dL Normal 8.5-10.1 [facility] Comment on above: Performed By: #### T SH, CMP, HSTROPN #### [facility] [address] [place] [address] Dr. Ismael Kenney Chloride [Moles/Vol] 104 mmol/L Normal 98-107 [facility] Comment on above: Performed By: #### T SH, CMP, HSTROPN #### [facility] [address] [place] [address] Dr. Ismael Kenney CO2 [Moles/Vol] 28.4 mmol/L Normal 21.0-32.0 [facility] Comment on above: Performed By: #### T SH, CMP, HSTROPN #### [facility] [address] [place] [address] Dr. Ismael Kenney Creatinine [Mass/Vol] 1.03 mg/dL Critically high 0.55-1.02 [facility] Comment on above: Performed By: #### T SH, CMP, HSTROPN #### [facility] [address] [place] [address] Dr. Ismael Kenney EGFR-AF BRAZILIAN >60 Normal >=60 [facility] Comment on above: Performed By: #### T SH, CMP, HSTROPN #### [facility] [address] [place] [address] Dr. Ismael Kenney EGFR-NON AF BRAZILIAN 56 mL/min/1.73m2 Critically low >=60 [facility] Comment on above: Performed By: #### T SH, CMP, HSTROPN #### [facility] [address] [place], [place] [address] Dr. Ismael Kenney Globulin (S) [Mass/Vol] 4.2 g/dL Normal [facility] Comment on above: Performed By: #### T SH, CMP, HSTROPN #### [facility] [address] [place] [address] Dr. Ismael Kenney Glucose [Mass/Vol] 76 mg/dL Normal 74-106 [facility] Comment on above: Performed By: #### T SH, CMP, HSTROPN #### [facility] [address] [place] [address] Dr. Ismael Kenney Potassium [Moles/Vol] 4.5 mmol/L Normal 3.5-5.1 [facility] Comment on above: Performed By: #### T SH, CMP, HSTROPN #### [facility] [address] [place] [address] Dr. Ismael Kenney Protein [Mass/Vol] 7.8 g/dL Normal 6.4-8.2 [facility] Comment on above: Performed By: #### T SH, CMP, HSTROPN #### [facility] [address] [place] [address] Dr. Ismael Kenney Sodium [Moles/Vol] 140 mmol/L Normal 136-145 [facility] Comment on above: Performed By: #### T SH, CMP, HSTROPN #### [facility] [address] [place] [address] Dr. Ismael Kenney Urea nitrogen [Mass/Vol] 21.0 mg/dL Critically high 7.0-18.0 [facility] Comment on above: Performed By: #### T SH, CMP, HSTROPN #### [facility] [address] [address] [address] Ismael Kenney Urea nitrogen/Creatinin e [Mass ratio] 20.4 mg/mg Normal [facility] Comment on above: Performed By: #### T SH, CMP, HSTROPN #### [facility] [address] [place] [address] Dr. Ismael Kenney PROTIMEon 09-07-2022 INR Coag (PPP) [Relative time] {INR} Normal [facility] Comment on above: Performed By: #### P TT, PT #### [facility] [address] [place] [address] Dr. Ismael Kenney INR GUIDELINES SEE BELOW Normal [facility] Comment on above: Result Comment: BEVERLEY RED INR: 2.0 - 3.0 CONDITIONS NOT LISTED BELOW 2.5 - 3.5 FOR PROSTHETIC HEART VALVE REPLACEMENT 2.5 - 3.5 RECURRENT THROMBOSIS Performed By: #### P TT, PT #### [facility] [address] [place] [address] Dr. Ismael Kenney PT Coag (PPP) [Time] 9.6 s Normal 9.0-11.6 [facility] Comment on above: Performed By: #### P TT, PT #### [facility] [address] [place] [address] Dr. Ismael Kenney PTTon 09-07-2022 aPTT Coag (Bld) [Time] 29.5 s Normal 22.3-36.2 [facility] Comment on above: Performed By: #### P TT, PT #### [facility] [address] [place] [address] Dr. Ismael Kenney TROPONIN, HIGH SENSITIVITYon 09-07-2022 HSTROP 5.6 pg/mL Normal 4.0-51.3 [facility] Comment on above: Result Comment: CUT- OFF POINTS HAVE BEEN ESTABLISHED BASED ON THE FOURTH UNIVERSAL DEFINITIONS OF MYOCARDIAL INFARCTION. THE UPPER REFERENCE LIMIT (URL) OF TROPONIN, DEFINED THE 99TH PERCENTILE OF cTnI DISTRIBUTION IN A REFERENCE POPULATION, HAS BEEN CONFIRMED THE DECISION THRESHOLD FOR MS DIAGNOSIS. Performed By: #### T SH, CMP, HSTROPN #### [facility] [address] [place] [address] Dr. Ismael Kenney TSHon 09-07-2022 TSH 1.639 uIU/mL Normal 0.358-3.740 [facility] Comment on above: Performed By: #### T SH, CMP, HSTROPN #### [facility] [address] [place] [address] Dr. Ismael Kenney Office Visit (Cardiology)on 08-31-2022 [...] we can help. You may also call 3-034-UCSX-NOW for free resources and assistance.; Status:Complete - Retrospective Authorization; Done: [id number] Patient Instructions Please bring all medicines, vitamins, [...] with significant (more content not included)... Normal [employer] Tobacco Screening.on 023 Tobacco use status CP a) Yes -[facility] [employer] 250 DO Work Phone: Tobacco Screening. Yes -[facility] 250 DO Work Phone: Office Visit (Cardiology)on [...] we can help. You may also call 5-391-GJLPWaddleNOW for free resources and assistance.; Status:Complete - [...] Tubal liga (more content not included)... Normal [employer] Tobacco Screening.on 023 Adult depression screening assessment No [facility] [employer] 250 DO Work Phone: Fall risk assessment a) No falls within the last year [facility] 250 DO Work Phone: Tobacco use status CPHS a) Yes [facility] 250 DO Work Phone: Tobacco Screening. Yes [facility] 250 DO Work Phone: CA tilt table teston 023 CA tilt table test [facility] [place] [address] [place] [id number] Cardiology Report Signed Patient: Elias Heller MR#: [id number] 72 : 1965 Acct:[id number] Age/Sex: 56 / F ADM Date: 05/20/22 Loc: Room: Type: [facility] Attending Dr: Marissa Iglesias MD Copies to: [...] continue her long-term followup with her primary logger all round, Dr. Iglesias. Transcribed By: NTS 05/20/22 1548 Dictated By: Jaquelin Christie MD 05/20/22 1139 Signed By: 05/21/22 0946 [facility] No Panel Informationon 05-[address] [address] DO Work Phone: LIPID PROFILEon 05-05-2022 CHOL-HDL RATIO NORM SEE BELOW Normal [facility] Comment on above: Result Comment: 3.3 - 4.4 LOW RISK 4.4 - 7.1 AVERAGE RISK 7.1 - 11.0 MODERATE RISK >11.0 HIGH RISK Performed By: #### L IPID, BMP #### [facility] [address] [address] [address] Ismael Kenney Cholesterol [Mass/Vol] 226 mg/dL Critically high <=200 [facility] Comment on above: Performed By: #### L IPID, BMP #### [facility] [address] [address] [address] Ismael Kenney Cholesterol in HDL [Mass/Vol] 62 mg/dL Critically high 40-60 [facility] Comment on above: Performed By: #### L IPID, BMP #### [facility] [address] [address] [address] Ismael Kenney Cholesterol in LDL [Mass/Vol] 143.4 mg/dL Normal [facility] Comment on above: Performed By: #### L IPID, BMP #### [facility] [address] [address] [address] Ismael Kenney Cholesterol.total/ Cholesterol in HDL [Mass ratio] 3.6 {ratio} Normal [facility] Comment on above: Performed By: #### L IPID, BMP #### [facility] [address] [address] [address] Ismael Kenney HDL NORMAL > or = 60 mg/dl - LO W CARDIOVASCULAR RISK <40 mg/dl - HIGH CARDIOVASCULAR RISK Normal [facility] Comment on above: Performed By: #### L IPID, BMP #### [facility] [address] [address] [address] Ismael Kenney LDL CALC NORMAL SEE BELOW Normal [facility] Comment on above: Result Comment: <100 mg/dl OPTIMAL 100 - 129 mg/dl NEAR OR ABOVE OPTIMAL 130 - 159 mg/dl BORDERLINE HIGH 160 - 189 mg/dl HIGH >190 mg/dl VERY HIGH Performed By: #### L IPID, BMP #### [facility] [address] [address] [address] Ismael Kenney Triglyceride [Mass/Vol] 103 mg/dL Normal <=150 [facility] Comment on above: Performed By: #### L IPID, BMP #### [facility] [address] [place] [address] Dr. Ismael Kenney VLDL CALC 20.6 mg/dL Normal [facility] Comment on above: Performed By: #### L IPID, BMP #### [facility] [address] [place] [address] Dr. Ismael Kenney PROF CHEM 8 (BAS METB)on Anion gap [Moles/Vol] 11.2 mmol/L Normal [facility] Comment on above: Performed By: #### L IPID, BMP #### [facility] [address] [place] [address] Dr. Ismael Kenney Calcium [Mass/Vol] 9.0 mg/dL Normal 8.5-10.1 [facility] Comment on above: Performed By: #### L IPID, BMP #### [facility] [address] [place] [address] Dr. Ismael Kenney Chloride [Moles/Vol] 105 mmol/L Normal 98-107 [facility] Comment on above: Performed By: #### L IPID, BMP #### [facility] [address] [place] [address] Dr. Ismael Kenney CO2 [Moles/Vol] 31.1 mmol/L Normal 21.0-32.0 [facility] Comment on above: Performed By: #### L IPID, BMP #### [facility] [address] [place] [address] Dr. Ismael Kenney Creatinine [Mass/Vol] 0.92 mg/dL Normal 0.55-1.02 [facility] Comment on above: Performed By: #### L IPID, BMP #### [facility] [address] [place] [address] Dr. Ismael Kenney EGFR-AF BRAZILIAN >60 Normal >=60 [facility] Comment on above: Performed By: #### L IPID, BMP #### [facility] [address] [place] [address] Dr. Ismael Kenney EGFR-NON AF BRAZILIAN >60 Normal >=60 [facility] Comment on above: Performed By: #### L IPID, BMP #### [facility] [address] [place] [address] Dr. Ismael Kenney Glucose [Mass/Vol] 98 mg/dL Normal 74-106 [facility] Comment on above: Performed By: #### L IPID, BMP #### [facility] [address] [place] [address] Dr. Ismael Kenney Potassium [Moles/Vol] 4.3 mmol/L Normal 3.5-5.1 [facility] Comment on above: Performed By: #### L IPID, BMP #### [facility] [address] [place] [address] Dr. Ismael Kenney Sodium [Moles/Vol] 143 mmol/L Normal 136-145 [facility] Comment on above: Performed By: #### L IPID, BMP #### [facility] [address] [place] [address] Dr. Ismael Kenney Urea nitrogen [Mass/Vol] 19.0 mg/dL Critically high 7.0-18.0 [facility] Comment on above: Performed By: #### L IPID, BMP #### [facility] [address] [place] [address] Dr. Ismael Kenney Urea nitrogen/Creatinin e [Mass ratio] 20.7 mg/mg Normal [facility] Comment on above: Performed By: #### L IPID, BMP #### [facility] [address] [place] [address] Dr. Ismael Kenney Office Visit (Cardiology)on 04-20-2022 [...] in adult Healthy Weight Tips; Status:Complete; Done: [id number] Some eating tips that can help you lose weight.; Status:Complete; Done: [id number] Hypokalemia Start: Potassium Chloride ER 20 MEQ Oral Tablet Extended Release; TAKE 2 TABLET Daily Hypokalemia, Stage 3a chronic kidney disease Basic Metabolic Panel; Status:Active; Requested for:[id number]; Palpitations Start: Magnesium 400 MG Oral Tablet; Take 1 tablet twice daily IO EKG Electrocardiogram- 12 Lead; Status:Complete; Done: [id number] Pre-syncope Tilt Table; Status:Hold For - Scheduling; Requested for:[id number]; Screening for hyperlipidemia Lipid Panel; Status:Active; Requested for:[id number]; SocHx: Current smoker Tobacco Use Screening; Status:Complete; Done: [id number] You need to quit smoking.; Status:Complete; Done: [id number] Tobacco Use Screening; Status:Complete; Done: [id number] You need to stop smoking. Though it is not easy, more than half of all adult smokers have quit. We encourage you to write down all the reasons you should quit smoking and set a quit date for yourself. Ask us how we can help. You may also call 3-273-DJSJ-NOW for free resources and assistance.; Status:Complete; Done: [id number] Tobacco Use Screening; Status:Complete; Done: [id number] Patient Instructions Please bring all medicines, vitamins, [...] EKG today normal sinus rhythm at 85 AK interval 148 ms QRS duration 80 ms [...] Screening.on 022 Adult depression screening assessment No [facility] 250 DO Work Phone: Tobacco use status CPHS a) Yes [facility] 250 DO Work Phone: Tobacco Screening. Yes [facility] 250 DO Work Phone: CNOVon 01-22-2022 CNOV Office Visit ([facility] ) -------- ELIAS HELLER ([id number]) 1965 F Date Time Provider Department 01/22/22 1:00 PM KYLE WATSON [facility] During your visit today, we recorded the following information about you: Pulse Blood pressure Weight Height 67/minute 100/71 83.9 kg 1.6 m Kyle Watson MD 01/22/2022 1:50 PM Signed INITIAL CONSULT - HEADACHE MEDICINE SERVICE DATE: January 22, 2022 Location: [facility] Participants: patient, adult daughter and provider Requesting Provider: Recommendations of care will be communicated by shared medical record. Member Name Role and Specialty Contact Info Address Comments Laurie Spicer MD Referring [address] [facility] [id number] - Subjective HPI: Elias Heller is a [...] giving h (more content not included)... Normal [facility] Vital Signs Date Time Vital Sign Value Performing Clinician Facility 01-18-2025 09:20-0400 Body height 160.02 cm Laurie Spicer MD Work Phone: [facility] 01-18-2025 09:20-0400 Body mass index (BMI) [Ratio] 37 kg/m2 Laurie Spicer MD Work Phone: [facility] 01-18-2025 09:20-0400 Body weight 94.91 kg Laurie Spicer MD Work Phone: [facility] 01-18-2025 09:20-0400 Diastolic blood pressure 76 mm[Hg] Laurie Spicer MD Work Phone: [facility] 01-18-2025 09:20-0400 Heart rate 70 /min Laurie Spicer MD Work Phone: [facility] 01-18-2025 09:20-0400 Systolic blood pressure 118 mm[Hg] Laurie Spicer MD Work Phone: [facility] 09-13-2023 12:44-0400 Body height 160 cm [facility] 09-13-2023 12:44-0400 Body mass index (BMI) [Ratio] 33.86 kg/m2 [facility] 09-13-2023 12:44-0400 Body weight 86.68 kg Alexei Galvan MD Work Phone: [facility] 09-13-2023 12:44-0400 Diastolic blood pressure 78 mm[Hg] [facility] 09-13-2023 12:44-0400 Heart rate 78 /min Alexei Galvan MD Work Phone: [facility] 09-13-2023 12:44-0400 Systolic blood pressure 134 mm[Hg] Alexei Galvan MD Work Phone: [facility] 06-11-2023 10:30-0500 Body height 160.02 cm Karlene Wang Other [facility] Other 06-11-2023 10:30-0500 Body mass index (BMI) [Ratio] 34.01 kg/m2 Karlene Wang Other [facility] Other 06-11-2023 10:30-0500 Body weight 87.09 kg Karlene Wang Other [facility] Other 06-11-2023 10:30-0500 Diastolic blood pressure 80 mm[Hg] Karlene Felipe Other [facility] Other 06-11-2023 10:30-0500 SaO2% (BldA) [Mass fraction] 96 % Karlene Felipe Other [facility] Other 06-11-2023 10:30-0500 Systolic blood pressure 116 mm[Hg] Karlene Felipe Other [facility] Other 06-10-2023 12:00-0500 Body height 160 cm Alexei Galvan MD Work Phone: [employer] 06-10-2023 12:00-0500 Body mass index (BMI) [Ratio] 34.02 kg/m2 Alexei Galvan MD Work Phone: [employer] 06-10-2023 12:00-0500 Body weight 87.09 kg Alexei Galvan MD Work Phone: [employer] 06-10-2023 12:00-0500 Diastolic blood pressure 69 mm[Hg] Alexei Galvan MD Work Phone: [employer] 06-10-2023 12:00-0500 Heart rate 78 /min Alexei Galvan MD Work Phone: [employer] 06-10-2023 12:00-0500 Systolic blood pressure 120 mm[Hg] Alexei Galvan MD Work Phone: [employer] 02-15-2023 09:15-0400 Body height 160.02 cm Laurie Spicer Other [facility] Other 02-15-2023 09:15-0400 Body mass index (BMI) [Ratio] 34.72 kg/m2 Laurie Spicer Other [facility] Other 02-15-2023 09:15-0400 Body weight 88.91 kg Laurie Spicer Other [facility] Other 02-15-2023 09:15-0400 Diastolic blood pressure 78 mm[Hg] Laurie Spicer Other [facility] Other 02-15-2023 09:15-0400 Systolic blood pressure 116 mm[Hg] Laurie Spicer Other [facility] Other 12-31-2022 10:15-0400 Body height 160.02 cm Laurie Spicer Other [facility] Other 12-31-2022 10:15-0400 Body mass index (BMI) [Ratio] 34.65 kg/m2 Laurie Spicer Other [facility] Other 12-31-2022 10:15-0400 Body weight 88.72 kg Luarie Spicer Other [facility] Other 12-31-2022 10:15-0400 Diastolic blood pressure 75 mm[Hg] Laurie Spicer Other [facility] Other 12-31-2022 10:15-0400 Systolic blood pressure 111 mm[Hg] Laurie Spicer Other [facility] Other 09-10-2022 14:15-0400 Body height 160.02 cm Laurie Spicer Other [facility] Other 09-10-2022 14:15-0400 Body mass index (BMI) [Ratio] 34.18 kg/m2 Laurie Spicer Other [facility] Other 09-10-2022 14:15-0400 Body weight 87.54 kg Laurie Spicer Other [facility] Other 09-10-2022 14:15-0400 Diastolic blood pressure 72 mm[Hg] Laurie Spicer Other [facility] Other 09-10-2022 14:15-0400 SaO2% (BldA) [Mass fraction] 99 % Laurie Spicer Other [facility] Other 09-10-2022 14:15-0400 Systolic blood pressure 112 mm[Hg] Laurie Spicer Other [facility] Other 08-31-2022 08:55-0400 Diastolic blood pressure 80 mm[Hg] Laurie Spicer Work Phone: [employer] [place] 250 DO Work Phone: 08-31-2022 08:55-0400 Systolic blood pressure 124 mm[Hg] Laurie Spicer Work Phone: [employer] [place] 250 DO Work Phone: 08-31-2022 08:52-0400 Body height 160.02 cm Laurie Spicer Work Phone: [employer] [place] 250 DO Work Phone: 08-31-2022 08:52-0400 Body mass index (BMI) [Ratio] 34.72 kg/m2 Laurie Spicer Work Phone: [employer] [place] 250 DO Work Phone: 08-31-2022 08:52-0400 Body surface area Derived from formula 1.92 m2 Laurie Spicer Work Phone: [employer] [place] 250 DO Work Phone: 08-31-2022 08:52-0400 Body weight 88.91 kg Laurie Spicer Work Phone: [employer] [place] 250 DO Work Phone: 08-31-2022 08:52-0400 Diastolic blood pressure 84 mm[Hg] Laurie Spicer [facility] Phone: [facility] [employer] 250 DO Work Phone: 08-31-2022 08:52-0400 Heart rate 84 /min Laurie Spicer Work Phone: [facility] [employer] 250 DO Work Phone: 08-31-2022 08:52-0400 Systolic blood pressure 128 mm[Hg] Laurie Spicer Work Phone: [facility] [employer] [facility] DO Work Phone: 06-09-2022 10:15-0500 Body height 160.02 cm Laurie Spicer Other [facility] Other 06-09-2022 10:15-0500 Body mass index (BMI) [Ratio] 34.01 kg/m2 Laurie Spicer Other [facility] Other 06-09-2022 10:15-0500 Body weight 87.09 kg Laurie Spicer Other [facility] Other 06-09-2022 10:15-0500 Diastolic blood pressure 80 mm[Hg] Laurie Spicer Other [facility] Other 06-09-2022 10:15-0500 SaO2% (BldA) [Mass fraction] 99 % Laurie Spicer Other [facility] Other 06-09-2022 10:15-0500 Systolic blood pressure 114 mm[Hg] Laurie Spicer Other [facility] Other 06-01-2022 11:01-0500 Diastolic blood pressure 60 mm[Hg] Laurie Spicer Work Phone: [facility] 250 DO Work Phone: 06-01-2022 11:01-0500 Systolic blood pressure 114 mm[Hg] Laurie Spicer Work Phone: [facility] 250 DO Work Phone: 06-01-2022 10:31-0500 Body height 160.02 cm Laurie Spicer Work Phone: [facility] 250 DO Work Phone: 06-01-2022 10:31-0500 Body mass index (BMI) [Ratio] 33.83 kg/m2 Laurie Spicer Work Phone: [facility] 250 DO Work Phone: 06-01-2022 10:31-0500 Body surface area Derived from formula 1.9 m2 Laurie Spicer Work Phone: [facility] 250 DO Work Phone: 06-01-2022 10:31-0500 Body weight 86.64 kg Laurie Spicer Work Phone: [facility] 250 DO Work Phone: 06-01-2022 10:31-0500 Diastolic blood pressure 80 mm[Hg] Laurie Spicer Work Phone: [facility] 250 DO Work Phone: 06-01-2022 10:31-0500 Heart rate 80 /min Laurie Spicer Work Phone: [facility] 250 DO Work Phone: 06-01-2022 10:31-0500 Systolic blood pressure 120 mm[Hg] Laurie Spicer Work Phone: [facility] 250 DO Work Phone: 05-20-2022 11:15-0500 Diastolic blood pressure 74 mm[Hg] MD Jaquelin Christie Work Phone: [facility] 05-20-2022 11:15-0500 Heart rate 78 /min MD Jaquelin Christie Work Phone: [facility] 05-20-2022 11:15-0500 Systolic blood pressure 110 mm[Hg] MD Jaquelin Christie Work Phone: [facility] 05-20-2022 10:49-0500 SaO2% (BldA) [Mass fraction] 99 % MD Jaquelin Christie Work Phone: [facility] 05-05-2022 10:09-0500 143.4 1 Laurie Spicer Work Phone: [facility] 250 DO Work Phone: Comment on above: [facility] 05-05-2022 10:09-0500 67 1 Laurie Spicer Work Phone: [facility] 250 DO Work Phone: Comment on above: [id number] 04-20-2022 12:39-0500 Diastolic blood pressure 80 mm[Hg] Laurie Spicer Work Phone: [facility] 250 DO Work Phone: 04-20-2022 12:39-0500 Systolic blood pressure 114 mm[Hg] Laurie Spicer Work Phone: [facility] 250 DO Work Phone: 04-20-2022 12:38-0500 Body height 160.02 cm Laurie Spicer Work Phone: [facility] 250 DO Work Phone: 04-20-2022 12:38-0500 Body mass index (BMI) [Ratio] 33.19 kg/m2 Laurie Spicer Work Phone: [facility] 250 DO Work Phone: 04-20-2022 12:38-0500 Body surface area Derived from formula 1.88 m2 Laurie Spicer Work Phone: [facility] 250 DO Work Phone: 04-20-2022 12:38-0500 Body weight 85 kg Laurie Spicer Work Phone: [facility] 250 DO Work Phone: 04-20-2022 12:38-0500 Diastolic blood pressure 82 mm[Hg] Laurie Spicer Work Phone: [facility] 250 DO Work Phone: 04-20-2022 12:38-0500 Heart rate 85 /min Laurie Spicer Work Phone: [facility] 250 DO Work Phone: 04-20-2022 12:38-0500 Systolic blood pressure 118 mm[Hg] Laurie Spicer Work Phone: [facility] 250 DO Work Phone: Encounters Encounter Date Encounter Type Care Provider Facility Start: 01-18-2025 End: 01-18-2025 ambulatory Laurie Spicer MD Work Phone: [facility] Work Phone: Start: 01-18-2025 End: 01-18-2025 Patient encounter procedure Laurie Spicer MD -[facility] Work Phone: Start: 01-18-2025 End: 01-18-2025 Patient encounter status Laurie Spicer MD [facility] Start: 01-03-2025 End: 01-03-2025 ambulatory Laurie Spicer MD Work Phone: [facility] Work Phone: Start: 01-03-2025 End: 01-03-2025 Patient encounter procedure Laurie Spicer MD -[facility] Work Phone: Start: 07-06-2024 End: 07-06-2024 Telephone encounter [facility] Comment on above: Waitlist Maintenance Start: 10-04-2023 End: 10-04-2023 ambulatory [facility] Start: 09-15-2023 End: 09-15-2023 ambulatory Laurie Spicer Other [facility] Other Start: 09-15-2023 Telephone encounter Laurie Spicer [facility] Start: 09-13-2023 End: 09-13-2023 ambulatory [facility] Start: 09-13-2023 End: 09-13-2023 Patient encounter procedure Alexei Galvan MD Work Phone: [facility] Comment on above: Neuralgia and neurit is (Primary Dx); Chronic migraine without aura, intractable, with status migrainosus Start: 06-22-2023 Telephone encounter Diane [facility] Start: 06-11-2023 End: 06-11-2023 ambulatory Karlene Wang Other [facility] Other Start: 06-11-2023 Office outpatient vi sit 15 minutes Karlene Wang [facility] Start: 06-10-2023 End: 06-10-2023 [facility] Start: 06-10-2023 End: 06-10-2023 Patient encounter procedure Alexei Galvan MD Work Phone: [facility] Comment on above: Neuralgia and neurit is (Primary Dx); Chronic migraine without aura, intractable, with status migrainosus Start: 05-27-2023 Ophelia Galvan MD Work Phone: [facility] Comment on above: Chronic migraine wit hout aura, intractable, with status migrainosus Start: 05-24-2023 End: 05-24-2023 ambulatory Laurie Spicer Other [facility] Other Start: 05-24-2023 Telephone encounter Laurie Spicer [facility] Start: 04-06-2023 End: 04-06-2023 ambulatory Laurie Spicer Other [facility] Other Start: 04-06-2023 Telephone encounter Laurie Spicer [facility] Start: 03-02-2023 End: 03-02-2023 ambulatory Laurie Spicer Other [facility] Other Start: 03-02-2023 Telephone encounter Laurie Spicer [facility] Start: 02-26-2023 End: 02-26-2023 ambulatory Laurie Spicer Other [facility] Other Start: 02-26-2023 Telephone encounter Laurie Spicer [facility] Start: 02-22-2023 End: 02-22-2023 ambulatory [facility] Start: 02-15-2023 End: 02-15-2023 ambulatory Laurie Spicer Other [facility] Other Start: 02-15-2023 Office outpatient vi sit 15 minutes Laurie Spicer [facility] Start: 01-01-2023 End: 01-01-2023 ambulatory Laurie Spicer Other [facility] Other Start: 01-01-2023 Telephone encounter Laurie Spicer [facility] Start: 12-31-2022 End: 12-31-2022 ambulatory Laurie Spicer Other [facility] Other Start: 12-31-2022 Office outpatient vi sit 15 minutes Laurie Spicer [facility] Start: 11-16-2022 End: 11-16-2022 ambulatory Laurie Spicer Other [facility] Other Start: 11-16-2022 Telephone encounter Laurie Spicer [facility] Start: 09-10-2022 End: 09-10-2022 ambulatory Laurie Spicer Other [facility] Other Start: 09-10-2022 Office outpatient vi sit 15 minutes Laurie Spicer [facility] Start: 09-07-2022 End: 09-07-[address] SELENE RAMIREZ . Facility: Start: 09-03-2022 End: 09-03-2022 ambulatory Laurie Spicer Other [facility] Other Start: 09-03-2022 Telephone encounter Laurie Spicer [facility] Start: 08-31-2022 Office outpatient vi sit 15 minutes Laurie Spicer Work Phone: [facility] 250 DO Work Phone: Start: 08-31-2022 ambulatory Marissamaya Iglesias Facility:[id number] Start: 08-05-2022 End: 08-05-2022 ambulatory Laurie Spicer Other [facility] Other Start: 08-05-2022 Telephone encounter Laurie Spicer [facility] Start: 06-25-2022 Chart Update Laurie Spicer Work Phone: [facility] 250 DO Work Phone: Start: 06-09-2022 End: 06-09-2022 ambulatory Laurie Spicer Other [facility] Other Start: 06-09-2022 Office outpatient vi sit 15 minutes Laurie Spicer [facility] Start: 06-08-2022 End: 06-08-2022 ambulatory Laurie Spicer Other [facility] Other Start: 06-08-2022 Telephone encounter Laurie Spicer [facility] Start: 06-01-2022 Patient encounter procedure Laurie Spicer Work Phone: [facility] 250 DO Work Phone: Start: 06-01-2022 ambulatory Marissa Iglesias Facility:[id number] Start: 05-21-2022 Chart Update Laurie Spicer Work Phone: [facility] 250 DO Work Phone: Start: 05-20-2022 ambulatory Jaquelin Christie Faci lity:[id number] Start: 05-20-2022 End: 05-20-2022 ambulatory Laurie Spicer Facility:[facility] Start: 05-20-2022 End: 05-20-2022 ambulatory MD Jaquelin Christie Work Phone: [facility] Work Phone: Start: 05-20-2022 End: 05-20-2022 Patient encounter procedure MD Jaquelin Christie Work Phone: [facility] Work Phone: Start: 05-05-2022 End: 05-06-[address] DOCTOR WEBER Facility: Start: 04-20-2022 Office consultation new/estab patient 60 min Laurie Spicer Work Phone: [facility] 250 DO Work Phone: Start: 04-20-2022 Patient encounter procedure Laurie Spicer Work Phone: [facility] 250 DO Work Phone: Start: 04-20-[address] Laurie Spicer Facility: Start: 03-13-2022 ambulatory Marissa Iglesias Facility:[facility] Start: 01-22-2022 End: 01-22-2022 ambulatory KYLE WATSON Facility:[facility] Start: 11-06-2021 ambulatory Alyson Galaviz RN [facility] Start: 11-06-2021 Patient encounter procedure Alyson Galaviz RN [employer]URSE [employer] Comment on above: Referral Request Start: 10-16-2020 End: 10-17-2020 ambulatory Roderick THOMPSON Facility:[facility] Procedures Date Procedure Procedure Detail Performing Clinician Start: 09-13-2023 Adult depression scr eening assessment Alexei Galvan MD Work Phone: Start: 06-10-2023 Adult depression scr eening assessment Alexei Galvan MD Work Phone: Start: 03-04-2023 Adult depression scr eening assessment Alexei Galvan MD Work Phone: Ligation of fallopian tube M purvi Spicer Work Phone: Operative procedure on knee Laurie Spicer Work Phone: Tonsillectomy Laurie Spicer Work Phone: Plan of Treatment Date Care Activity Detail Author Start: 09-12-2024 Adult BMI Screening Adult BMI Screening [facility] Start: 09-12-2024 Depression Screening Depression Screening [facility] Start: 09-12-2024 Tobacco Screening Tobacco Screening [facility] Start: 06-10-2024 Adult BMI Screening Adult BMI Screening [facility] Start: 06-10-2024 Depression Screening Depression Screening [facility] Start: 06-10-2024 Tobacco Screening Tobacco Screening [facility] Start: 03-04-2024 Adult BMI Screening Adult BMI Screening [facility] Start: 03-04-2024 Depression Screening Depression Screening [facility] Start: 03-04-2024 Tobacco Screening Tobacco Screening [facility] Start: 01-02-2024 COVID-19 Vaccine ( season) COVID-19 Vaccine ( season) [facility] Start: 01-02-2024 Influenza vaccination Influenza Vaccine [facility] Start: 09-13-2023 End: 09-13-2023 Patient encounter procedure 09/13/2023 12:45 PM EDT Procedure visit [facility] [address] [place] [address], [place] [address] Alexei Galvan MD [address] [place] [address], [address] [place] [address] [facility] Start: 06-10-2023 End: 06-10-2023 Patient encounter procedure 06/10/2023 12:00 PM EST Procedure visit [facility] [address] [place] [id number] Alexei Galvan MD [address] [place] [address], [address] [place] [address] [facility] Start: 04-14-2023 DTaP,Tdap and Td Vaccines (2 - Tdap) DTaP,Tdap and Td Vaccines (2 - Tdap) [facility] Start: 02-22-2023 FUV, Provider: Marissa Iglesias, Status: Pen, Time: 9:15 AM [facility], Provider: Marissa Iglesias, Status: Pen, Time: 9:15 AM [facility] 250 DO Work Phone: Start: 01-01-2023 COVID-19 Vaccine ( season) COVID-19 Vaccine ( season) [facility] Start: 01-01-2023 Influenza vaccination Influenza Vaccine [facility] Start: 08-31-2022 FUV, Provider: Marissa Iglesias, Status: Pen, Time: 9:15 AM [facility], Provider: Marissa Iglesias, Status: Pen, Time: 9:15 AM [facility] 250 DO Work Phone: Start: 06-30-2022 Adult BMI Follow Up Plan Adult BMI Follow Up Plan [facility] Start: 06-01-2022 [facility]UV, Provider: Marissa Iglesias, Status: Pen, Time: 10:30 AM [facility], Provider: Marissa Iglesias, Status: Pen, Time: 10:30 AM [facility] [employer] 250 DO Work Phone: Start: 05-28-2022 [facility], Provider: Marissa Iglesias, Status: Pen, Time: 9:00 AM [facility], Provider: Marissa Iglesias, Status: Pen, Time: 9:00 AM [facility] [employer] 250 DO Work Phone: Start: 01-01-2022 Influenza vaccination INFLUENZA (#1) [facility] Start: 2016 Administration of varicella zoster vaccine Zoster (Shingles) Vaccine (1 of 2) [facility] Start: 2016 SHINGRIX VACCINE (1 of 2) SHINGRIX VACCINE (1 of 2) [facility] Start: 11-05-2011 COLOGUARD (FIT-DNA) COLOGUARD (FIT-DNA) [facility] Start: 11-05-2011 Colonoscopy COLONOSCOPY [facility] Start: 11-05-2011 COLORECTAL CANCER SCREENING COLORECTAL CANCER SCREENING [facility] Start: 11-05-[address] COLONOGRAPHY [facility] Start: 11-05-2011 DIABETES SCREEN DIABETES SCREEN [facility] Start: 11-05-2011 FECAL OCCULT BLOOD FECAL OCCULT BLOOD [facility] Start: 11-05-2011 LIPID SCREEN LIPID SCREEN [facility] Start: 11-05-2011 SIGMOIDOSCOPY SIGMOIDOSCOPY [facility] Start: 2006 Mammography MAMMOGRAM [facility] Start: 1996 HPV TESTING HPV TESTING [facility] Start: 11-05-1987 PAP TESTING PAP TESTING [facility] Start: 11-05-1987 Screening for malignant neoplasm of cervix Pap Smear [facility] Start: 1985 Urine microalbumin profile DTAP,TDAP,TD (1 - Tdap) [facility] Start: 1984 Adult BMI Follow Up Plan Adult BMI Follow Up Plan [facility] Start: 1984 HEPATITIS C SCREENING HEPATITIS C SCREENING [facility] Start: 1984 HIV SCREENING HIV SCREENING [facility] Start: 1978 Adult depression screening assessment DEPRESSION SCREENING [facility] Start: 05-07-1967 COVID-19 VACCINE (#1) COVID-19 VACCINE (#1) [facility] Start: 1966 Tobacco Counseling Tobacco Counseling [facility] Comprehensive metabo lic 1999 panel - Serum or Plasma [facility] MG Breast - bilatera l Screening [facility] US Thyroid gland [facility] Immunizations Immunization Date Immunization Notes Care Provider Deuce vee 02-28-2021 Pfizer-BioNTech COVI D-19 Vacc 30 MCG/0.3ML Intramuscular Suspension Laurie Spicer Work Phone: [facility] 250 DO Work Phone: 08-05-2020 Pfizer-BioNTech COVI D-19 Vacc 30 MCG/0.3ML Intramuscular Suspension Laurie Asif Spicer Work Phone: [facility] 250 DO Work Phone: 07-14-2020 Pfizer-BioNTech COVI D-19 Vacc 30 MCG/0.3ML Intramuscular Suspension Laurie Spicer Work Phone: [place] [address] DO Work Phone: 04-14-2013 diphtheria, tetanus toxoids and acellular pertussis vaccine Laurie Spicer Work Phone: [place] [address] DO Work Phone: Payers Date Payer Category Payer Medicaid [employer] [facility] O [id number] 2022-Present [phone] [address] [place] [address] [id number] 2022 Medicaid O [employer] [id number] 2022 Unknown [id number] 2022 Self-pay 2015 Private Health Insurance [employer] ASA GENERIC [id number] 2015-Present [phone] [place] [address] PPO [id number] 1966 Unknown [id number]. 356 1966 Unknown [id number]. 356 1966 Unknown [id number] [id number]. 356 1966 Unknown [id number] [id number]. 356 1966 Unknown [id number] [id number]. 593 1966 Unknown [id number] [id number]. 593 1966 Unknown [id number] [id number]. 727 1966 Unknown [id number] [id number]. 1286 1966 Unknown [id number] [id number]. 1286 1966 Unknown [id number] [id number]. 1244 1966 Unknown [id number] [id number]. 1244 1959 Private Health Insurance [id number] 1959 Unknown [id number] Unknown [id number] Medicare Medicare [id number] Unknown Unknown [id number] 531 Social History Date Type Detail Facility Start: 05-10-2014 End: 11-13-2015 Tobacco smoking status PRIS Smokes tobacco daily [facility] Work Phone: History of tobacco use Cigarette Smoker C [facility] Work Phone: Start: 11-13-2015 End: 09-13-2023 Cigarettes smoked current (pack per day) - Reported 1 [facility] Start: 01-09-2016 Alcohol intake Current non-dr desilverizer of alcohol (finding) [facility] Start: 1965 Sex Assigned At Not on file C [facility] Start: 1965 Sex Assigned At Female F [facility] Start: 03-04-2023 End: 09-13-2023 Sex Assigned At [facility] [employer] Other Start: 08-24-2022 Tobacco use and exposure Smokeless tobacco non-user [facility] Start: 03-04-2023 End: 09-13-2023 Alcohol intake Ex-drinker (finding) [facility] stem Adolescent depressio n screening assessment 0 [facility] Start: 12-06-2014 Sex Female (finding) [facility] Sex Male (finding) [facility] Start: 1965 Sex Assigned At Male F [facility] Medical Equipment Procedure Code Equipment Code Equipment Origin al Text Equipment Identifier Dates [id number], [id number] Star t: 12-14-2022 Blood Sugar Diagnostic (True Metrix Glucose Test Strip) strip Start: 05-31-2024 Blood Sugar Diagnostic (True Metrix Glucose Test Strip) strip Start: 09-15-2023 Lancets (Microle t Lancet) misc Start: 12-25-2024 Blood Sugar Diagnostic (True Metrix Glucose Test Strip) strip Start: 09-15-2023 End: 05-31-2024 Lancets (Microle t Lancet) misc Start: 08-04-2023 End: 05-31-2024 Lancets (Microle t Lancet) misc Start: 05-31-2024 End: 12-25-2024 Lancets (Ultra T hin Lancets) 33 gauge misc Start: 06-16-2023 End: 08-04-2023 Blood Sugar Diagnostic (True Metrix Glucose Test Strip) strip Start: 01-16-2025 Blood Sugar Diagnostic (True Metrix Glucose Test Strip) strip Start: 09-15-2023 Lancets (Microle t Lancet) misc Start: 12-25-2024 Blood Sugar Diagnostic (True Metrix Glucose Test Strip) strip Start: 05-31-2024 End: 01-16-2025 Blood Sugar Diagnostic (True Metrix Glucose Test Strip) strip Start: 09-15-2023 End: 05-31-2024 Lancets (Microle t Lancet) misc Start: 08-04-2023 End: 05-31-2024 Lancets (Microle t Lancet) misc Start: 05-31-2024 End: 12-25-2024 Lancets (Ultra T hin Lancets) 33 gauge misc Start: 06-16-2023 End: 08-04-2023 Clinical Notes 11-06-2021 to 01-03-2025 Note Date & Type Note Facility 01-03-2025 Evaluation note Diagnosis Onset Date Resolution Insect bite of back wall of thorax acute January 03, 025 9:21am Fatigue acute January 9:03am Medicare welcome exam acute Sep 2024 9:03am Screening mammogram for breast cancer acute January 18, 2025 9:03am Thyromegaly acute January 9:03am Type 2 diabetes mellitus with hyperglycemia acute January 9:03am Encounter for initial annual wellness visit in Medicare patient noneactive January 18, 2025 9:03am [facility] Work Phone: [phone] [id number] Miscellaneous Notes* Telephone Encounter - Ramona Chapin - 07/06/2024 2:20 PM EST Public Health Technician contacted patient from the wait list to schedule follow up with Dr ESCALANTE. Patient states that she is trying to sort out insurance at this time and will call at another time to schedule. [facility] Telephone encounter Note* Telephone Encounter - Ramona Chapin - 07/06/2024 2:20 PM EST Public Health Technician contacted patient from the wait list to schedule follow up with Dr ESCALANTE. Patient states that she is trying to sort out insurance at this time and will call at another time to schedule. [facility] History of Present illness Narrative* Alexei Galvan MD - 09/13/2023 12:45 PM EDT Chief Complaint Patient presents with Procedure Nerve block Current Outpatient Medications on File Prior to [...] tablet (10 mg total) by mouth nightly. erenumab-aooe (AIMOVIG AUTOINJECTOR) 70 mg/mL auto-injector INJECT 70MG SUBCUTANEOUSLY EVERY 28 DAYS 1 mL 3 ibuprofen (MOTRIN) 800 mg tablet Take 1 tablet (800 mg total) by mouth as needed. KLOR-CON M20 20 mEq CR tablet Take 1 tablet (20 mEq total) by mouth in the morning. loratadine (CLARITIN) 10 mg tablet Take 1 [...] 1 capsule by mouth in the morning. ondansetron ODT (ZOFRAN ODT) 4 mg disintegrating tablet Dissolve 1 tablet (4 mg total) on tongue every 8 (eight) hours as needed. pantoprazole (PROTONIX) 40 mg EC tablet Take 1 tablet (40 mg total) by mouth in the morning. POTASSIUM ORAL Take 40 mEq by mouth. daily triamterene-hydroCHLOROthiazid (MAXZIDE-25) 37.5-25 mg per tablet Take 1 tablet by mouth in the morning. varenicline tartrate (VARENICLINE ORAL) Take 5 mg by mouth once daily. Take with full glass of water. venlafaxine XR (EFFEXOR-XR) 75 mg 24 hr capsule Take 1 capsule (75 mg total) by mouth in the morning. docusate sodium (STOOL SOFTENER ORAL) Take by mouth 2 (two) times a day. (Patient not taking: Reported on 09/13/2023) lancets 33 gauge misc USE TO TEST BLOOD SUGAR DAILY (Patient not taking: Reported on 09/13/2023) TRUE METRIX GLUCOSE TEST STRIP strip USE 1 DAILY TO TEST BLOOD SUGAR (Patient not taking: Reported on 09/13/2023) No current facility-administered medications on file prior to visit. Allergies Allergen Reactions Demerol [Meperidine] Meperidine (Pf) Itching dizzy Vitals: 09/13/23 1244 BP: 134/78 Pulse: 78 PROCEDURE: Elias Heller is a 57 y.o. female presenting for nerve blocks in the bilateral greater occipital and bilateral auriculotermporal regions. All risks and benefits of the procedure were discussed with the patient and all questions were answered. A time-out was performed and the patient identifies were checked. Consent was obtained. The patient was initially injected with 0.5% bupivacaine using a 27gauge needle into the sites above. This was followed with a mixed solution of kenalog and bupivacaine with approximately 5mg of kenalog being used in each site. A 27 gauge needle was used. The patient tolerated the procedure well and may return in 3 months for further injections. Kenalog [facility] [id number] Lot [id number] Exp 10/2024 Bupivacaine [facility] [id number] Lot [id number] Exp 12/02/2023 1. Neuralgia and neuritis - bupivacaine PF (MARCAINE) 0.5 % (5 mg/mL) injection 20 mg - triamcinolone acetonide (KENALOG-40) injection 20 mg 2. Chronic migraine without aura, intractable, with status migrainosus - bupivacaine PF (MARCAINE) 0.5 % (5 mg/mL) injection 20 mg - triamcinolone acetonide (KENALOG-40) injection 20 mg PLAN: [facility] Miscellaneous Notes* Telephone Encounter - Diane Webb CNA - 06/22/2023 4:06 PM EST Open in error documented [facility]02[facility] Telephone encounter Note* Telephone Encounter - Diane Webb CNA - 06/22/2023 4:06 PM EST Open in error [facility]02-[facility] Evaluation note* Encounter Date Diagnosis Assessment Notes Treatment Notes Treatment Clinical Notes Jun, 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 Place ice or a cool, wet towel on the sores 3 times a day for 20 minute incriments. It may help to reduce redness and swelling. If you are just getting a cold sore, try [id number] Abreva cream to reduce symptoms. Do not [...] Jun, Blister (ICD-10 - T14.8XXA) see above. [facility] 02-08-2024 History of Present illness Narrative* [...] by mouth as needed. lancets 33 gauge [facility] USE TO TEST BLOOD SUGAR DAILY loratadine [...] in 3 months for further injections. Kenalog [facility] [id number] Lot [id number] Exp 12/2023 Bupivacaine [facility] [id number] Lot [id number] Exp 09/01/2023 1. Neuralgia and neuritis - bupivacaine PF (MARCAINE) 0.5 % (5 mg/mL) injection 20 mg - triamcinolone acetonide (KENALOG-40) injection 20 mg 2. Chronic migraine without aura, intractable, with status migrainosus - bupivacaine PF (MARCAINE) 0.5 % (5 mg/mL) injection 20 mg - triamcinolone acetonide (KENALOG-40) injection 20 mg PLAN: documented in this encounterSumma HealthDispersol Technologies [facility] Evaluation note* Encounter Date Diagnosis Assessment Notes Treatment Notes Treatment Clinical Notes Jan, Eczema, dyshidrotic (ICD-10 - L30.1) Discussed diagnosis with pt. Rx cream as directed for spot treatment and flare ups. Discussed need for chronic treatment with moisturizer. Recommended aquaphor, vasaline, or cerave lotion. F/u with derm for any persistent, changing, or worsening sx. Pt understood and agreed to tx plan. [facility] Other 08-31-2023 Evaluation note* Encounter Date Diagnosis Assessment Notes Treatment Notes Treatment Clinical Notes Dec, Acute pain of right knee (ICD-10 - M25.561) Will use prednisone for acute anti-inflammatory results. Advised to elevate leg and check xray today to r/o fracture. Dec, Right leg pain (ICD-10 - M79.604) Will check US to r/o DVT. Pt expresses understanding. [facility] Other 05-11-2023 Evaluation note* Encounter Date Diagnosis Assessment Notes Treatment Notes Treatment Clinical Notes August, Essential tremor (ICD-10 - G25.0) Resolved - will review symptoms w her Neurologist next week. August, Anxiety (ICD-10 - F41.9) chronic and controlled on present meds August, Meniere's disease, unspecified laterality (ICD-10 - H81.09) chronic and unchanged. [facility] Other 05-01-2023 History of Present illness Narrative* [...] well. LDL goal is 70 or below. [employer] [employer] 250 DO Work Phone: 1(406) 152-384602-07-2023 Evaluation note* Encounter Date Diagnosis Assessment Notes Treatment Notes Treatment Clinical Notes Jun, Orthostatic dizziness (ICD-10 - R42) Prescribed by her logger all round; needs it sent to a different pharmacy. Followup with Dr. Iglesias. She is instructed to increase hydration, salt, and exercise as able. Jun, Anxiety (ICD-10 - F41.9) Pt requests to increase her dose as her situational and medical problems have increased her anxiety Jun, Smoker (ICD-10 - F17.200) Discussed modalities to help quit smoking [facility] Other 12-19-2022 History of Present illness Narrative* [...] HDL 62 triglycerides 103 and LDL 143. [facility] [employer] DO Work Phone: 1(556) 608-516309-22-2022 NoteHNO ID: [id number] Author: Kyle Watson MD Service: ? Author Type: Physician Type: Progress Notes Filed: 01/22/2022 1:50 PM Note Text: INITIAL CONSULT - HEADACHE MEDICINE SERVICE DATE: January 22, 2022 Location: [facility] Participants: patient, adult daughter and provider Requesting Provider: Recommendations of care will be communicated by shared medical record. Member Name Role and Specialty Contact Info Address Comments Laurie Spicer MD Referring [address] [facility] [id number] - Subjective HPI: Elias Heller is a [...] a tilt table test with her local logger all round. -Episodic migraine without aura. Reviewing her neurologist notes, I believe her management is a (more content not included)...[facility] 11-06-2021 Miscellaneous Notes* Telephone Encounter - Alyson Galaviz RN - 11/06/2021 9:00 AM EDT Patient calling with request for physician referral: Patient referred to Neurological Department. .Patient denies any new or worsening symptoms of which a provider is not aware: Yes. Patient's PCP is referring her to [facility] for severe headaches. Conferenced to the Appointment Center for scheduling. GO TO THE EMERGENCY ROOM OR CALL 911 IF: * You develop any new symptoms * Your condition worsens * You are concerned or anxious about your condition for any other reason. If you have any questions, you can call Nurse controller instructor back. documented in this encounterThe Jewish HospitalEvaluation noteNo assessment information [facility] Work Phone: Evaluation noteNo InformationNort Piccsy Other Evaluation note* Diagnosis Chronic migraine without aura, intractable, with status migrainosus documented in this encounter [facility] SystemEvaluation note* Diagnosis Neuralgia and neuritis- Primary Chronic migraine without aura, intractable, with status migrainosus documented in this encounter [facility]* Diagnosis Neuralgia and neuritis- Primary Chronic migraine without aura, intractable, with status migrainosus documented in this encounter [facility] SystemHistory general Narrative - Reported* Type Description Date [...] Hospitalization History No Hospitalization histo ry information [facility] Other History general Narrative - Reported* Type [...] History tonsillectomy Hospitalization History SEE SURGICAL HX [facility] Other InstructionsNot on filedocumented in this encounter [facility] SystemInstructions* Attachments The following attachments cannot be sent through Care Everywhere. * Migraines in adults (Polish) documented in this encounterProArchivas SystemInstructionsNot on file documented in this encounterProDale [facility] Center [facility] SystemInstructions* Attachments The following attachments cannot be sent through Care Everywhere. * Migraines in adults (Polish) documented in this encounterSumma HealthDispersol Technologies [facility] SystemReason for referral (narrative)No reason for referral information availableDiley Ridge Medical Center Work Phone: Summary Purpose Family History Unknown Family Member Name Dates Details Family [...] of myocardial infarction: Father, Brother(V17.3, Z82.49) Status:Active Relationship Condition Age at Onset Recorded Date/T rachelle father Heart disease Unknown mother Unknown Heart disease Unknown Advance Directives Advance Directive Response Recorded Date/ Time Advance Directives No May 20, 2022 10:03am Advance Directive Response Recorded Date/ Time Advance Directives No May 20, 2022 11:03am Chief Complaint and Reason for Visit Chief Complaint Syncope Chief Complaint Admit Date VIRTUAL:Scabies January 03, 2025 9:21am Chief Complaint Admit Date VIRTUAL:Scabies January 03, 2025 9:21am Welcome to Medicare January 18, 2025 9:03am Reason for Visit Admit Date Insect bite of back wall of thorax Septe mb2024 9:21am Fatigue January 18, 2025 9:03am Medicare welcome exam January 18 9:03am Screening mammogram for breast cancer Se ptember 2024 9:03am Thyromegaly January 18, 2025 9:03am Type 2 diabetes mellitus with hyperglyce christopher January 18, 2025 9:03am Encounter for initial annual wellness visit in Medicare patient January 18, 2025 9:03am Chief Complaint ELIAS HELLER is being seen [...] or prosecute any alcohol or drug abuse patient.[facility] Reason for Visit (unrecogniz ed section and content) Reason Comments Referral Request Reason Comments Med Refill Reason Comments Procedure Reason Comments Procedure Nerve block Reason Onset Date Comments Waitlist Maintenance 07/06/2024 Care Teams (unrecognized sec tion and content) Team Status: Active Member Role Status Dates Laurie Spicer MD Primary Care Provider Active Team Status: Inactive Member Role Status Dates Laurie Spicer MD Primary Care Provider Active Start: January 03, 2025 End: January 03, 2025 Laurie Spicer MD Attending Provider Active St art: January 03, 2025 End: January 03, 2025 General Service Officer Relationship Specialty Start Date End Date Laurie Spicer MD [address] [facility] [place] [id number] PCP - General Family Practice 10/17/15 Team Status: Inactive Member Role Status Dates Marissa Iglesias MD Attending Provider Active Jaquelin Christie MD Referring Provider Active Laurie Spicer MD Primary Care Provider Active General Service Officer Relationship Specialty Start Date End Date Laurie Spicer MD [address] [place] [facility] [address] PCP - General Family Medicine 06/30/21 General Service Officer Relationship Specialty Start Date End Date Laurie Spicer MD [address] [place] [facility] [address] PCP - General Family Medicine 06/30/21 General Service Officer Relationship Specialty Start Date End Date Laurie Spicer MD [address] [facility] [phone] PCP - General Family Medicine 06/30/21 General Service Officer Relationship Specialty Start Date End Date Laurie Spicer MD [address] [place] [facility] [phone] PCP - General Family Medicine 06/30/21 General Service Officer Relationship Specialty Start Date End Date Laurie Spicer MD [address] [place] [facility] [address] PCP - General Family Medicine 06/30/21 Team Status: Inactive Member Role Status Dates Laurie Spicer MD Primary Care Provider Active Start: January 18, 2025 End: January 18, 2025 Laurie Spicer MD Attending Provider Active St art: January 18, 2025 End: January 18, 2025 INFORMATION SOURCE (unrecogn ized section and content) DATE CREATED AUTHOR 02/01/2022 [facility] DATE CREATED AUTHOR AUTHOR'S ORGANIZ ATION 06/06/2022 [facility] DATE CREATED AUTHOR AUTHOR'S ORGANIZ ATION 08/31/2022 [facility] DATE CREATED AUTHOR AUTHOR'S ORGANIZ ATION 08/31/2022 [employer] DATE CREATED AUTHOR AUTHOR'S ORGANIZ ATION 09/10/2022 [facility] DATE CREATED AUTHOR AUTHOR'S ORGANIZ ATION 10/09/2022 [facility] DATE CREATED AUTHOR AUTHOR'S ORGANIZ ATION 09/14/2023 [facility] DATE CREATED AUTHOR AUTHOR'S ORGANIZ ATION 10/22/2023 [facility] Goals (unrecognized section and content) Goals may be documented in a n alternate sectionNo InformationNo InformationNo InformationNo InformationNo InformationNo InformationNo InformationNo InformationNo InformationNo InformationNo InformationNo InformationNo InformationNo InformationNo InformationNo InformationNot on filedocumented as of this encounterNot on filedocumented as of this encounterNot on filedocumented as of this encounterNot on filedocumented as of this encounterNot on filedocumented as of this encounterGoals may be documented in an alternate sectionGoals may be documented in an alternate section FOR RECORDS PERTAINING TO PATIENTS WHO ARE [...] BE BASED ON THE PRIMARY CLINICAL RECORDS. [employer] provides no warranty or guarantee of the accuracy or completeness of information in this document.
== END 2025-01-24 09:57 | disposition home or self-care (01) ==
LOC: US 09:56
PROVIDERS: PCP Family Medicine; Visit Provider Family Medicine
DX: Z00.00 Encounter for general adult medical examination without abnormal findings (principal); E11.65 Type 2 diabetes mellitus with hyperglycemia; R53.83 Other fatigue; R01.0 Benign and innocent cardiac murmurs; Z12.31 Encounter for screening mammogram for malignant neoplasm of breast
CPT/HCPCS: 76536; 77063; 77067

== ENCOUNTER 2025-01-25 09:08 | Outpatient (OUT) | payer MEDICARE, SELFPAY ==
--- OUTSIDE RECORDS SUMMARY | 2025-01-25 09:17 | XMS_ITS | CCD ---
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 Laurie Corey [...] SPICER Primary Care Unavailable ALEXEI GALVAN Attending LAUREI Nicole Referring Unavailable LAURIE SPICER Primary Care [...] (PF)] Drug Allergy 6 GI Upset, Itching [facility] Work Phone: (20 sources) Meperidine; Translations: [Demerol TABS] Drug Allergy 2 [facility] (4 sources) Meperidine; Translations: [meperidine] Drug Allergy 2 [facility] (2 sources) Meperidine; Translations: [Demerol] Drug Allergy 5 [facility] Repository Medications Current Medications Medication [...] ( ) take 1 capsule by mo [facility] every twenty-four hours in the morning venlafaxine [...] Jun, Active take 2 tablets by mo [facility] three times daily in the evening midodrine [...] Sullivan ( ) take 1 tablet by [facility] every twenty-four hours Primidone 50 MG 1 [...] Sullivan ( ) take 2 tablets by [facility] every six hours Sudafed 30 MG [...] Translations: [Nausea] Episodic Other aftercare (1 source) 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 Ismael Kenney Basophils/100 WBC (Bld) 0.4 % Normal 0.2-2.0 [facility] Comment on above: Performed By: #### C BC #### [facility] [address] [place] [address] Dr. Ismael Kenney EO # 0.2 103/ul Normal 0.0-0.7 [facility] Comment on above: Performed By: #### C BC #### [facility] [address] [address] [address] Ismael Kenney Eosinophils/100 WBC (Bld) 1.5 % Normal 0.9-7.0 [facility] Comment on above: Performed By: #### C BC #### [facility] [address] [place] [address] Dr. Ismael Kennye Erythrocyte distribution width (RBC) [Ratio] 15.7 % Critically high 11.0-15.0 [facility] Comment on above: Performed By: #### C BC #### [facility] [address] [place] [address] Dr. Ismael Kenney Hematocrit (Bld) [Volume fraction] 43.7 % Normal 36.0-48.0 [facility] Comment on above: Performed By: #### C BC #### [facility] [address] [address] [address] Ismael Kenney Hemoglobin (Bld) [Mass/Vol] 13.9 g/dL Normal 12.0-16.0 [facility] Comment on above: Performed By: #### C BC #### [facility] [address] [place] [address] Dr. Ismael Kenney IG # 0.04 10e3/ul Critically high 0.00-0.[address] [facility] Comment on above: Performed By: #### C BC #### [facility] [address] [place] [address] Dr. Ismael Kenney IG % 0.3 % Normal 0.0-0.5 [facility] Comment on above: Performed By: #### C BC #### [facility] [address] [place] [address] Dr. Ismael Kenney LYMPH # 3.4 103/ul Normal 1.2-3.8 [facility] Comment on above: Performed By: #### C BC #### [facility] [address] [place] [address] Dr. Ismael Kenney Lymphocytes/100 WBC (Bld) 27.6 % Normal 20.5-60.0 [facility] Comment on above: Performed By: #### C BC #### [facility] [address] [place] [address] Dr. Ismael Kenney MANUAL DIFF REQ NO Normal [facility] Comment on above: Performed By: #### C BC #### [facility] [address] [place] [address] Dr. Ismael Kenney MCH (RBC) [Entitic mass] 25.9 pg Critically low 26.7-34.0 [facility] Comment on above: Performed By: #### C BC #### [facility] [address] [place] [address] Dr. Ismael Kenney MCHC (RBC) [Mass/Vol] 31.8 g/dL Normal 29.9-35.2 [facility] Comment on above: Performed By: #### C BC #### [facility] [address] [place] [address] Dr. Ismael Kenney MCV (RBC) [Entitic vol] 81.4 fL Normal 81.0-99.0 [facility] Comment on above: Performed By: #### C BC #### [facility] [address] [place] [address] Dr. Ismael Kenney MONO # 0.8 103/ul Normal 0.3-0.8 [facility] Comment on above: Performed By: #### C BC #### [facility] [address] [place] [address] Dr. Ismael Kenney Monocytes/100 WBC (Bld) 6.4 % Normal 1.7-12.0 [facility] Comment on above: Performed By: #### C BC #### [facility] [address] [place] [address] Dr. Ismael Kenney NEUT # 7.9 103/ul Critically high 1.4-6.5 [facility] Comment on above: Performed By: #### C BC #### [facility] [address] [place] [address] Dr. Ismael Kenney Neutrophils/100 WBC (Bld) 63.8 % Normal 43.0-75.0 [facility] Comment on above: Performed By: #### C BC #### [facility] [address] [place] [address] Dr. Ismael Kenney Platelet mean volume (Bld) [Entitic vol] 10.0 fL Normal 9.5-13.5 [facility] Comment on above: Performed By: #### C BC #### [facility] [address] [place] [address] Dr. Ismael Kenney PLT 402 103/ul Normal 150-450 [facility] Comment on above: Performed By: #### C BC #### [facility] [address] [place] [address] Dr. Ismael Kenney RBC 5.37 106/ul Normal 4.20-5.40 [facility] Comment on above: Performed By: #### C BC #### [facility] [address] [place] [address] Dr. Ismael Kenney WBC 12.4 103/ul Critically high 4.0-11.0 [facility] Comment on above: Performed By: #### C BC #### [facility] [address] [place] [address] Dr. Ismael Kenney MAGNESIUMon 09-07-2022 Magnesium [Mass/Vol] 2.2 mg/dL Normal 1.8-2.4 [facility] Comment on above: Performed By: #### M G #### [facility] [address] [place] [address] Dr. Ismael Kenney POINT OF CARE GLUCOSEon Glucose [Mass/Vol] 85 mg/dL Normal 74-106 [facility] Comment on above: Performed By: #### P OCGLUC #### [facility] [address] [place] [address] Dr. Ismael Kenney PROF 14(COMP METB)on 023 Albumin [Mass/Vol] 3.6 g/dL Normal 3.4-5.0 [facility] Comment on above: Performed By: #### T SH, CMP, HSTROPN #### [facility] [address] [place] [address] Dr. Ismael Kenney Albumin/Globulin [Mass ratio] 0.9 {ratio} Normal [facility] Comment on above: Performed By: #### T SH, CMP, HSTROPN #### [facility] [address] [place] [address] Dr. Ismael Kenney ALP [Catalytic activity/Vol] 100 U/L Normal 46-116 [facility] Comment on above: Performed By: #### T SH, CMP, HSTROPN #### [facility] [address] [place] [address] Dr. Ismael Kenney ALT [Catalytic activity/Vol] 31 U/L Normal 14-59 [facility] Comment on above: Performed By: #### T SH, CMP, HSTROPN #### [facility] [address] [place] [address] Dr. Ismael Kenney Anion gap [Moles/Vol] 12.1 mmol/L Normal [facility] Comment on above: Performed By: #### T SH, CMP, HSTROPN #### [facility] [address] [place] [address] Dr. Ismael Kenney AST [Catalytic activity/Vol] 23 U/L Normal 15-37 [facility] Comment on above: Performed By: #### T SH, CMP, HSTROPN #### [facility] [address] [address] [address] Ismael Kenney Bilirubin [Mass/Vol] 0.2 mg/dL Normal 0.2-1.0 [facility] Comment on above: Performed By: #### T SH, CMP, HSTROPN #### [facility] [address] [address] [address] Ismael Kenney Calcium [Mass/Vol] 9.4 mg/dL Normal 8.5-10.1 [facility] Comment on above: Performed By: #### T SH, CMP, HSTROPN #### [facility] [address] [place] [address] Dr. Ismael Kenney Chloride [Moles/Vol] 104 mmol/L Normal 98-107 [facility] Comment on above: Performed By: #### T SH, CMP, HSTROPN #### [facility] [address] [place] [address] Dr. Ismael Kenney CO2 [Moles/Vol] 28.4 mmol/L Normal 21.0-32.0 [facility] Comment on above: Performed By: #### T SH, CMP, HSTROPN #### [facility] [address] [place] [address] Dr. Ismael Kenney Creatinine [Mass/Vol] 1.03 mg/dL Critically high 0.55-1.02 [facility] Comment on above: Performed By: #### T SH, CMP, HSTROPN #### [facility] [address] [place] [address] Dr. Ismael Kenney EGFR-AF PORTUGUESE >60 Normal >=60 [facility] Comment on above: Performed By: #### T SH, CMP, HSTROPN #### [facility] [address] [place] [address] Dr. Ismael Kenney EGFR-NON AF PORTUGUESE 56 mL/min/1.73m2 Critically low >=60 [facility] Comment on above: Performed By: #### T SH, CMP, HSTROPN #### [facility] [address] [place], [place] [id number] Dr. Ismael Kenney Globulin (S) [Mass/Vol] 4.2 g/dL Normal [facility] Comment on above: Performed By: #### T SH, CMP, HSTROPN #### [facility] [address] [place] [address] Dr. Ismael Kenney Glucose [Mass/Vol] 76 mg/dL Normal 74-106 [facility] Comment on above: Performed By: #### T SH, CMP, HSTROPN #### [facility] [address] [place] [address] Dr. Ismael Kenney Potassium [Moles/Vol] 4.5 mmol/L Normal 3.5-5.1 [facility] Comment on above: Performed By: #### T SH, CMP, HSTROPN #### [facility] [address] [place] [address] Dr. Ismael Kenney Protein [Mass/Vol] 7.8 g/dL Normal 6.4-8.2 [facility] Comment on above: Performed By: #### T SH, CMP, HSTROPN #### [facility] [address] [place] [address] Dr. Ismael Kenney Sodium [Moles/Vol] 140 mmol/L Normal 136-145 [facility] Comment on above: Performed By: #### T SH, CMP, HSTROPN #### [facility] [address] [place] [address] Dr. Ismael Kenney Urea nitrogen [Mass/Vol] 21.0 mg/dL Critically high 7.0-18.0 [facility] Comment on above: Performed By: #### T SH, CMP, HSTROPN #### [facility] [address] [address] [address] Ismael Kenney Urea nitrogen/Creatinin e [Mass ratio] 20.4 mg/mg Normal [facility] Comment on above: Performed By: #### T SH, CMP, HSTROPN #### [facility] [address] [place] [address] Dr. Ismael Kenney PROTIMEon 09-07-2022 INR Coag (PPP) [Relative time] {INR} Normal [facility] Comment on above: Performed By: #### P TT, PT #### [facility] [address] [place] [address] Dr. Ismael Kenney INR GUIDELINES SEE BELOW Normal [facility] Comment on above: Result Comment: BEVERLEY RED INR: 2.0 - 3.0 CONDITIONS NOT LISTED BELOW 2.5 - 3.5 FOR PROSTHETIC HEART VALVE REPLACEMENT 2.5 - 3.5 RECURRENT THROMBOSIS Performed By: #### P TT, PT #### [facility] [address] [place] [address] Dr. Ismael Kenney PT Coag (PPP) [Time] 9.6 s Normal 9.0-11.6 [facility] Comment on above: Performed By: #### P TT, PT #### [facility] [address] [place] [address] Dr. Ismael Kenney PTTon 09-07-2022 aPTT Coag (Bld) [Time] 29.5 s Normal 22.3-36.2 [facility] Comment on above: Performed By: #### P TT, PT #### [facility] [address] [place] [address] Dr. Ismael Kenney TROPONIN, HIGH SENSITIVITYon 09-07-2022 HSTROP 5.6 pg/mL Normal 4.0-51.3 [facility] Comment on above: Result Comment: CUT- OFF POINTS HAVE BEEN ESTABLISHED BASED ON THE FOURTH UNIVERSAL DEFINITIONS OF MYOCARDIAL INFARCTION. THE UPPER REFERENCE LIMIT (URL) OF TROPONIN, DEFINED THE 99TH PERCENTILE OF cTnI DISTRIBUTION IN A REFERENCE POPULATION, HAS BEEN CONFIRMED THE DECISION THRESHOLD FOR AL DIAGNOSIS. Performed By: #### T SH, CMP, HSTROPN #### [facility] [address] [place] [address] Dr. Ismael Kenney TSHon 09-07-2022 TSH 1.639 uIU/mL Normal 0.358-3.740 [facility] Comment on above: Performed By: #### T SH, CMP, HSTROPN #### [facility] [address] [place] [address] Dr. Ismael Kenney Office Visit (Cardiology)on 08-31-2022 [...] we can help. You may also call 0-351-BPAI-NOW for free resources and assistance.; Status:Complete - Retrospective Authorization; Done: [id number] Patient Instructions Please bring all medicines, vitamins, [...] with significant (more content not included)... Normal [employer] Tobacco Screening.on 023 Tobacco use status CP a) Yes -[facility] [employer] 250 DO Work Phone: Tobacco Screening. Yes -[facility] 250 DO Work Phone: Office Visit (Cardiology)on [...] we can help. You may also call 2-244-DUIKSkyriderNOW for free resources and assistance.; Status:Complete - [...] Tubal liga (more content not included)... Normal [employer] Tobacco Screening.on 023 Adult depression screening assessment No [facility] [employer] 250 DO Work Phone: Fall risk assessment a) No falls within the last year [facility] [employer] 250 DO Work Phone: Tobacco use status CPHS a) Yes [facility] [employer] 250 DO Work Phone: Tobacco Screening. 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 Iglesias. Transcribed By: NTS 05/20/22 1548 Dictated By: Jaquelin Christie MD 05/20/22 1139 Signed By: 05/21/22 0946 [facility] No Panel Informationon 05-[address] [address] DO Work Phone: LIPID PROFILEon 05-05-2022 CHOL-HDL RATIO NORM SEE BELOW Normal [facility] Comment on above: Result Comment: 3.3 - 4.4 LOW RISK 4.4 - 7.1 AVERAGE RISK 7.1 - 11.0 MODERATE RISK >11.0 HIGH RISK Performed By: #### L IPID, BMP #### [facility] [address] [address] [address] Ismael Kenney Cholesterol [Mass/Vol] 226 mg/dL Critically high <=200 [facility] Comment on above: Performed By: #### L IPID, BMP #### [facility] [address] [address] [address] Ismael Kenney Cholesterol in HDL [Mass/Vol] 62 mg/dL Critically high 40-60 [facility] Comment on above: Performed By: #### L IPID, BMP #### [facility] [address] [address] [address] Ismael Kenney Cholesterol in LDL [Mass/Vol] 143.4 mg/dL Normal [facility] Comment on above: Performed By: #### L IPID, BMP #### [facility] [address] [address] [address] Ismael Kenney Cholesterol.total/ Cholesterol in HDL [Mass ratio] 3.6 {ratio} Normal [facility] Comment on above: Performed By: #### L IPID, BMP #### [facility] [address] [address] [address] Ismael Kenney HDL NORMAL > or = 60 mg/dl - LO W CARDIOVASCULAR RISK <40 mg/dl - HIGH CARDIOVASCULAR RISK Normal [facility] Comment on above: Performed By: #### L IPID, BMP #### [facility] [address] [address] [address] Ismael Kenney LDL CALC NORMAL SEE BELOW Normal [facility] Comment on above: Result Comment: <100 mg/dl OPTIMAL 100 - 129 mg/dl NEAR OR ABOVE OPTIMAL 130 - 159 mg/dl BORDERLINE HIGH 160 - 189 mg/dl HIGH >190 mg/dl VERY HIGH Performed By: #### L IPID, BMP #### [facility] [address] [address] [address] Ismael Kenney Triglyceride [Mass/Vol] 103 mg/dL Normal <=150 [facility] Comment on above: Performed By: #### L IPID, BMP #### [facility] [address] [place] [address] Dr. Ismael Kenney VLDL CALC 20.6 mg/dL Normal [facility] Comment on above: Performed By: #### L IPID, BMP #### [facility] [address] [place] [address] Dr. Ismael Kenney PROF CHEM 8 (BAS METB)on Anion gap [Moles/Vol] 11.2 mmol/L Normal [facility] Comment on above: Performed By: #### L IPID, BMP #### [facility] [address] [place] [address] Dr. Ismael Kenney Calcium [Mass/Vol] 9.0 mg/dL Normal 8.5-10.1 [facility] Comment on above: Performed By: #### L IPID, BMP #### [facility] [address] [place] [address] Dr. Ismael Kenney Chloride [Moles/Vol] 105 mmol/L Normal 98-107 [facility] Comment on above: Performed By: #### L IPID, BMP #### [facility] [address] [place] [address] Dr. Ismael Kenney CO2 [Moles/Vol] 31.1 mmol/L Normal 21.0-32.0 [facility] Comment on above: Performed By: #### L IPID, BMP #### [facility] [address] [place] [address] Dr. Ismael Kenney Creatinine [Mass/Vol] 0.92 mg/dL Normal 0.55-1.02 [facility] Comment on above: Performed By: #### L IPID, BMP #### [facility] [address] [place] [address] Dr. Ismael Kenney EGFR-AF PORTUGUESE >60 Normal >=60 [facility] Comment on above: Performed By: #### L IPID, BMP #### [facility] [address] [place] [address] Dr. Ismael Kenney EGFR-NON AF PORTUGUESE >60 Normal >=60 [facility] Comment on above: Performed By: #### L IPID, BMP #### [facility] [address] [place] [address] Dr. Ismael Kenney Glucose [Mass/Vol] 98 mg/dL Normal 74-106 [facility] Comment on above: Performed By: #### L IPID, BMP #### [facility] [address] [place] [address] Dr. Ismael Kenney Potassium [Moles/Vol] 4.3 mmol/L Normal 3.5-5.1 [facility] Comment on above: Performed By: #### L IPID, BMP #### [facility] [address] [place] [address] Dr. Ismael Kenney Sodium [Moles/Vol] 143 mmol/L Normal 136-145 [facility] Comment on above: Performed By: #### L IPID, BMP #### [facility] [address] [place] [address] Dr. Ismael Kenney Urea nitrogen [Mass/Vol] 19.0 mg/dL Critically high 7.0-18.0 [facility] Comment on above: Performed By: #### L IPID, BMP #### [facility] [address] [place] [address] Dr. Ismael Kenney Urea nitrogen/Creatinin e [Mass ratio] 20.7 mg/mg Normal [facility] Comment on above: Performed By: #### L IPID, BMP #### [facility] [address] [place] [address] Dr. Ismael Kenney Office Visit (Cardiology)on 04-20-2022 [...] in adult Healthy Weight Tips; Status:Complete; Done: [id number] Some eating tips that can help you lose weight.; Status:Complete; Done: [id number] Hypokalemia Start: Potassium Chloride ER 20 MEQ Oral Tablet Extended Release; TAKE 2 TABLET Daily Hypokalemia, Stage 3a chronic kidney disease Basic Metabolic Panel; Status:Active; Requested for:[id number]; Palpitations Start: Magnesium 400 MG Oral Tablet; Take 1 tablet twice daily IO EKG Electrocardiogram- 12 Lead; Status:Complete; Done: [id number] Pre-syncope Tilt Table; Status:Hold For - Scheduling; Requested for:[id number]; Screening for hyperlipidemia Lipid Panel; Status:Active; Requested for:[id number]; SocHx: Current smoker Tobacco Use Screening; Status:Complete; Done: [id number] You need to quit smoking.; Status:Complete; Done: [id number] Tobacco Use Screening; Status:Complete; Done: [id number] You need to stop smoking. Though it is not easy, more than half of all adult smokers have quit. We encourage you to write down all the reasons you should quit smoking and set a quit date for yourself. Ask us how we can help. You may also call 7-432-PNTR-NOW for free resources and assistance.; Status:Complete; Done: [id number] Tobacco Use Screening; Status:Complete; Done: [id number] Patient Instructions Please bring all medicines, vitamins, [...] EKG today normal sinus rhythm at 85 DC interval 148 ms QRS duration 80 ms [...] Screening.on 022 Adult depression screening assessment No [facility] 250 DO Work Phone: Tobacco use status CPHS a) Yes [facility] 250 DO Work Phone: Tobacco Screening. Yes [facility] 250 DO Work Phone: CNOVon 01-22-2022 CNOV Office Visit ([facility] ) -------- ELIAS HELLER ([id number]) 1965 F Date Time Provider Department 01/22/22 1:00 PM KYLE WATSON [facility] During your visit today, we recorded the following information about you: Pulse Blood pressure Weight Height 67/minute 100/71 83.9 kg 1.6 m Kyle Watson MD 01/22/2022 1:50 PM Signed INITIAL CONSULT - HEADACHE MEDICINE SERVICE DATE: January 22, 2022 Location: [facility] Participants: patient, adult daughter and provider Requesting Provider: Recommendations of care will be communicated by shared medical record. Member Name Role and Specialty Contact Info Address Comments Laurie Spicer MD Referring [address] [facility] [phone] - Subjective HPI: Elias Heller is a [...] giving h (more content not included)... Normal [facility] Vital Signs Date Time Vital Sign Value Performing Clinician Facility 01-18-2025 09:20-0400 Body height 160.02 cm Laurie Spicer MD Work Phone: [facility] 01-18-2025 09:20-0400 Body mass index (BMI) [Ratio] 37 kg/m2 Laurie Spicer MD Work Phone: [facility] 01-18-2025 09:20-0400 Body weight 94.91 kg Laurie Spicer MD Work Phone: [facility] 01-18-2025 09:20-0400 Diastolic blood pressure 76 mm[Hg] Laurie Spicer MD Work Phone: [facility] 01-18-2025 09:20-0400 Heart rate 70 /min Laurie Spicer MD Work Phone: [facility] 01-18-2025 09:20-0400 Systolic blood pressure 118 mm[Hg] Laurie Spicer MD Work Phone: [facility] 09-13-2023 12:44-0400 Body height 160 cm Alexei Galvan MD [facility] 09-13-2023 12:44-0400 Body mass index (BMI) [Ratio] 33.86 kg/m2 Alexei [facility] 09-13-2023 12:44-0400 Body weight 86.68 kg Alexei Galvan MD Work Phone: [employer] 09-13-2023 12:44-0400 Diastolic blood pressure 78 mm[Hg] Alexei [facility] 09-13-2023 12:44-0400 Heart rate 78 /min Alexei Galvan MD Work Phone: [employer] 09-13-2023 12:44-0400 Systolic blood pressure 134 mm[Hg] Alexei Galvan MD Work Phone: [employer] 06-11-2023 10:30-0500 Body height 160.02 cm Karlene Wang Other [employer] Other 06-11-2023 10:30-0500 Body mass index (BMI) [Ratio] 34.01 kg/m2 Karlene Wang Other [employer] Other 06-11-2023 10:30-0500 Body weight 87.09 kg Karlene Wang Other [facility] Other 06-11-2023 10:30-0500 Diastolic blood pressure 80 mm[Hg] Karlene Felipe Other [employer] Other 06-11-2023 10:30-0500 SaO2% (BldA) [Mass fraction] 96 % Karlene [employer] Other [employer] Other 06-11-2023 10:30-0500 Systolic blood pressure 116 mm[Hg] Karlene Felipe Other [facility] Other 06-10-2023 12:00-0500 Body height 160 cm Alexei Galvan MD Work Phone: [employer] 06-10-2023 12:00-0500 Body mass index (BMI) [Ratio] 34.02 kg/m2 Alexei Galvan MD Work Phone: [employer] 06-10-2023 12:00-0500 Body weight 87.09 kg Alexei Galvan MD Work Phone: [employer] 06-10-2023 12:00-0500 Diastolic blood pressure 69 mm[Hg] Alexei Galvan MD Work Phone: [employer] 06-10-2023 12:00-0500 Heart rate 78 /min Alexei Galvan MD Work Phone: [employer] 06-10-2023 12:00-0500 Systolic blood pressure 120 mm[Hg] Alexei Galvan MD Work Phone: [employer] 02-15-2023 09:15-0400 Body height 160.02 cm Laurie Spicer Other [facility] Other 02-15-2023 09:15-0400 Body mass index (BMI) [Ratio] 34.72 kg/m2 Laurie Spicer Other [employer] Other 02-15-2023 09:15-0400 Body weight 88.91 kg Laurie Spicer Other [facility] Other 02-15-2023 09:15-0400 Diastolic blood pressure 78 mm[Hg] Laurie Spicer Other [facility] Other 02-15-2023 09:15-0400 Systolic blood pressure 116 mm[Hg] Lauire Spicer Other [employer] Other 12-31-2022 10:15-0400 Body height 160.02 cm Laurie Spicer Other [employer] Other 12-31-2022 10:15-0400 Body mass index (BMI) [Ratio] 34.65 kg/m2 Laurie Spicer Other [employer] Other 12-31-2022 10:15-0400 Body weight 88.72 kg Laurie Spicer Other [facility] Other 12-31-2022 10:15-0400 Diastolic blood pressure 75 mm[Hg] Laurie Spicer Other [employer] Other 12-31-2022 10:15-0400 Systolic blood pressure 111 mm[Hg] Laurie Spicer Other [employer] Other 09-10-2022 14:15-0400 Body height 160.02 cm Laurie Spicer Other [employer] Other 09-10-2022 14:15-0400 Body mass index (BMI) [Ratio] 34.18 kg/m2 Laurie Spicer Other [employer] Other 09-10-2022 14:15-0400 Body weight 87.54 kg Laurie Spicer Other [facility] Other 09-10-2022 14:15-0400 Diastolic blood pressure 72 mm[Hg] Laurie Spicer Other [employer] Other 09-10-2022 14:15-0400 SaO2% (BldA) [Mass fraction] 99 % Laurie Spicer Other [facility] Other 09-10-2022 14:15-0400 Systolic blood pressure 112 mm[Hg] Laurie Spicer Other [facility] Other 08-31-2022 08:55-0400 Diastolic blood pressure 80 mm[Hg] Laurie Spicer Work Phone: [employer] 250 DO Work Phone: 08-31-2022 08:55-0400 Systolic blood pressure 124 mm[Hg] Laurie Spicer Work Phone: [employer] 250 DO Work Phone: 08-31-2022 08:52-0400 Body height 160.02 cm Laurie Spicer Work Phone: [employer] 250 DO Work Phone: 08-31-2022 08:52-0400 Body mass index (BMI) [Ratio] 34.72 kg/m2 Laurie Spicer Work Phone: [employer] 250 DO Work Phone: 08-31-2022 08:52-0400 Body surface area Derived from formula 1.92 m2 Laurie Spicer Work Phone: [employer] 250 DO Work Phone: 08-31-2022 08:52-0400 Body weight 88.91 kg Laurie Spicer Work Phone: [employer] 250 DO Work Phone: 08-31-2022 08:52-0400 Diastolic blood pressure 84 mm[Hg] Laurie Spicer Work Phone: [employer] [facility] [employer] 250 DO Work Phone: 08-31-2022 08:52-0400 Heart rate 84 /min Laurie Spicer Work Phone: [employer] [facility] [employer] 250 DO Work Phone: 08-31-2022 08:52-0400 Systolic blood pressure 128 mm[Hg] Laurie Spicer Work Phone: [employer] [facility] [employer] 250 DO Work Phone: 06-09-2022 10:15-0500 Body height 160.02 cm Laurie Spicer Other [employer] Other 06-09-2022 10:15-0500 Body mass index (BMI) [Ratio] 34.01 kg/m2 Laurie Spicer Other [employer] Other 06-09-2022 10:15-0500 Body weight 87.09 kg Laurie Spicer Other [employer] Other 06-09-2022 10:15-0500 Diastolic blood pressure 80 mm[Hg] Laurie Spicer Other [employer] Other 06-09-2022 10:15-0500 SaO2% (BldA) [Mass fraction] 99 % Laurie Spicer Other [employer] Other 06-09-2022 10:15-0500 Systolic blood pressure 114 mm[Hg] Laurie Spicer Other [employer] Other 06-01-2022 11:01-0500 Diastolic blood pressure 60 mm[Hg] Laurie Spicer Work Phone: [facility] 250 DO Work Phone: 06-01-2022 11:01-0500 Systolic blood pressure 114 mm[Hg] Laurie Spicer Work Phone: [facility] 250 DO Work Phone: 06-01-2022 10:31-0500 Body height 160.02 cm Laurie Spicer Work Phone: [facility] 250 DO Work Phone: 06-01-2022 10:31-0500 Body mass index (BMI) [Ratio] 33.83 kg/m2 Laurie Spicer Work Phone: [facility] 250 DO Work Phone: 06-01-2022 10:31-0500 Body surface area Derived from formula 1.9 m2 Laurie Spicer Work Phone: [facility] 250 DO Work Phone: 06-01-2022 10:31-0500 Body weight 86.64 kg Laurie Spicer Work Phone: [facility] 250 DO Work Phone: 06-01-2022 10:31-0500 Diastolic blood pressure 80 mm[Hg] Laurie Spicer Work Phone: [facility] 250 DO Work Phone: 06-01-2022 10:31-0500 Heart rate 80 /min Laurie Spicer Work Phone: [facility] 250 DO Work Phone: 06-01-2022 10:31-0500 Systolic blood pressure 120 mm[Hg] Laurie Spicer Work Phone: [facility] 250 DO Work Phone: 05-20-2022 11:15-0500 Diastolic blood pressure 74 mm[Hg] MD Jaquelin Christie Work Phone: [facility] 05-20-2022 11:15-0500 Heart rate 78 /min MD Jaquelin Christie Work Phone: [facility] 05-20-2022 11:15-0500 Systolic blood pressure 110 mm[Hg] MD Jaquelin Christie Work Phone: [facility] 05-20-2022 10:49-0500 SaO2% (BldA) [Mass fraction] 99 % MD Jaquelin Christie Work Phone: [facility] 05-05-2022 10:09-0500 143.4 1 Laurie Spicer Work Phone: [facility] 250 DO Work Phone: Comment on above: [facility] 05-05-2022 10:09-0500 67 1 Laurie Spicer Work Phone: [facility] 250 DO Work Phone: Comment on above: [id number] 04-20-2022 12:39-0500 Diastolic blood pressure 80 mm[Hg] Laurie Spicer Work Phone: [facility] 250 DO Work Phone: 04-20-2022 12:39-0500 Systolic blood pressure 114 mm[Hg] Laurie Spicer Work Phone: [facility] 250 DO Work Phone: 04-20-2022 12:38-0500 Body height 160.02 cm Laurie Spicer Work Phone: [facility] 250 DO Work Phone: 04-20-2022 12:38-0500 Body mass index (BMI) [Ratio] 33.19 kg/m2 Laurie Spicer Work Phone: [facility] 250 DO Work Phone: 04-20-2022 12:38-0500 Body surface area Derived from formula 1.88 m2 Laurie Spicer Work Phone: [facility] 250 DO Work Phone: 04-20-2022 12:38-0500 Body weight 85 kg Laurie Spicer Work Phone: [facility] 250 DO Work Phone: 04-20-2022 12:38-0500 Diastolic blood pressure 82 mm[Hg] Laurie Spicer Work Phone: [facility] 250 DO Work Phone: 04-20-2022 12:38-0500 Heart rate 85 /min Laurie Spicer Work Phone: [facility] 250 DO Work Phone: 04-20-2022 12:38-0500 Systolic blood pressure 118 mm[Hg] Laurie Spicer Work Phone: [facility] 250 DO Work Phone: Encounters Encounter Date Encounter Type Care Provider Facility Start: 01-18-2025 End: 01-18-2025 ambulatory Laurie Spicer MD Work Phone: [facility] Work Phone: Start: 01-18-2025 End: 01-18-2025 Patient encounter procedure Laurie Spicer MD -[facility] Work Phone: Start: 01-18-2025 End: 01-18-2025 Patient encounter status Laurie Spicer MD [facility] Start: 01-03-2025 End: 01-03-2025 ambulatory Laurie Spicer MD Work Phone: [facility] Work Phone: Start: 01-03-2025 End: 01-03-2025 Patient encounter procedure Laurie Spicer MD -[facility] Work Phone: Start: 07-06-2024 End: 07-06-2024 Telephone encounter [facility] Comment on above: Waitlist Maintenance Start: 10-04-2023 End: 10-04-2023 ambulatory [facility] Ambulatory Start: 09-15-2023 End: 09-15-2023 ambulatory Laurie Spicer Other [facility] Other Start: 09-15-2023 Telephone encounter Laurie Spicer [facility] Start: 09-13-2023 End: 09-13-[address] [facility] Start: 09-13-2023 End: 09-13-2023 Patient encounter procedure Alexei Galvan MD Work Phone: [facility] Comment on above: Neuralgia and neurit is (Primary Dx); Chronic migraine without aura, intractable, with status migrainosus Start: 06-22-2023 Telephone encounter Diane Craig [facility] Start: 06-11-2023 End: 06-11-2023 ambulatory Karlene Wang Other [facility] Other Start: 06-11-2023 Office outpatient vi sit 15 minutes Karlene Wang [facility] Start: 06-10-2023 End: 06-10-2023 [facility] Start: 06-10-2023 End: 06-10-2023 Patient [...] 05-24-2023 End: 05-24-2023 ambulatory Laurie Spicer Other [facility] Other Start: 05-24-2023 Telephone encounter Laurie Spicer [facility] Start: 04-06-2023 End: 04-06-2023 ambulatory Laurie Spicer Other [facility] Other Start: 04-06-2023 Telephone encounter Laurie Spicer [facility] Start: 03-02-2023 End: 03-02-2023 ambulatory Laurie Spicer Other [facility] Other Start: 03-02-2023 Telephone encounter Laurie Spicer [facility] Start: 02-26-2023 End: 02-26-2023 ambulatory Laurie Spicer Other [facility] Other Start: 02-26-2023 Telephone encounter Laurie Spicer [facility] Start: 02-22-2023 End: 02-22-2023 ambulatory [facility] Ambulatory Start: 02-15-2023 End: 02-15-2023 ambulatory Laurie Spicer Other [facility] Other Start: 02-15-2023 Office outpatient vi sit 15 minutes Laurie Spicer [facility] Start: 01-01-2023 End: 01-01-2023 ambulatory Laurie Spicer Other [facility] Other Start: 01-01-2023 Telephone encounter Laurie Spicer [facility] Start: 12-31-2022 End: 12-31-2022 ambulatory Laurie Spicer Other [facility] Other Start: 12-31-2022 Office outpatient vi sit 15 minutes Laurie Spicer [facility] Start: 11-16-2022 End: 11-16-2022 ambulatory Laurie Spicer Other [facility] Other Start: 11-16-2022 Telephone encounter Laurie Spicer [facility] Start: 09-10-2022 End: 09-10-2022 ambulatory Laurie Spicer Other [facility] Other Start: 09-10-2022 Office outpatient vi sit 15 minutes Laurie Spicer [facility] Start: 09-07-2022 End: 09-07-[address] SELENE RAMIREZ . Facility: Start: 09-03-2022 End: 09-03-2022 ambulatory Laurie Spicer Other [facility] Other Start: 09-03-2022 Telephone encounter Laurie Spicer [facility] Start: 08-31-2022 Office outpatient vi sit 15 minutes Laurie Spicer Work Phone: [facility] 250 DO Work Phone: Start: 08-31-2022 ambulatory Marissamaya Iglesias Facility:1 [id number] Start: 08-05-2022 End: 08-05-2022 ambulatory Laurie Spicer Other [facility] Other Start: 08-05-2022 Telephone encounter Laurie Spicer [facility] Start: 06-25-2022 Chart Update Laurie Spicer Work Phone: [facility] 250 DO Work Phone: Start: 06-09-2022 End: 06-09-2022 ambulatory Laurie Spicer Other [facility] Other Start: 06-09-2022 Office outpatient vi sit 15 minutes Laurie Spicer [facility] Start: 06-08-2022 End: 06-08-2022 ambulatory Laurie Spicer Other [facility] Other Start: 06-08-2022 Telephone encounter Laurie Spicer [facility] Start: 06-01-2022 Patient encounter procedure Laurie Spicer Work Phone: [facility] 250 DO Work Phone: Start: 06-01-2022 ambulatory Marissa Iglesias Facility:1 [id number] Start: 05-21-2022 Chart Update Laurie Spicer Work Phone: [facility] 250 DO Work Phone: Start: 05-20-2022 ambulatory Jaquelin Christie Faci lity:[id number] Start: 05-20-2022 End: 05-20-2022 ambulatory Laurie Spicer Facility:[facility] Start: 05-20-2022 End: 05-20-2022 ambulatory MD Jaquelin Christie Work Phone: [facility] Work Phone: Start: 05-20-2022 End: 05-20-2022 Patient encounter procedure MD Jaquelin Christie Work Phone: [facility] Work Phone: Start: 05-05-2022 End: 05-06-[address] DOCTOR WEBER Facility: Start: 04-20-2022 Office consultation new/estab patient 60 min Laurie Spicer Work Phone: [facility] 250 DO Work Phone: Start: 04-20-2022 Patient encounter procedure Laurie Spicer Work Phone: [facility] 250 DO Work Phone: Start: 04-20-[address] 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 Procedures Date Procedure Procedure Detail Performing Clinician [...] 09-12-2024 Adult BMI Screening Adult BMI Screening [facility] Start: 09-12-2024 Depression Screening Depression Screening [facility] Start: 09-12-2024 Tobacco Screening Tobacco Screening [facility] Start: 06-10-2024 Adult BMI Screening Adult BMI Screening [facility] Start: 06-10-2024 Depression Screening Depression Screening [facility] Start: 06-10-2024 Tobacco Screening Tobacco Screening [facility] Start: 03-04-2024 Adult BMI Screening Adult BMI Screening [facility] Start: 03-04-2024 Depression Screening Depression Screening [facility] Start: 03-04-2024 Tobacco Screening Tobacco Screening [facility] Start: 01-02-2024 COVID-19 Vaccine ( season) COVID-19 Vaccine ( season) [facility] Start: 01-02-2024 Influenza vaccination Influenza Vaccine [facility] Start: 09-13-2023 End: 09-13-2023 Patient encounter procedure 09/13/2023 12:45 PM EDT Procedure visit [facility] [address] [place] [address], [place] [id number] Alexei Galvan MD [address] [place] [address], [address] [place] [address] [facility] Start: 06-10-2023 End: 06-10-2023 Patient encounter procedure 06/10/2023 12:00 PM EST Procedure visit [facility] [address] [place] [id number] Alexei Galvan MD [address] [place] [address], [address] [place] [address] [facility] Start: 04-14-2023 DTaP,Tdap and Td Vaccines (2 - Tdap) DTaP,Tdap and Td Vaccines (2 - Tdap) [facility] Start: 02-22-2023 [facility]UV, Provider: Marissa Iglesias, Status: Pen, Time: 9:15 AM [facility], Provider: Marissa Iglesias, Status: Pen, Time: 9:15 AM [facility] 250 DO Work Phone: Start: 01-01-2023 COVID-19 Vaccine ( season) COVID-19 Vaccine ( season) [facility] Start: 01-01-2023 Influenza vaccination Influenza Vaccine [facility] Start: 08-31-2022 FUV, Provider: Marissa Iglesias, Status: Pen, Time: 9:15 AM [facility], Provider: Marissa Iglesias, Status: Pen, Time: 9:15 AM [facility] 250 DO Work Phone: Start: 06-30-2022 Adult BMI Follow Up Plan Adult BMI Follow Up Plan [facility] Start: 06-01-2022 FUV, Provider: Marissa Iglesias, Status: Pen, Time: 10:30 AM [facility], Provider: Marissa Iglesias, Status: Pen, Time: 10:30 AM [facility] [employer] 250 DO Work Phone: Start: 05-28-2022 [facility]: Marissa Iglesias, Status: Pen, Time: 9:00 AM [facility], Provider: Marissa Iglesias, Status: Pen, Time: 9:00 AM [facility] [employer] 250 DO Work Phone: Start: 01-01-2022 Influenza vaccination INFLUENZA (#1) [facility] Start: 2016 Administration of varicella zoster vaccine Zoster (Shingles) Vaccine (1 of 2) [facility] Start: 2016 SHINGRIX VACCINE (1 of 2) SHINGRIX VACCINE (1 of 2) [facility] Start: 11-05-2011 COLOGUARD (FIT-DNA) COLOGUARD (FIT-DNA) [facility] Start: 11-05-[address] [facility] Start: 11-05-2011 COLORECTAL CANCER SCREENING COLORECTAL CANCER SCREENING [facility] Start: 11-05-[address] COLONOGR[address] [facility] Start: 11-05-2011 DIABETES SCREEN DIABETES SCREEN [facility] Start: 11-05-2011 FECAL OCCULT BLOOD FECAL OCCULT BLOOD [facility] Start: 11-05-2011 LIPID SCREEN LIPID SCREEN [facility] Start: 11-05-[address] [facility] Start: 2006 [address] [facility] Start: 1996 HPV TESTING HPV TESTING [facility] Start: 11-05-1987 PAP TESTING PAP TESTING [facility] Start: 11-05-1987 Screening for malignant neoplasm of cervix Pap Smear [facility] Start: 1985 Urine microalbumin profile DTAP,TDAP,TD (1 - Tdap) [facility] Start: 1984 Adult BMI Follow Up Plan Adult BMI Follow Up Plan [facility] Start: 1984 HEPATITIS C SCREENING HEPATITIS C SCREENING [facility] Start: 1984 HIV SCREENING HIV SCREENING [facility] Start: 1978 Adult depression screening assessment DEPRESSION SCREENING [facility] Start: 05-07-1967 COVID-19 VACCINE (#1) COVID-19 VACCINE (#1) [facility] Start: 1966 Tobacco Counseling Tobacco Counseling [facility] Comprehensive metabo lic 1999 panel - Serum or Plasma [facility] MG Breast - bilatera l Screening [facility] US Thyroid gland [facility] Immunizations Immunization Date Immunization Notes Care Provider Deuce vee 02-28-2021 Pfizer-BioNTech COVI D-19 Vacc 30 MCG/0.3ML Intramuscular Suspension Laurie Spicer Work Phone: [facility] 250 DO Work Phone: 08-05-2020 Pfizer-BioNTech COVI D-19 Vacc 30 MCG/0.3ML Intramuscular Suspension Laurie Asif Spicer Work Phone: [facility] 250 DO Work Phone: 07-14-2020 Pfizer-BioNTech COVI D-19 Vacc 30 MCG/0.3ML Intramuscular Suspension Laurie Spicer Work Phone: [place] [address] DO Work Phone: 04-14-2013 diphtheria, tetanus toxoids and acellular pertussis vaccine Laurie Spicer Work Phone: [place] [address] DO Work Phone: Payers Date Payer Category Payer Medicaid [employer] [facility] [facility] [id number] 2022-Present [phone] [address] [place] [address] [id number] 2022 Medicaid O [employer] [id number] 2022 Unknown [id number] 2022 Self-pay 2015 Private Health Insurance [employer] A ETNA ASA GENERIC [id number] 2015-Present [phone] [place] [address] PPO [id number] 1966 Unknown [id number] [id number]. 356 1966 Unknown [id number] [id number]. 356 1966 Unknown [id number] 2.16.840.1.205644.3.579.2. 356 1966 Unknown [id number] [id number]. 356 1966 Unknown [id number] [id number]. 593 1966 Unknown [id number] 2.16.840.1.866161.3.579.2. 593 1966 Unknown [id number] 2.16.840.1.970566.3.579.2. 727 1966 Unknown [id number] [id number]. 1286 1966 Unknown [id number] 2.16.840.1.532430.3.579.2. 1286 1966 Unknown [id number] 2.16.840.1.099793.3.579.2. 1244 1966 Unknown [id number] [id number]. 1244 1959 Private Health Insurance [id number] 1959 Unknown [id number] Unknown [id number] Medicare Medicare [id number] Unknown Unknown [id number] 531 Social History Date Type Detail Facility Start: 05-10-2014 End: 11-13-2015 Tobacco smoking status ARIS Smokes tobacco daily [facility] Work Phone: History of tobacco use Cigarette Smoker C [facility] Work Phone: Start: 11-13-2015 End: 09-13-2023 Cigarettes smoked current (pack per day) - Reported [address] 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 Start: 1965 Sex Assigned At Not on file C [facility] Start: 1965 Sex Assigned At Female F [facility] Start: 03-04-2023 End: 09-13-2023 Sex Assigned At [facility] [employer] Other Start: 08-24-2022 Tobacco use and exposure Smokeless tobacco non-user [facility] Start: 03-04-2023 End: 09-13-2023 Alcohol intake Ex-drinker (finding) [facility] stem Adolescent depressio n screening assessment 0 [facility] Start: 12-06-2014 Sex Female (finding) [facility] Sex Male (finding) [facility] Start: 1965 Sex Assigned At Male F [facility] Medical Equipment Procedure Code Equipment Code Equipment Origin al Text Equipment Identifier Dates [id number], [id number] Star t: 12-14-2022 Blood Sugar Diagnostic (True [...] Medicare patient noneactive January 18, 2025 9:03am [facility] Work Phone: [phone] 100-193303-06-2025 Miscellaneous Notes* Telephone Encounter - Ramona Chapin - 07/06/2024 2:20 PM EST Woodworking Machine Operator contacted patient from the wait list to schedule follow up with Dr ESCALANTE. Patient states that she is trying to sort out insurance at this time and will call at another time to schedule. [facility] Telephone encounter Note* Telephone Encounter - Ramona Chapin - 07/06/2024 2:20 PM EST [employer]working [employer] Operator contacted patient from the wait list to schedule follow up with Dr ESCALANTE. Patient states that she is trying to sort out insurance at this time and will call at another time to schedule. [facility]05-13-2024 History of Present illness Narrative* Alexei Galvan [...] in 3 months for further injections. Kenalog [facility] [id number] Lot [id number] Exp 10/2024 Bupivacaine [facility] [id number] Lot [id number] Exp 12/02/2023 1. Neuralgia and neuritis - bupivacaine PF (MARCAINE) 0.5 % (5 mg/mL) injection 20 mg - triamcinolone acetonide (KENALOG-40) injection 20 mg 2. Chronic migraine without aura, intractable, with status migrainosus - bupivacaine PF (MARCAINE) 0.5 % (5 mg/mL) injection 20 mg - triamcinolone acetonide (KENALOG-40) injection 20 mg PLAN: documented in this [facility]02-20-2024 Miscellaneous Notes* Telephone Encounter - Diane Webb CNA - 06/22/2023 4:06 PM EST Open in error documented in this [facility]02-20-2024 Telephone encounter Note* Telephone Encounter - Diane Webb CNA - 06/22/2023 4:06 PM EST Open in error [facility]02-09-2024 Evaluation note* Encounter Date Diagnosis Assessment Notes Treatment Notes Treatment Clinical Notes Jun, 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 Place ice or a cool, wet towel on the sores 3 times a day for 20 minute incriments. It may help to reduce redness and swelling. If you are just getting a cold sore, try [id number] Abreva cream to reduce symptoms. Do not [...] Jun, Blister (ICD-10 - T14.8XXA) see above. [facility] Other 02-08-2024 History of Present illness Narrative* [...] by mouth as needed. lancets 33 gauge [facility] [place] USE TO TEST BLOOD SUGAR DAILY loratadine [...] in 3 months for further injections. Kenalog [facility] [id number] Lot [id number] Exp 12/2023 Bupivacaine [facility] [id number] Lot [id number] Exp 09/01/2023 1. Neuralgia and neuritis - bupivacaine PF (MARCAINE) 0.5 % (5 mg/mL) injection 20 mg - triamcinolone acetonide (KENALOG-40) injection 20 mg 2. Chronic migraine without aura, intractable, with status migrainosus - bupivacaine PF (MARCAINE) 0.5 % (5 mg/mL) injection 20 mg - triamcinolone acetonide (KENALOG-40) injection 20 mg PLAN: documented in this encounterBarney Children's Medical CenterExperts 911 [facility] [id number] Evaluation note* Encounter Date Diagnosis Assessment Notes Treatment Notes Treatment Clinical Notes Jan, Eczema, dyshidrotic (ICD-10 - L30.1) Discussed diagnosis with pt. Rx cream as directed for spot treatment and flare ups. Discussed need for chronic treatment with moisturizer. Recommended aquaphor, vasaline, or cerave lotion. F/u with derm for any persistent, changing, or worsening sx. Pt understood and agreed to tx plan. [facility] Other 08-31-2023 Evaluation note* Encounter Date Diagnosis Assessment Notes Treatment Notes Treatment Clinical Notes Dec, Acute pain of right knee (ICD-10 - M25.561) Will use prednisone for acute anti-inflammatory results. Advised to elevate leg and check xray today to r/o fracture. Dec, Right leg pain (ICD-10 - M79.604) Will check US to r/o DVT. Pt expresses understanding. [facility] Other 05-11-2023 Evaluation note* Encounter Date Diagnosis Assessment Notes Treatment Notes Treatment Clinical Notes August, Essential tremor (ICD-10 - G25.0) Resolved - will review symptoms w her Neurologist next week. August, Anxiety (ICD-10 - F41.9) chronic and controlled on present meds August, Meniere's disease, unspecified laterality (ICD-10 - H81.09) chronic and unchanged. [facility] Other 05-01-2023 History of Present illness Narrative* [...] well. LDL goal is 70 or below. [employer] [employer] 250 DO Work Phone: [phone]) 304-349902-07-2023 Evaluation note* Encounter Date Diagnosis Assessment Notes Treatment Notes Treatment Clinical Notes Jun, Orthostatic dizziness (ICD-10 - R42) Prescribed by her press operator apprentice; needs it sent to a different pharmacy. Followup with Dr. Iglesias. She is instructed to increase hydration, salt, and exercise as able. Jun, Anxiety (ICD-10 - F41.9) Pt requests to increase her dose as her situational and medical problems have increased her anxiety Jun, Smoker (ICD-10 - F17.200) Discussed modalities to help quit smoking [facility] Other 12-19-2022 History of Present illness Narrative* [...] HDL 62 triglycerides 103 and LDL 143. [employer] [employer] 250 DO Work Phone: 1(624) 326-928409-22-2022 NoteHNO ID: [id number] Author: Kyle Watson MD Service: ? Author Type: Physician Type: Progress Notes Filed: 01/22/2022 1:50 PM Note Text: INITIAL CONSULT - HEADACHE MEDICINE SERVICE DATE: January 22, 2022 Location: [facility] Participants: patient, adult daughter and provider Requesting Provider: Recommendations of care will be communicated by shared medical record. Member Name Role and Specialty Contact Info Address Comments Laurie Spicer MD Referring [address] [facility] [id number] - Subjective HPI: Elias Heller is a [...] a tilt table test with her local press operator apprentice. -Episodic migraine without aura. Reviewing her neurologist notes, I believe her management is a (more content not included)...[facility] 11-06-2021 Miscellaneous Notes* Telephone Encounter - Alyson Galaviz RN - 11/06/2021 9:00 AM EDT Patient calling with request for physician referral: Patient referred to Neurological Department. .Patient denies any new or worsening symptoms of which a provider is not aware: Yes. Patient's PCP is referring her to [facility] for severe headaches. Conferenced to the Appointment Center for scheduling. GO TO THE EMERGENCY ROOM OR CALL 911 IF: * You develop any new symptoms * Your condition worsens * You are concerned or anxious about your condition for any other reason. If you have any questions, you can call Nurse human resources consultant back. documented in this encounterMount St. Mary HospitalEvaluation noteNo assessment information [facility] Work Phone: Evaluation noteNo InformationNort [employer] Other Evaluation note* Diagnosis Chronic migraine without aura, intractable, with status migrainosus documented in this encounter [place] SystemEvaluation note* Diagnosis Neuralgia and neuritis- Primary Chronic migraine without aura, intractable, with status migrainosus documented [facility] this encounter [facility]* Diagnosis Neuralgia and neuritis- Primary Chronic migraine without aura, intractable, with status migrainosus documented in this encounter [facility] SystemHistory general Narrative - Reported* Type Description [...] Hospitalization History No Hospitalization histo ry information [facility] Other History general Narrative - Reported* Type [...] History tonsillectomy Hospitalization History SEE SURGICAL HX [facility] Other InstructionsNot on filedocumented in this encounter [facility] [place] SystemInstructions* Attachments The following attachments cannot be sent through Care Everywhere. * Migraines in adults (Albanian) documented in this encounterProKairos4 SystemInstructionsNot on file documented in this encounterProEncompass Health [facility] [place] SystemInstructions* Attachments The following attachments cannot be sent through Care Everywhere. * Migraines in adults (Albanian) documented in this encounterBarney Children's Medical CenterExperts 911 [facility] SystemReason for referral (narrative)No reason for referral information availableLakehealth [facility]point [facility] Work Phone: Summary Purpose Family [...] or prosecute any alcohol or drug abuse patient.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 Start Date End Date Laurie Spicer MD [address] [facility] [place] [id number] PCP - General Family Practice 10/17/15 Team Status: Inactive Member Role Status Dates Marissa Iglesias MD Attending Provider Active Jaquelin Christie MD Referring Provider Active Laurie Spicer MD Primary Care Provider Active Marine Tower Operator Relationship Specialty Start Date End Date Laurie Spicer MD [address] [place] [facility] [place] [address] PCP - General Family Medicine 06/30/21 Marine Tower Operator Relationship Specialty Start Date End Date Laurie Spicer MD [address] [place] [facility] [place] [address] PCP - General Family Medicine 06/30/21 Marine Tower Operator Relationship Specialty Start Date End Date Laurie Spicer MD [address] [place] [facility] [place] [phone] PCP - General Family Medicine 06/30/21 Marine Tower Operator Relationship Specialty Start Date End Date Laurie Spicer MD [address] [facility] [place] [phone] PCP - General Family Medicine 06/30/21 Marine Tower Operator Relationship Specialty Start Date End Date Laurie Spicer MD [address] [place] [facility] [place] [address] PCP - General Family Medicine 06/30/21 Team Status: Inactive Member Role Status Dates Laurie Spicer MD Primary Care Provider Active Start: January 18, 2025 End: January 18, 2025 Laurie Spicer MD Attending Provider Active St art: January 18, 2025 End: January 18, 2025 INFORMATION SOURCE (unrecogn ized section and content) DATE CREATED AUTHOR 02/01/2022 [facility] DATE CREATED AUTHOR AUTHOR'S ORGANIZ ATION 06/06/2022 [facility] DATE CREATED AUTHOR AUTHOR'S ORGANIZ ATION 08/31/2022 [facility] DATE CREATED AUTHOR AUTHOR'S ORGANIZ ATION 08/31/2022 [employer] DATE CREATED AUTHOR AUTHOR'S ORGANIZ ATION 09/10/2022 [facility] DATE CREATED AUTHOR AUTHOR'S ORGANIZ ATION 10/09/2022 [facility] DATE CREATED AUTHOR AUTHOR'S ORGANIZ ATION 09/14/2023 [facility] DATE CREATED AUTHOR AUTHOR'S ORGANIZ ATION 10/22/2023 [facility] Ambulatory Goals (unrecognized section and content) Goals [...] BE BASED ON THE PRIMARY CLINICAL RECORDS. [employer] provides no warranty or guarantee of the accuracy or completeness of information in this document.
[2025-01-25 09:44] LABS: Hematocrit 42.6 % (36.0-48.0); Hemoglobin 13.6 g/dL (12.0-16.0); Immature Granulocytes Abs Auto 0.02 10^3/uL (0.00-0.03); Immature Granulocytes Pct Auto 0.2 % (0.0-0.5); Lymphocytes Absolute Auto 2.6 10^3/uL (1.2-3.8); Mean Corpuscular HGB Conc 31.9 g/dL (29.9-35.2); Mean Corpuscular Hemoglobin 25.8 pg (26.7-34.0); Mean Corpuscular Volume 80.7 fL (81.0-99.0); Platelet Count 414 10^3/uL (150-450); Red Blood Count 5.28 10^6/uL (4.20-5.40); White Blood Count 8.2 10^3/uL (4.0-11.0)
[2025-01-25 09:56] LABS: Microalbum Creatinine Ratio Ur 6.6 mg/g (0.0-29.9)
[2025-01-25 10:43] LABS: Alanine Aminotransferase 38 U/L (14-59); Albumin Globulin Ratio 0.8; Albumin Level 3.3 g/dL (3.4-5.0); Alkaline Phosphatase 90 U/L (46-116); Anion Gap 10.2; Aspartate Amino Transferase 20 U/L (15-37); Blood Urea Nitrogen 14.0 mg/dL (7.0-18.0); Calcium 9.0 mg/dL (8.5-10.1); Carbon Dioxide 30.0 mmol/L (21.0-32.0); Chloride 105 mmol/L (98-107); Cholesterol 249 mg/dL (<=200); Estimated GFR (African America >60 (>=60 mL/min/1.73m^2); Estimated GFR (Non-African Ame >60 (>=60 mL/min/1.73m^2); Globulin 4.2 g/dL; Glucose 112 mg/dL (74-106); HDL Cholesterol 66 mg/dL (40-60); Potassium 4.2 mmol/L (3.5-5.1); Sodium 141 mmol/L (136-145); TSH W/ REFLEX FT4 1.701 uIU/mL (0.358-3.740); Total Protein 7.5 g/dL (6.4-8.2); Triglycerides 102 mg/dL (<=150); VLDL CHOLESTEROL 20.4 mg/dL
== END 2025-01-25 09:09 | disposition home or self-care (01) ==
LOC: LAB 09:13
PROVIDERS: PCP Family Medicine; Visit Provider Family Medicine
DX: Z00.00 Encounter for general adult medical examination without abnormal findings (principal); E11.65 Type 2 diabetes mellitus with hyperglycemia; R53.83 Other fatigue; E01.0 Iodine-deficiency related diffuse (endemic) goiter
CPT/HCPCS: 36415; 80053; 80061; 82043; 82570; 83036; 84443; 85025